=== PATIENT | male | born 1930 | race Caucasian/White ===

== ENCOUNTER 2017-05-06 17:19 | Inpatient (IN) ==
--- NOTE | 2017-05-06 17:41 | Emergency Department Note ---
Disposition Clinical Impression: Chronic kidney disease (CKD), CHF (congestive heart failure), Dyspnea Disposition: Admitted As Inpatient Condition: Fair Referrals: Tawny Leger CNP [Primary Care Provider] - Time of Disposition: 21:20 ([facility]) SOB HPI - General Stated Complaint: low oxygen Time Seen by Provider: 05/06/17 17:41 Source: patient, family Mode of arrival: ambulatory Nursing Notes Reviewed: Yes Vital Signs Reviewed: Yes - History of Present Illness Patient having increasing dyspnea with activity was seen by the family physician nurse practitioner last week receive 2 doses of Lasix in the left thigh then had his Lasix bumped up for 3 days patient apparently missed his dose today and now is having increasing shortness of breath swelling edema in the legs unable to keep his pulse ox up according to the home health nurse came out and checked on having no fevers no chills no light headedness he said some dyspnea but no dizziness he has had no neck pain denies rashes or lesions any abdominal pain dyspnea with activity no change or decrease in urine output Pt Subjective Complaint: shortness of breath Onset (ago): day(s) (worsening today) Context: other (recent increase in peripheral edema) Severity: moderate Consistency/Duration: constant Improves with: oxygen, medication (lasix) Worsens with: exertion Known history of: congestive heart failure Associated symptoms: Reports: cough, orthopnea. Denies: chest pain, pain with inspiration, fever, wheezing, sputum production, lower extremity pain, polyuria , polydipsia, parasthesias, palpitations, hemoptysis, diaphoresis, nausea/ vomiting, syncope, abdominal pain, sense of impending doom Treatment prior to arrival: oxygen, aspirin, diuretics - Related Data Home Medications Medication Instructions Recorded Confirmed Carvedilol [Coreg] 3.125 mg PO BIDWM 02/19/15 02/07/17 Levothyroxine [Synthroid] 25 mcg PO 0630 02/19/15 02/07/17 Oxybutynin [Ditropan] 5 mg PO DAILY 02/19/15 02/07/17 Tamsulosin [Flomax] 0.4 mg PO HS 02/19/15 02/07/17 Rivaroxaban [Xarelto] 20 mg PO DAILY 01/26/16 02/07/17 Albuterol Sulfate [Albuterol 2 inh IH Q6HR PRN 01/30/16 02/07/17 Inhaler] Atorvastatin Calcium [Lipitor] 80 mg PO DAILY 01/30/16 02/07/17 Finasteride [Proscar] 5 mg PO DAILY 01/30/16 02/07/17 Multivitamin [Multi-Day Vitamins] 1 tab PO DAILY 01/30/16 02/07/17 Nitroglycerin [Nitrostat] 0.4 mg SL Q5-6MIN PRN 01/30/16 02/07/17 Allergies Allergy/AdvReac Type Severity Reaction Status Date / Time Penicillins Allergy Hives Verified 02/07/17 19:50 All systems ED: reviewed and negative except as stated. Review of Systems: As Per HPI Constitutional: Denies: fever, chills, weakness Eyes: Denies: eye pain, eye discharge ENT ED: Denies: ear pain, throat pain Cardiovascular: Reports: dyspnea on exertion, orthopnea, edema, paroxysmal nocturnal dyspnea. Denies: chest pain, palpitations Respiratory: Denies: cough, dyspnea, wheezes Gastrointestinal: Denies: abdominal pain, nausea, vomiting Genitourinary: Reports: frequency. Denies: urgency, dysuria Musculoskeletal: Denies: back pain, neck pain Integumentary: Denies: rash, abrasion Neurological: Denies: headache, weakness Psychiatric: Denies: anxiety Endocrine: Denies: fatigue Hematological/Lymphatic: Denies: easy bleeding Allergic/Immunologic: Denies: facial swelling Past Medical History - Past Medical History Attestation: Yes The following information was validated with the patient. Source: patient, old records reviewed, obtained from family, nursing notes reviewed Medical history: Reports: renal disease, myocardial infarction, atrial fibrillation, hyperlipidemia, hypertension, CVA, TIA, thyroid disease, cardiomyopathy, CHF Surgical history: Reports: cataract (Bilateral cataract surgery), pacemaker/AICD Psychiatric history: Reports: no psych history - Social History Smoking Status: Never smoker Smokeless Tobacco Status: No Alcohol use: Reports: none Drug use: Reports: none Physical Exam - General Limitations: no limitations General appearance: alert, in no apparent distress - Head Head exam: atraumatic, normocephalic, normal inspection - Eye Eye exam: Present: normal appearance, PERRL, EOMI - ENT ENT exam: normal exam, normal oropharynx, mucous membranes moist, normal external ear exam - Neck Neck exam: Present: normal inspection, full ROM, trachea midline - Chest Chest inspection: Present: normal inspection, symmetric chest wall rise - Respiratory Respiratory exam: Present: prolonged expiratory phase, other (crackles) - Cardiovascular Cardiovascular exam: Present: regular rate, normal rhythm, normal heart sounds - Abdominal Exam Abdominal exam: Present: soft, Non-Tender, normal bowel sounds. Absent: mass, pulsatile mass - Expanded Upper Extremity Exam Shoulder exam: Present: normal inspection, full ROM Arm exam: Present: normal inspection, full ROM Elbow exam: Present: normal inspection, full ROM Forearm/Wrist exam: Present: normal inspection, full ROM Hand exam: Present: normal inspection, full ROM Vascular exam: Normal: capillary refill, radial pulse - Expanded Lower Extremity Exam Hip/Pelvis exam: Present: normal inspection, full ROM Upper leg exam: Present: normal inspection, full ROM Knee exam: Present: normal inspection, full ROM Lower leg exam: Present: normal inspection, full ROM, swelling (distal third) Ankle exam: Present: normal inspection, full ROM, swelling Foot/toe exam: Present: normal inspection, full ROM, swelling Neurovascular/Tendon exam: Present: normal capillary refill, normal fine/light touch. Absent: motor deficit, sensory deficit, tendon deficit Gait: observed and normal - Back Exam Back exam: Present: normal inspection, full ROM. Absent: muscle spasm - Neurological Exam Neurological exam: Present: alert, oriented X3, CN II-XII intact - Psychiatric Psychiatric exam: Present: normal affect, normal mood - Skin Skin exam: Present: warm, dry, intact, normal color Course Course Narrative: Seen and examined patient reportedly had sats at between 7888% at home on arrival here then with 2 L of O2 similarly had gone home he is running at 94-95 % does become a little distant dyspneic with activity as result patient was given 1 mg of Bumex after reviewing of the chest x-ray laboratory is obtained I spoke with Dr. Maldonado we repeated labs with the troponin being repeated it when of 0.01 he was comfortable with keeping the patient here as well as a patient patient was given additional 1 mg of Bumex here in the ER patient was transferred to [facility] for further management of the congestive heart failure most likely brought on by the renal impairment also most likely brought on because he missed a dose of medications earlier today as result transferred to [facility] for further management Vital Signs Temperature 98 F 05/06/17 17:39 Pulse Rate 69 05/06/17 17:39 Respiratory Rate 18 05/06/17 17:39 Blood Pressure 109/53 05/06/17 17:39 O2 Sat by Pulse Oximetry 100 05/06/17 17:39 Temperature 98 F 05/06/17 17:39 Pulse Rate 69 05/06/17 17:39 Respiratory Rate 18 05/06/17 17:39 Blood Pressure 109/53 05/06/17 17:39 O2 Sat by Pulse Oximetry 100 05/06/17 17:39 Oxygen Delivery Oxygen Delivery Nasal Cannula Shortness of Breath/Dyspnea - MDM Narrative Medical decision making narrative: Pulmonary edema myocardial infarction renal impairment - Differential Diagnosis Likely: congestive heart failure - Medical Records Medical records reviewed: Yes I reviewed the patient's medical records. - Lab Data Lab results reviewed: Yes I reviewed the patient's lab results. - Radiology Data Radiology results reviewed: Yes I reviewed the patient's radiology results. ITS Impressions Chest X-Ray 05/06/17 17:40 IMPRESSION: Findings suggest congestive heart failure D/ / Phil Griffith MD / Phil Griffith MD Interpreting Provider: Phil Griffith MD - EKG Data EKG attestation: Yes I reviewed and interpreted this EKG. EKG results narrative: Sinus rhythm first degree AV block right bundle-branch rate 66 OK-2 17 QRS 149 QT 470 and axis -63 PVCs unifocal etiology Critical Care Time Critical Care Time: No
[2017-05-06] MEDS ORDERED: Bumetanide 1 MG TABLET PO ONE (18:10)
[2017-05-06 18:31] LABS: Basophils % 0.3 %; Eosinophils % 0.1 %; Hematocrit 31.2 % (37.5-50.1); Hemoglobin 9.5 g/dL (12.9-16.9); Immature Granulocytes % 0.2 % (0-4); Lymphocytes # 0.4 K/mcL (0.6-4.6); Lymphocytes % 4.9 %; Mean Corpuscular HGB Conc 30.4 g/dL (31.6-35.5); Mean Corpuscular Hemoglobin 27.9 pg (28.0-33.3); Mean Corpuscular Volume 91.8 fL (83.0-100.0); Mean Platelet Volume 9.9 fL (9.4-12.4); Monocytes # 0.8 K/mcL (0.0-1.3); Monocytes % 9.6 %; Neutrophils # 7.4 K/mcL (1.6-8.9); Platelet Count 190 K/mcL (140-400); Red Cell Distribution Width 19.9 % (11.5-14.5); Segmented Neutrophils % 84.9 %
[2017-05-06 18:46] LABS: Calcium 9.3 mg/dL (8.6-10.8); Potassium 4.3 mEq/L (3.5-4.5)
[2017-05-07] MEDS ORDERED: Nitroglycerin 0.4 MG TAB.SUBL SL PRN (00:42)
[2017-05-07 07:15] LABS: Basophils % 0.5 %; Eosinophils # 0.1 K/mcL (0.0-0.6); Eosinophils % 1.4 %; Hematocrit 28.4 % (37.5-50.1); Hemoglobin 8.9 g/dL (12.9-16.9); Immature Granulocytes % 0.2 % (0-4); Lymphocytes # 0.5 K/mcL (0.6-4.6); Lymphocytes % 6.1 %; Mean Corpuscular HGB Conc 31.3 g/dL (31.6-35.5); Mean Corpuscular Hemoglobin 28.3 pg (28.0-33.3); Mean Corpuscular Volume 90.4 fL (83.0-100.0); Monocytes # 0.9 K/mcL (0.0-1.3); Monocytes % 11.3 %; Neutrophils # 6.7 K/mcL (1.6-8.9); Platelet Count 181 K/mcL (140-400); Red Blood Count 3.14 M/mcL (4.19-5.50); Red Cell Distribution Width 19.9 % (11.5-14.5); Segmented Neutrophils % 80.5 %
--- NOTE | 2017-05-07 07:29 | Internal Med History&Physical ---
Date of Encounter: 05/07/17 Time of Encounter: 06:53 Assessment and Plan (1) Acute congestive heart failure Current visit: Yes Status: Acute Acute congestive heart failure in patient with known history of ischemic cardiomyopathy. He failed to show improvement in the office as well as at the metal wire technician office and required ER visit. He is showing improvement with having had IV Bumex in the emergency room. He has elevated BNP beyond his chronic elevated state. I doubt he has had an acute OH. He does have chronically elevated troponins and no escalation beyond the baseline obtained in ER. He is showing improvement with 1 dose of IV Bumex. Continue with his chronic oxygen therapy. Qualifiers: Congestive heart failure type: systolic Qualified Code(s): I50.21 - Acute systolic (congestive) heart failure (2) Cardiomyopathy, ischemic Current visit: Yes Status: Chronic History of chronic ischemic cardiomyopathy. We will recheck an echocardiogram to document anatomy and ejection fraction. (3) Chronic kidney disease (CKD) Current visit: Yes Status: Chronic History chronic kidney disease and relatively stable. Slight exacerbation on admission. Will need to be careful not to over diurese. He has already been seen by nephrology in the past. Try to avoid nephrotoxic medications. Qualifiers: Chronic kidney disease stage: stage 3 (moderate) Qualified Code(s): N18.3 - Chronic kidney disease, stage 3 (moderate) (4) Paroxysmal atrial fibrillation Current visit: Yes Status: Chronic History of paroxysmal atrial fibrillation. Currently in sinus rhythm. We will continue the cardiac monitoring. Maintain his usual medications. He is already anticoagulated with Xarelto. (5) Hypertension Current visit: Yes Status: Chronic History of chronic hypertension. Continue current medication and follow blood pressure and try to avoid hypotension from over diuresis. Qualifiers: Hypertension type: essential hypertension Qualified Code(s): I10 - Essential (primary) hypertension (6) Recurrent falls Current visit: Yes Status: Acute Patient and daughter reports he has had recurring falls. Sometimes he trips over his oxygen cord as he is too weak to lift up his feet sometimes. He uses a walker at home. We will try to arrange outpatient physical therapy for gait training. He has at further risk of falls because of previous CVA. (7) Skin abrasion Current visit: Yes Status: Acute Healing skin abrasion on his left knee and slowly healing ulcer on left lateral foot. No secondary infection. Continue conservative measures. (8) History of CVA (cerebrovascular accident) Current visit: No Status: Chronic Previous CVA and gait abnormality and slower cognitive functioning. These appear to be stable, but weakness overall exacerbated with his cardiovascular he is using a walker at home. He no longer drives. (9) Hypothyroidism Current visit: Yes Status: Chronic History of chronic hypothyroidism. His current TSH is elevated more. We will adjust his medication upward. We will continue to watch closely because of amiodarone use Qualifiers: Hypothyroidism type: unspecified Qualified Code(s): E03.9 - Hypothyroidism , unspecified (10) Chronic anemia Current visit: Yes Status: Chronic He has a history of chronic anemia. He has plans to see Dr. Muhammad for colonoscopy as recommended by nephrology according to his daughter. His last colonoscopy was 10-12 years ago according to his history. No melena or hematochezia. The anemia may be secondary to his chronic kidney disease as well. He is not to the point where he needs a transfusion. (11) DVT prophylaxis Current visit: Yes Status: Acute He is already anticoagulated with Xarelto. Currently no sign of DVT. Internal Medicine - H&P: HPI Chief complaint: swelling in legs,could not get oxygen sarah to register Admitted From: Emergency Dept Plans for Post Hospital Care: Home History of present illness: Mr. Dorado is a 86 year old male with known history of paroxysmal atrial fibrillation, implanted pacer defibrillator, cardiomyopathy with 25% ejection fraction was admitted via the ER having come to the hospital not being able to register his oxygen saturation at home. Is found to have congestive heart failure with elevated BNP, increased pulmonary vascular changes on his chest x- ray, dyspnea, edema. Mildly elevated troponin. No chest pain. He had been evaluated in the office 04/30/17 by nurse practitioner due to edema and was told to increase his Lasix to 80 mg a morning 40 in the afternoon. He was seen by his metal wire technician Dr. Shannon the next day who agreed with the increased diuresis for 3 days. No other intervention at that point. He did recommend an echocardiogram, I do not see any done yet. Patient states that he had had decrease in his weight of 4 pounds and felt better and had less edema, but the edema went back up after about 2 days. His daughter thought that he was short of breath particularly when he was talking. He denies a cardiac type chest pain, palpitations, irregular heartbeat sensation. No nausea or vomiting or GI symptoms. He does note increased urine output after he had increased Lasix. He denied any orthopnea at home. He has had recurrent falling episodes at home. The last time he tripped over his oxygen cannula. The latest which she has an abrasion on the left knee and an ulcer on the left lateral fifth metatarsal from having laid on the floor for so long. When I was able to talk to the daughter via phone, she told me that her father was having increased shortness of breath especially noticeable when he is speaking. His oxygen saturation was 79%. She said he is getting more unstable on his feet and would like for him to have physical therapy to keep him ambulating better and stronger and less falling episodes. Past Med Surg Social Fam HX - Past Medical History Medical history: atrial fibrillation, cardiomyopathy (20-25% EF/AICD present), CHF, CVA, hyperlipidemia, hypertension, myocardial infarction, renal disease, thyroid disease, TIA Psychiatric history: no psych history - Past Surgical History Surgical History: carotid endarterectomy (Right side), cataract, pacemaker/AICD - Social History Smoking Status: Never smoker Smokeless Tobacco Status: No Alcohol use: none Drug use: none - Family History Father History Unknown: Yes Living Status: Hx Family Cardiac Disorders: Yes (Heart disease, history of passing out a lot) Mother History Unknown: Yes Living Status: Hx Family Cardiac Disorders: Yes (History of angina and CVA) Internal Medicine - H&P: Meds Carvedilol [Coreg] 3.125 mg PO BIDWM 02/19/15 [History] Levothyroxine [Synthroid] 50 mcg PO 0630 02/19/15 [History] Tamsulosin [Flomax] 0.4 mg PO HS 02/19/15 [History] Rivaroxaban [Xarelto] 10 mg PO DAILY 01/26/16 [History] Albuterol Sulfate [Albuterol Inhaler] 2 inh IH Q4HR PRN 01/30/16 [History] Atorvastatin Calcium [Lipitor] 80 mg PO DAILY 01/30/16 [History] Finasteride [Proscar] 5 mg PO DAILY 01/30/16 [History] Multivitamin [Multi-Day Vitamins] 1 tab PO DAILY 01/30/16 [History] Nitroglycerin [Nitrostat] 0.4 mg SL Q5-6MIN PRN 01/30/16 [History] Amiodarone [Cordarone] 200 mg PO DAILY 05/07/17 [History] Aspirin [Lo-Dose Aspirin EC] 81 mg PO DAILY 05/07/17 [History] Docusate [Colace] 100 mg PO DAILY 05/07/17 [History] Furosemide [Lasix] 40 mg PO BIDWM 05/07/17 [History] Isosorbide MONOnitrate (24 HR) [Imdur] 30 mg PO DAILY 05/07/17 [History] Temazepam [Restoril] 7.5 mg PO HS PRN 05/07/17 [History] 3 Allergy/AdvReac Type Severity Reaction Status Date / Time Penicillins Allergy Hives Verified 05/07/17 00:15 - Constitutional Constitutional: weakness (States he is weaker in his legs ), no anorexia, no fever(s), no night sweats - EENT Eyes: no loss of vision, no other visual disturbances Ears: no ear discharge, no ear pain Nose, mouth and throat: no sinus pressure, no sore throat - Cardiovascular Cardiovascular ROS IM: no chest pain, no irregular heart rhythm, no lightheadedness, no syncope - Respiratory Respiratory: wheezing (He can hear himself wheezing when he speaks or takes deep breaths), no hemoptysis, no excessive phlegm production - Gastrointestinal Gastrointestinal: no change in bowel habits, no coffee ground emesis, no constipation, no diarrhea, no hematemesis, no melena, no vomiting - Genitourinary Genitourinary ROS male: urinary incontinence (Noticed when he cannot get to the toilet in time), urinary urgency (He states that nurses cannot get to him soon enough to give the urinal or sit on the toilet), no dysuria - Musculoskeletal Musculoskeletal ROS IM: muscle weakness (He feels that he is having generalized weakness in his legs) - Integumentary Integumentary IM: non-healing lesions (He showed me the scabbed abrasion on his knee and the slowly healing ulcer on his left fifth metatarsal area) - Neurological Neurological ROS: abnormal gait (He is unstable when walking and needs to use his walker), frequent falls (And easily trips and falls over his oxygen cannula) , no confusion, no dizziness, no radicular pain, no tremor(s), no vertigo - Psychiatric Psychiatric: no change in appetite, no confusion - Endocrine Endocrine IM: no excessive sweating, no polydipsia, no polyuria - Allergic/Immunologic Allergic/Immunologic: wheezing (Sometimes he can hear wheezing when he is taking deep breaths or talking) - Constitutional Vitals: Temp Pulse Resp BP Pulse Ox 97.7 F 70 14 95/54 93 05/07/17 04:00 05/07/17 04:00 05/07/17 04:00 05/07/17 04:00 05/07/17 04:00 General appearance: Present: A&O X 3, no acute distress, answers questions appropriately - Eye Eye exam: Present: EOMI, PERRL. Absent: scleral icterus - ENT ENT exam: Present: normal external ear exam, TM's normal bilaterally - Neck Neck exam general surgery: Absent: lymphadenopathy, tenderness, nuchal rigidity , thyromegaly - Respiratory Respiratory exam: Present: decreased breath sounds (Decreased breath sounds throughout, particularly decreased breath sounds in the left side heard anteriorly.), wheezes (I can hear audible wheezing when he breathes in and out.) . Absent: rales - Cardiovascular Cardiovascular exam: Present: RRR, +S1, +S2, systolic murmur (2/6 systolic murmur at the outlet and left sternal border.). Absent: gallop, JVD - GI/Abdominal GI/Abdominal exam: Present: soft. Absent: hepatomegaly, mass, pulsatile mass, splenomegaly, tenderness - Extremities Exam Extremities exam: Present: normal capillary refill, pedal edema (He has pitting edema from his feet to nearly his knees bilaterally.), warm. Absent: calf tenderness, cyanotic, joint swelling Additional comments: Left proximal fifth metatarsal area shows a 4 mm healing ulcer covered with a Band-Aid. Left knee shows a 1 cm abrasion with scab which is healing without secondary infection. - Neurological Exam Neurological exam: Present: alert, CN II-XII intact, oriented X3, strengths equal and symetr throughout (As tested in bed. I did not get him out of bed to test his gait or balance.) - Skin Skin exam: Present: abrasion (Healing abrasion at the left knee about 1 cm diameter with a scab.), erythema (Both his feet are slightly reddened from the edema.) Additional comments: Left proximal fifth metatarsal shows a 4 mm healing superficial ulcer covered with a Band-Aid. No secondary infection. Internal Med - H&P Results - Labs CBC & Chem 7: 05/07/17 07:02 05/07/17 07:02 Labs: Labs have been reviewed. Increased BNP, slightly increased creatinine with a history of chronic kidney disease. Chronic anemia noted. - VTE Reasons for not Prescribing Prophylaxis: Not indicated-Anticoagulated or INR therapeutic
[2017-05-07 07:30] LABS: Calcium 8.9 mg/dL (8.6-10.8); Potassium 4.1 mEq/L (3.5-4.5)
[2017-05-07 07:31] LABS: Chol/HDL Ratio 2.7 (0-4.9)
[2017-05-07] MEDS: Isosorbide MONOnitrate (24 HR) 30 MG TAB.ER.24H PO SCH (09:20)
[2017-05-07] MEDS: Finasteride 5 MG TABLET PO SCH (09:20)
[2017-05-07] MEDS: Multivit/Ca/Min/Fe/FA 1 TAB TABLET PO SCH (09:20)
[2017-05-07] MEDS: *HR* Rivaroxaban 10 MG TABLET PO SCH (09:20)
[2017-05-07] MEDS: Furosemide 40 MG TABLET PO SCH ×2 (09:20→17:03)
[2017-05-07] MEDS: *HR* Amiodarone 200 MG TABLET PO SCH (09:20)
[2017-05-07] MEDS: Aspirin Enteric Coated 81 MG Tablet PO SCH (09:20)
[2017-05-07 13:59] LABS: Thyroid Stimulating Hormone 6.52 mcIU/mL (0.350-4.840)
--- NOTE | 2017-05-07 14:22 | Electrocardiograph Report ---
[place] [id number] Test Date: 2017-05-06 Pat Name: Amandeep Dorado Department: 2000 Room: 116 Gender: M Inspector Watch Assembly: : 1930 Requested By: Shital Pereyra Order Number: [id number] Reading MD: Mary Jesus Measurements Intervals [place] Rate: 66 P: 257 CT: 217 QRS: -63 QRSD: 149 T: 20 QT: 470 QTc: 484 Interpretive Statements SINUS RHYTHM WITH FIRST DEGREE AV BLOCK WITH OCCASIONAL VENTRICULAR PREMATURE COMPLEXES MARKED LEFT AXIS DEVIATION RIGHT BUNDLE BRANCH BLOCK Electronically Signed On 05-07-2017 14:20:31 EST by Mary Jesus
--- NOTE | 2017-05-07 19:26 | Event Note ---
Date of Encounter: 05/07/17 Time of Encounter: 19:23 I reevaluated patient rakan. He denies any chest pain or dyspnea. The wheezing when he is taking deep breaths and talking is gone. He is able to sit in a chair. His saturations while wearing oxygen is good. He still has troubles collecting urine as he is incontinent and having urgency as well I spoke with his daughter via phone. We talked about arranging outpatient physical therapy help with his gait. She states she does much better when he is more active. He has home OT but they only work with upper body and do not want to do any walking or use his stationary bicycle. We talked about the workup including echocardiogram tomorrow. He is planning on having colonoscopy with Dr. Muhammad for his anemia as recommended by the cra officer. (She wanted to have him get that done well in the hospital but I told her that would not be indicated nor safe in his current condition.) If he is stable we will consider discharge to home tomorrow night with close follow-up.
[2017-05-08 02:23] LABS: Bilirubin,Urine Negative (Negative); Blood,Urine Moderate (Negative); Clarity,Urine Slightly Cloudy (Clear); Color,Urine Yellow (Yellow); Glucose,Urine (UA) Normal (Normal); Ketones,Urine Negative (Negative); Leukocyte Esterase,Urine Small (Negative); Nitrite,Urine Positive (Negative); Protein,Urine Negative (Neg-Trace); Specific Gravity,Urine 1.015 (1.010-1.025); Urobilinogen,Urine Normal (Normal)
[2017-05-08 02:24] LABS: Bacteria,Urine Moderate per hpf (None-Few); Hyaline Casts,Urine Few per lpf (None-Few)
[2017-05-08 05:42] LABS: Basophils % 0.5 %; Eosinophils # 0.1 K/mcL (0.0-0.6); Eosinophils % 1.3 %; Hematocrit 27.8 % (37.5-50.1); Hemoglobin 8.6 g/dL (12.9-16.9); Immature Granulocytes % 0.3 % (0-4); Lymphocytes # 0.6 K/mcL (0.6-4.6); Mean Corpuscular HGB Conc 30.9 g/dL (31.6-35.5); Mean Corpuscular Volume 90.6 fL (83.0-100.0); Monocytes % 12.8 %; Neutrophils # 5.8 K/mcL (1.6-8.9); Platelet Count 166 K/mcL (140-400); Red Blood Count 3.07 M/mcL (4.19-5.50); Red Cell Distribution Width 19.9 % (11.5-14.5); Segmented Neutrophils % 77.1 %
[2017-05-08 05:55] LABS: Calcium 8.6 mg/dL (8.6-10.8); Potassium 4.2 mEq/L (3.5-4.5)
[2017-05-08] MEDS ORDERED: Bumetanide 1 MG/4 ML VIAL IVP ONE (07:09)
--- NOTE | 2017-05-08 07:11 | Discharge Summary ---
Date of Encounter: 05/13/17 Time of Encounter: 06:56 - Discharge Diagnosis (1) Acute congestive heart failure Priority: Primary Status: Acute Comments: Patient with known history of ischemic cardiac myopathy was admitted with acute congestive heart failure and hypoxia. His workup in the ER included a mildly elevated troponin which remained stable and he has had this in the past. Unlikely for an acute IA. He had no cardiac type chest pain. He was given Bumex intravenously and improved. His BNP was in the 3000 range. His lung findings have been minimal. He is having no dyspnea. No cardiac chest pain. He is been ambulatory in the hallway maintaining good saturation and good heart rate. Follow-up echocardiogram showed 30% ejection fraction as well as moderate to severe mitral regurgitation. He is been seen by hydraulic billet maker recently. His congestive heart failure is stable on day of discharge to transfer to swing bed, but he had deconditioning and will have ongoing therapies. Qualifiers: Congestive heart failure type: systolic Qualified Code(s): I50.21 - Acute systolic (congestive) heart failure (2) Cardiomyopathy, ischemic Priority: Secondary Status: Chronic Comments: Known history of ischemic cardiomyopathy. His echocardiogram showed ejection fraction 30% and moderate to severe mitral regurgitation. This is no significant change for him. He has seen a hydraulic billet maker recently. (3) Chronic kidney disease (CKD) Priority: Secondary Status: Chronic Comments: History of chronic kidney disease with relatively stable creatinine and 2.5 range. He sees a dry mill operator in [place]. I did not change his medications. Qualifiers: Chronic kidney disease stage: stage 3 (moderate) Qualified Code(s): N18.3 - Chronic kidney disease, stage 3 (moderate) (4) Paroxysmal atrial fibrillation Priority: Secondary Status: Chronic Comments: He has a history of paroxysmal atrial fibrillation. During the stay he has been in normal sinus rhythm. He is a pacer defibrillator. I did not change his cardiac medications. He is anticoagulated. (5) Hypertension Priority: Secondary Status: Chronic Comments: His blood pressures have been under good control. I did not alter his cardiac hypertensive medications. Qualifiers: Hypertension type: essential hypertension Qualified Code(s): I10 - Essential (primary) hypertension (6) Recurrent falls Priority: Secondary Status: Acute Comments: He has had recurrent falling episodes at home. Sometimes he will trip over his oxygen cannula. He is to use his walker. He was stable medically regarding his congestive heart failure but with his weakness, gait abnormality and deconditioning he was transferred to a swing bed for ongoing therapies. (7) Skin abrasion Priority: Secondary Status: Acute Comments: He has an abrasion at the left knee as well as an ulcer at the left lateral foot. Both are healing slowly. These occurred from a fall. (8) History of CVA (cerebrovascular accident) Priority: Secondary Status: Chronic Comments: History of previous CVA and gait abnormality. He uses a walker. He became deconditioned having been hospitalized for congestive heart failure and will be transferred to a swing bed. (9) Hypothyroidism Priority: Secondary Status: Chronic Comments: History of chronic hypothyroidism. His last TSH was elevating and his Synthroid was increased to 75 g. Qualifiers: Hypothyroidism type: unspecified Qualified Code(s): E03.9 - Hypothyroidism , unspecified (10) Chronic anemia Priority: Secondary Status: Chronic Comments: His history of chronic anemia. Likely this is from chronic kidney disease. His dry mill operator started him on Procrit recently. He is planning to see GI for upper and lower endoscopy. His hemoglobin has been stable. No obvious acute bleeding. (11) Vomiting Priority: Secondary Status: Acute Comments: Patient developed emesis. He had no abdominal pain. His workup included CT scan of the abdomen, urine testing, blood work which basically unremarkable except for minimally elevated LFTs. The PPI was started in case she was having gastric ulcer or reflux disease triggering this. Prior to his discharge from [facility] to a swing bed he had had no vomiting for 2 days. He does have an appointment to see a GI specialist in a few weeks. Qualifiers: Vomiting type: unspecified Vomiting Intractability: non-intractable Nausea presence: without nausea Qualified Code(s): R11.11 - Vomiting without nausea - Discharge Medications Prescriptions: Levothyroxine [Synthroid] 75 mcg PO DAILY@0630 #30 tablet Home Medications: Carvedilol [Coreg] 3.125 mg PO BIDWM 02/19/15 [History] Tamsulosin [Flomax] 0.4 mg PO HS 02/19/15 [History] Rivaroxaban [Xarelto] 10 mg PO DAILY 01/26/16 [History] Albuterol Sulfate [Albuterol Inhaler] 2 inh IH Q4HR PRN 01/30/16 [History] Atorvastatin Calcium [Lipitor] 80 mg PO DAILY 01/30/16 [History] Finasteride [Proscar] 5 mg PO DAILY 01/30/16 [History] Multivitamin [Multi-Day Vitamins] 1 tab PO DAILY 01/30/16 [History] Nitroglycerin [Nitrostat] 0.4 mg SL Q5-6MIN PRN 01/30/16 [History] Amiodarone [Cordarone] 200 mg PO DAILY 05/07/17 [History] Aspirin [Lo-Dose Aspirin EC] 81 mg PO DAILY 05/07/17 [History] Docusate [Colace] 100 mg PO DAILY 05/07/17 [History] Furosemide [Lasix] 40 mg PO BIDWM 05/07/17 [History] Isosorbide MONOnitrate (24 HR) [Imdur] 30 mg PO DAILY 05/07/17 [History] Temazepam [Restoril] 7.5 mg PO HS PRN 05/07/17 [History] Levothyroxine [Synthroid] 75 mcg PO DAILY@0630 #30 tablet 05/08/17 [Rx] Allergies/Adverse Reactions: 3 Allergy/AdvReac Type Severity Reaction Status Date / Time Penicillins Allergy Hives Verified 05/07/17 00:15 Procedures/tests Complete & Pending: Procedures Performed prior 72 hours Category Date Time Status EV echocardiogram Routine Y 05/07/17 06:57 Ordered Date of admission: 05/06/17 23:56 Primary care physician: Tawny Leger CNP Discharging clinician: Dre Maldonado Anticipated date of discharge: 05/13/17 - Patient Status Disposition: Transfer Hospital Swing Bed Condition: Good Functional capacity at discharge: uses cane/walker Overall status at discharge: patient is not back to baseline - Discharge Instructions Follow Up With: Tawny Leger CNP [Primary Care Provider] - Forms: ED Satisfaction Letter - Diet and Activity Activity: ambulate only with your walker, wear oxygen at all times Diet: low fat, low cholesterol, low salt diet Interval History: He has had no vomiting for 2 days. He feels better except he is deconditioned. He will be transferred to a swing bed. Denies chest pain or dyspnea or abdominal pain. Hospital course: Mr. Dorado is a 86 year old male with known history of ischemic cardiomyopathy and chronic kidney disease was admitted with acute congestive heart failure and hypoxia. He became stable from his congestive heart failure. However he is deconditioning, weakness with his gait and risk for falling. We are arranging swing bed for ongoing therapies prior to going home. Please see the above diagnoses and plans - Time Spent with Patient Total time spent providing and/or coordinating discharge services: - Constitutional Vitals: Temp Pulse Resp BP Pulse Ox 98.3 F 67 16 91/52 97 05/08/17 03:40 05/08/17 03:40 05/08/17 03:40 05/08/17 03:40 05/08/17 03:40 General appearance: Present: A&O X 3, no acute distress, answers questions appropriately - Respiratory Additional comments: Rare faint crackles heard throughout. Audible slight wheeze heard when taking a deep breath. Breath sounds heard in all gallegos - Cardiovascular Cardiovascular exam: Present: RRR, +S1, +S2, systolic murmur (2/6 systolic murmur) - GI/Abdominal GI/Abdominal exam: Present: soft. Absent: tenderness - Extremities Exam Extremities exam: Absent: calf tenderness Additional comments: Mild pitting edema of the feet and up to two thirds of the mahoney. Overall improved. - Skin Additional comments: The left knee abrasion and left foot ulcer unchanged - VTE Reasons for not Prescribing Prophylaxis: Not indicated-Anticoagulated or INR therapeutic
[2017-05-08] MEDS: *HR* Rivaroxaban 10 MG TABLET PO SCH (08:53)
[2017-05-08] MEDS: Furosemide 40 MG TABLET PO SCH ×2 (08:53→16:13)
[2017-05-08] MEDS: Isosorbide MONOnitrate (24 HR) 30 MG TAB.ER.24H PO SCH (08:53)
[2017-05-08] MEDS: Aspirin Enteric Coated 81 MG Tablet PO SCH (08:54)
[2017-05-08] MEDS: Multivit/Ca/Min/Fe/FA 1 TAB TABLET PO SCH (08:54)
[2017-05-08] MEDS: Finasteride 5 MG TABLET PO SCH (08:54)
[2017-05-08] MEDS: *HR* Amiodarone 200 MG TABLET PO SCH (08:54)
[2017-05-08] MEDS ORDERED: Ondansetron ODT 4 MG TAB.RAPDIS SL ONE (15:55)
--- NOTE | 2017-05-08 19:45 | Internal Med Progress Note ---
Date of Encounter: 05/08/17 Time of Encounter: 19:42 - Assessment and plan (1) Acute congestive heart failure Current Visit: Yes Status: Acute Assessment and plan: History of acute congestive heart failure. His ejection fraction today was measured as 30%. He has had good urine output. His weight has decreased. He walked in the hallway well and had no dyspnea or chest pain or tachycardia. If he is stable tomorrow he may be discharged to home. We will plan to continue his Lasix 40mg twice a day, if he has extra edema he will take an extra one. Qualifiers: Congestive heart failure type: systolic Qualified Code(s): I50.21 - Acute systolic (congestive) heart failure (2) Cardiomyopathy, ischemic Current Visit: Yes Status: Chronic Assessment and plan: He had an echocardiogram done today and ejection fraction is 30%. This is about what he has had in the past. (3) Chronic kidney disease (CKD) Current Visit: Yes Status: Chronic Assessment and plan: His creatinine is stable. He sees nephrology at [place]. Qualifiers: Chronic kidney disease stage: stage 3 (moderate) Qualified Code(s): N18.3 - Chronic kidney disease, stage 3 (moderate) (4) Paroxysmal atrial fibrillation Current Visit: Yes Status: Chronic Assessment and plan: He has remained in sinus rhythm the entire visit. (5) Hypertension Current Visit: Yes Status: Chronic Assessment and plan: His blood pressure has been under good control. Qualifiers: Hypertension type: essential hypertension Qualified Code(s): I10 - Essential (primary) hypertension (6) Recurrent falls Current Visit: Yes Status: Acute (7) Skin abrasion Current Visit: Yes Status: Acute (8) History of CVA (cerebrovascular accident) Current Visit: No Status: Chronic (9) Hypothyroidism Current Visit: Yes Status: Chronic Assessment and plan: I increased his Synthroid today as his TSH is elevating. Qualifiers: Hypothyroidism type: unspecified Qualified Code(s): E03.9 - Hypothyroidism , unspecified (10) Chronic anemia Current Visit: Yes Status: Chronic Assessment and plan: Relatively stable. He is due to see GI for upper and lower endoscopies. He does have chronic renal failure contributing to the anemia. (11) DVT prophylaxis Current Visit: Yes Status: Acute (12) Vomiting Current Visit: Yes Status: Acute Assessment and plan: He had an episode of vomiting this afternoon during his echocardiogram. This evening after supper he vomited also. It is not projectile. He has normal bowel sounds. No abdominal tenderness. He had a good bowel movement today. He had Zofran. We will monitor. Qualifiers: Vomiting type: unspecified Vomiting Intractability: non-intractable Nausea presence: without nausea Qualified Code(s): R11.11 - Vomiting without nausea - Subjective Interval history: I saw the patient earlier this morning and again tonight. This morning he felt fine. No chest pain, palpitation, dyspnea. He was eager to plan to go home tonight. However, this afternoon he vomited and again tonight when I came to reevaluate him he regurgitated his supper. It was not projectile. Today he had a good bowel movement. He has good bowel sounds. He feels fine afterwards. I ambulated him down the entire length of the hallway with his oxygen and his walker and he did great. Afterwards his saturation was 96% pulse 70. He is having no symptoms currently. Since she has had 2 vomiting episodes today were going to postpone his discharge tonight. His daughter came in this evening and we talked this over. - Constitutional Vitals: Temp Pulse Resp BP Pulse Ox 97.6 F 66 16 108/61 100 05/08/17 17:03 05/08/17 17:03 05/08/17 17:03 05/08/17 17:03 05/08/17 17:03 General appearance: Present: A&O X 3, no acute distress, answers questions appropriately - Respiratory Additional comments: Slightly diminished breath sounds throughout, diminished breath sounds left base but better. No rhonchi or rales. No respiratory distress - Cardiovascular Cardiovascular exam: Present: RRR, +S1, +S2, systolic murmur (2/6 systolic murmur) - GI/Abdominal GI/Abdominal exam: Present: normal bowel sounds, soft, no peritoneal signs. Absent: distended, guarding, mass, tenderness - Extremities Exam Additional comments: He still has some edema in lower extremities, he has his elastic stockings in place. Internal Medicine: Result - Labs CBC & Chem 7: 05/08/17 05:25 05/08/17 05:25 Labs: Short CBC 05/08/17 Range/Units 05:25 WBC 7.5 (4.3-11.1) K/mcL Hgb 8.6 L (12.9-16.9) g/dL Hct 27.8 L (37.5-50.1) % Plt Count 166 (140-400) K/mcL Neutrophils # 5.8 (1.6-8.9) K/mcL BMP 05/08/17 05:25 Sodium 138 Potassium 4.2 Chloride 105 Carbon Dioxide 25 BUN 51 H Creatinine 2.25 H Glucose 101 H Calcium 8.6 Urine 05/08/17 Range/Units 01:30 Urine Color Yellow (Yellow) Urine Clarity Slightly Cloudy A (Clear) Urine pH 6.0 (5.0-8.0) pH Units Ur Specific [place] 1.015 (1.010-1.025) Urine Protein Negative (Neg-Trace) mg/dL Urine Glucose (UA) Normal (Normal) mg/dL Labs have been reviewed. He continues with his chronic kidney failure. His hemoglobin is slightly lower today. He has a history of chronic anemia and plans an upper and lower GI soon. - Impressions Impressions Echocardiogram 05/08/17 07:00 Impressions: LVEF 30%. Moderately dilated left ventricle. Mild concentric left ventricular hypertrophy. Atypical septal motion consistent with paced rhythm. Moderate left ventricular diastolic dysfunction. Mildly dilated right ventricle with normal appearing function. Mild-moderate aortic regurgitation. Moderate-severe mitral regurgitation. Severe tricuspid regurgitation. Severe pulmonary hypertension. Pleural effusion. A device lead was visualized in the right atrium and right ventricle. Left Ventricular Wall Motion: Rest Echo Findings The apex, apical inferior, mid inferior, basal inferior, apical anterior, mid anterior, basal anterior, apical septal, mid inferior septal, basal inferior septal, apical lateral, mid anterior lateral, basal anterior lateral, mid anterior septal, mid inferior lateral, basal anterior septal and basal inferior lateral almanza were hypokinetic. Findings: Study Quality * Technically adequate exam. ECG Findings * Paced rhythm. Left Ventricle * LVEF 30%. * Moderately dilated left ventricle. * Mild concentric left ventricular hypertrophy. * Atypical septal motion consistent with paced rhythm. * Moderate left ventricular diastolic dysfunction. Right Ventricle * Mildly dilated right ventricle with normal appearing function. Left Atrium * Moderately dilated left atrium. Right Atrium * Mildly dilated right atrium. Interatrial Septum * Interatrial septum not well evaluated. Aortic Valve * Aortic valve not well visualized. * Grossly, mildly calcified aortic valve leaflets. * Mild-moderate aortic regurgitation. * No aortic stenosis. Mitral Valve * Mildly thickened mitral valve leaflets. * Mild mitral annular calcification * Moderate-severe mitral regurgitation. * No mitral stenosis. Tricuspid Valve * Normal tricuspid valve structure. * Severe tricuspid regurgitation. * Severe pulmonary hypertension. Pulmonic Valve * Pulmonic valve not well visualized. Aorta * Normally sized aortic root. Pericardium * The pericardium appears normal. IVC * Normal IVC dimensions and inspiratory collapse. Device lead * A device lead was visualized in the right atrium and right ventricle. Pulmonary Artery * Normal visualized portions of the main pulmonary artery. Pleural Effusion * Pleural effusion. - VTE Reasons for not Prescribing Prophylaxis: Not indicated-Anticoagulated or INR therapeutic Documentation of Mechanical Device: Graduated compression elastic hosiery Consult Discharge Plan - Plan Referrals: Tawny Leger SHAREPOINT TRAINER [Primary Care Provider] -
[2017-05-09] MEDS: Ondansetron ODT 4 MG TAB.RAPDIS SL PRN ×2 (00:10→11:25)
[2017-05-09 05:49] LABS: Basophils % 0.3 %; Hematocrit 28.5 % (37.5-50.1); Hemoglobin 8.7 g/dL (12.9-16.9); Immature Granulocytes % 0.1 % (0-4); Lymphocytes # 0.4 K/mcL (0.6-4.6); Lymphocytes % 5.1 %; Mean Corpuscular HGB Conc 30.5 g/dL (31.6-35.5); Mean Corpuscular Hemoglobin 28.2 pg (28.0-33.3); Mean Corpuscular Volume 92.2 fL (83.0-100.0); Mean Platelet Volume 9.9 fL (9.4-12.4); Monocytes # 0.8 K/mcL (0.0-1.3); Monocytes % 10.6 %; Neutrophils # 6.6 K/mcL (1.6-8.9); Platelet Count 179 K/mcL (140-400); Red Blood Count 3.09 M/mcL (4.19-5.50); Red Cell Distribution Width 19.5 % (11.5-14.5); Segmented Neutrophils % 83.9 %
[2017-05-09 06:02] LABS: Albumin 2.4 g/dL (3.5-5.0); Albumin/Globulin Ratio 0.7 (1.1-2.2); Bilirubin,Total 1.3 mg/dL (0.2-1.2); Calcium 8.9 mg/dL (8.6-10.8); Globulin 3.4 g/dL (2.4-3.5); Potassium 4.4 mEq/L (3.5-4.5); Total Protein 5.8 g/dL (6.0-8.3)
[2017-05-09] MEDS: Finasteride 5 MG TABLET PO SCH (09:54)
[2017-05-09] MEDS: *HR* Amiodarone 200 MG TABLET PO SCH (09:54)
[2017-05-09] MEDS: Isosorbide MONOnitrate (24 HR) 30 MG TAB.ER.24H PO SCH (09:54)
[2017-05-09] MEDS: Aspirin Enteric Coated 81 MG Tablet PO SCH (09:55)
[2017-05-09] MEDS: *HR* Rivaroxaban 10 MG TABLET PO SCH (09:55)
[2017-05-09] MEDS: Furosemide 40 MG TABLET PO SCH ×2 (09:55→17:52)
[2017-05-09] MEDS: Multivit/Ca/Min/Fe/FA 1 TAB TABLET PO SCH (09:56)
--- NOTE | 2017-05-09 12:27 | Internal Med Progress Note ---
Date of Encounter: 05/09/17 Time of Encounter: 12:25 - Assessment and plan (1) Acute congestive heart failure Current Visit: Yes Status: Acute Assessment and plan: History of acute congestive heart failure. His ejection fraction was measured as 30%. He has had good urine output. His weight has decreased. He walked in the hallway well and had no dyspnea or chest pain or tachycardia. We will plan to continue his Lasix 40mg twice a day, if he has extra edema he will take an extra one. but may need to hold with some of his pressures going low Qualifiers: Congestive heart failure type: systolic Qualified Code(s): I50.21 - Acute systolic (congestive) heart failure (2) Vomiting Current Visit: Yes Status: Acute Assessment and plan: He had an episode of emesis this am. It is not projectile. He has normal bowel sounds. No abdominal tenderness. He had a good bowel movement yesterday. He had Zofran. We will monitor. but withe elevted lft and emesis will check ct scan Qualifiers: Vomiting type: unspecified Vomiting Intractability: non-intractable Nausea presence: without nausea Qualified Code(s): R11.11 - Vomiting without nausea (3) Cardiomyopathy, ischemic Current Visit: Yes Status: Chronic Assessment and plan: ejection fraction is 30%. This is about what he has had in the past. (4) Chronic anemia Current Visit: Yes Status: Chronic Assessment and plan: Relatively stable. He is due to see GI for upper and lower endoscopies. He does have chronic renal failure contributing to the anemia. (5) Chronic kidney disease (CKD) Current Visit: Yes Status: Chronic Assessment and plan: His creatinine is stable. He sees nephrology at [place]. Qualifiers: Chronic kidney disease stage: stage 3 (moderate) Qualified Code(s): N18.3 - Chronic kidney disease, stage 3 (moderate) (6) Hypertension Current Visit: Yes Status: Chronic Assessment and plan: His blood pressure has been under good control.but did get low this am may need to hold lasix Qualifiers: Hypertension type: essential hypertension Qualified Code(s): I10 - Essential (primary) hypertension (7) Hypothyroidism Current Visit: Yes Status: Chronic Assessment and plan: I increased his Synthroid yesterday as his TSH is elevated. Qualifiers: Hypothyroidism type: unspecified Qualified Code(s): E03.9 - Hypothyroidism , unspecified (8) Paroxysmal atrial fibrillation Current Visit: Yes Status: Chronic Assessment and plan: He has remained in sinus rhythm the entire visit. (9) DVT prophylaxis Current Visit: Yes Status: Inactive (10) Abnormality of gait following cerebrovascular accident (CVA) Current Visit: No Status: Acute (11) Elevated LFTs Current Visit: Yes Status: Acute Assessment and plan: with the emesis will check ct scan (12) UTI (urinary tract infection) Current Visit: Yes Status: Acute Assessment and plan: will add levaquin Qualifiers: Urinary tract infection type: acute cystitis Hematuria presence: with hematuria Qualified Code(s): N30.01 - Acute cystitis with hematuria - Subjective Interval history: he is not feeling well today. he is nauseated. he had dry heaves just before i arrived in the room. he is coughing. some sob but not as bad. denies chest pain and abd pain. had a stool yesterday. no hematochezia, no diarrhea. no dysuria - Constitutional Vitals: Temp Pulse Resp BP Pulse Ox 97.7 F 63 16 95/56 97 05/09/17 04:00 05/09/17 04:00 05/09/17 04:00 05/09/17 04:00 05/09/17 04:00 General appearance: Present: A&O X 3, no acute distress, answers questions appropriately - Head Head exam: Present: atraumatic, normocephalic - Neck Neck exam general surgery: Present: supple, trachea midline. Absent: lymphadenopathy - Respiratory Respiratory exam: Present: CTAB - Cardiovascular Cardiovascular exam: Present: irregular rhythm, systolic murmur - GI/Abdominal GI/Abdominal exam: Present: distended (mildly, but he says it is baseline for him), normal bowel sounds, no peritoneal signs. Absent: guarding, rebound, tenderness - Extremities Exam Extremities exam: Present: normal capillary refill, pedal edema (with nyla hose on) - Skin Skin exam: Present: dry, warm. Absent: rash Internal Medicine: Result - Labs CBC & Chem 7: 05/09/17 05:15 05/09/17 05:15 Labs: Short CBC 05/09/17 Range/Units 05:15 WBC 7.8 (4.3-11.1) K/mcL Hgb 8.7 L (12.9-16.9) g/dL Hct 28.5 L (37.5-50.1) % Plt Count 179 (140-400) K/mcL Neutrophils # 6.6 (1.6-8.9) K/mcL BMP 05/09/17 05:15 Sodium 140 Potassium 4.4 Chloride 104 Carbon Dioxide 25 BUN 48 H Creatinine 2.20 H Glucose 107 H Calcium 8.9 Liver Function 05/09/17 Range/Units 05:15 Total Bilirubin 1.3 H (0.2-1.2) mg/dL AST 93 H (5-34) Units/L ALT 82 H (0-55) Units/L Alkaline Phosphatase 85 (38-126) Units/L Albumin 2.4 L (3.5-5.0) g/dL - Impressions Impressions Echocardiogram 05/08/17 07:00 Impressions: LVEF 30%. Moderately dilated left ventricle. Mild concentric left ventricular hypertrophy. Atypical septal motion consistent with paced rhythm. Moderate left ventricular diastolic dysfunction. Mildly dilated right ventricle with normal appearing function. Mild-moderate aortic regurgitation. Moderate-severe mitral regurgitation. Severe tricuspid regurgitation. Severe pulmonary hypertension. Pleural effusion. A device lead was visualized in the right atrium and right ventricle. Left Ventricular Wall Motion: Rest Echo Findings The apex, apical inferior, mid inferior, basal inferior, apical anterior, mid anterior, basal anterior, apical septal, mid inferior septal, basal inferior septal, apical lateral, mid anterior lateral, basal anterior lateral, mid anterior septal, mid inferior lateral, basal anterior septal and basal inferior lateral almanza were hypokinetic. Findings: Study Quality * Technically adequate exam. ECG Findings * Paced rhythm. Left Ventricle * LVEF 30%. * Moderately dilated left ventricle. * Mild concentric left ventricular hypertrophy. * Atypical septal motion consistent with paced rhythm. * Moderate left ventricular diastolic dysfunction. Right Ventricle * Mildly dilated right ventricle with normal appearing function. Left Atrium * Moderately dilated left atrium. Right Atrium * Mildly dilated right atrium. Interatrial Septum * Interatrial septum not well evaluated. Aortic Valve * Aortic valve not well visualized. * Grossly, mildly calcified aortic valve leaflets. * Mild-moderate aortic regurgitation. * No aortic stenosis. Mitral Valve * Mildly thickened mitral valve leaflets. * Mild mitral annular calcification * Moderate-severe mitral regurgitation. * No mitral stenosis. Tricuspid Valve * Normal tricuspid valve structure. * Severe tricuspid regurgitation. * Severe pulmonary hypertension. Pulmonic Valve * Pulmonic valve not well visualized. Aorta * Normally sized aortic root. Pericardium * The pericardium appears normal. IVC * Normal IVC dimensions and inspiratory collapse. Device lead * A device lead was visualized in the right atrium and right ventricle. Pulmonary Artery * Normal visualized portions of the main pulmonary artery. Pleural Effusion * Pleural effusion. - VTE Reasons for not Prescribing Prophylaxis: Not indicated-Anticoagulated or INR therapeutic Documentation of Mechanical Device: Graduated compression elastic hosiery Consult Discharge Plan - Plan Referrals: Tawny Leger CNP [Primary Care Provider] - Prescriptions: Levothyroxine [Synthroid] 75 mcg PO DAILY@0630 #30 tablet
[2017-05-09] MEDS: Levofloxacin 250 MG/50 ML 250 MG/50 ML BAG IVPB SCH (15:53)
[2017-05-10 05:33] LABS: Basophils % 0.4 %; Eosinophils # 0.1 K/mcL (0.0-0.6); Eosinophils % 0.8 %; Hematocrit 27.8 % (37.5-50.1); Hemoglobin 8.5 g/dL (12.9-16.9); Immature Granulocytes % 0.5 % (0-4); Lymphocytes # 0.4 K/mcL (0.6-4.6); Lymphocytes % 5.6 %; Mean Corpuscular HGB Conc 30.6 g/dL (31.6-35.5); Mean Corpuscular Hemoglobin 28.3 pg (28.0-33.3); Mean Corpuscular Volume 92.7 fL (83.0-100.0); Mean Platelet Volume 10.5 fL (9.4-12.4); Monocytes # 0.9 K/mcL (0.0-1.3); Monocytes % 11.5 %; Neutrophils # 6.4 K/mcL (1.6-8.9); Platelet Count 185 K/mcL (140-400); Red Cell Distribution Width 19.1 % (11.5-14.5); Segmented Neutrophils % 81.2 %
[2017-05-10 05:51] LABS: Albumin 2.4 g/dL (3.5-5.0); Albumin/Globulin Ratio 0.7 (1.1-2.2); Bilirubin,Direct 0.8 mg/dL (0.0-0.5); Bilirubin,Indirect 0.7 mg/dL (0.0-1.2); Bilirubin,Total 1.5 mg/dL (0.2-1.2); Globulin 3.3 g/dL (2.4-3.5); Potassium 4.4 mEq/L (3.5-4.5); Total Protein 5.7 g/dL (6.0-8.3)
[2017-05-10] MEDS: Levofloxacin 250 MG/50 ML 250 MG/50 ML BAG IVPB SCH (08:31)
[2017-05-10] MEDS: Furosemide 40 MG TABLET PO SCH ×2 (08:32→16:29)
[2017-05-10] MEDS: Isosorbide MONOnitrate (24 HR) 30 MG TAB.ER.24H PO SCH (08:32)
[2017-05-10] MEDS: Finasteride 5 MG TABLET PO SCH (08:32)
[2017-05-10] MEDS: *HR* Amiodarone 200 MG TABLET PO SCH (08:33)
[2017-05-10] MEDS: Multivit/Ca/Min/Fe/FA 1 TAB TABLET PO SCH (08:33)
[2017-05-10] MEDS: *HR* Rivaroxaban 10 MG TABLET PO SCH (08:33)
[2017-05-10] MEDS: Aspirin Enteric Coated 81 MG Tablet PO SCH (09:26)
--- NOTE | 2017-05-10 11:36 | Internal Med Progress Note ---
Date of Encounter: 05/10/17 Time of Encounter: 08:30 - Assessment and plan (1) Acute congestive heart failure Current Visit: Yes Status: Acute Assessment and plan: History of acute congestive heart failure. His ejection fraction was measured as 30%. He has had good urine output. His weight has decreased, then increased but cannot increase the lasix with renal function and his lower bp. . He walked in the hallway well and had no dyspnea or chest pain or tachycardia. We will plan to continue his Lasix 40mg twice a day, if he has extra edema he will take an extra one. but may need to hold with some of his pressures going low Qualifiers: Congestive heart failure type: systolic Qualified Code(s): I50.21 - Acute systolic (congestive) heart failure (2) Vomiting Current Visit: Yes Status: Acute Assessment and plan: He had an episode of emesis this am. It is not projectile. He has normal bowel sounds. No abdominal tenderness. He had a good bowel movement yesterday. He gets Zofran. ct scan no acute disease Qualifiers: Vomiting type: unspecified Vomiting Intractability: non-intractable Nausea presence: without nausea Qualified Code(s): R11.11 - Vomiting without nausea (3) Cardiomyopathy, ischemic Current Visit: Yes Status: Chronic Assessment and plan: ejection fraction is 30%. This is about what he has had in the past. (4) Chronic anemia Current Visit: Yes Status: Chronic Assessment and plan: Relatively stable. He is due to see GI for upper and lower endoscopies. He does have chronic renal failure contributing to the anemia. (5) Chronic kidney disease (CKD) Current Visit: Yes Status: Chronic Assessment and plan: His creatinine is stable. He sees nephrology at [place]. Qualifiers: Chronic kidney disease stage: stage 3 (moderate) Qualified Code(s): N18.3 - Chronic kidney disease, stage 3 (moderate) (6) Hypertension Current Visit: Yes Status: Chronic Assessment and plan: His blood pressure has been under good control.but did get low this am may need to hold lasix Qualifiers: Hypertension type: essential hypertension Qualified Code(s): I10 - Essential (primary) hypertension (7) Hypothyroidism Current Visit: Yes Status: Chronic Assessment and plan: increased his Synthroid as his TSH is elevated. Qualifiers: Hypothyroidism type: unspecified Qualified Code(s): E03.9 - Hypothyroidism , unspecified (8) Paroxysmal atrial fibrillation Current Visit: Yes Status: Chronic Assessment and plan: He has remained in sinus rhythm the entire visit. 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 could also be due to the chf (12) UTI (urinary tract infection) Current Visit: Yes Status: Acute Assessment and plan: will add levaquin. urine culture negative but urine with nitrite positive Qualifiers: Urinary tract infection type: acute cystitis Hematuria presence: with hematuria Qualified Code(s): N30.01 - Acute cystitis with hematuria - Subjective Interval history: he is not feeling well today. he is nauseated. he has had 2 more episodes of nausea. he is coughing. some sob but not as bad. denies chest pain and abd pain. had a stool 2 days ago. no hematochezia, no diarrhea. no dysuria. ct scan no acute abd - Constitutional Vitals: Temp Pulse Resp BP Pulse Ox 98.6 F 60 16 91/54 98 05/10/17 11:29 05/10/17 11:29 05/10/17 11:29 05/10/17 11:29 05/10/17 11:29 General appearance: Present: A&O X 3, no acute distress, answers questions appropriately - Head Head exam: Present: atraumatic, normocephalic - Neck Neck exam general surgery: Present: supple. Absent: lymphadenopathy - Respiratory Respiratory exam: Present: CTAB - Cardiovascular Cardiovascular exam: Present: RRR, +S1 - GI/Abdominal GI/Abdominal exam: Present: distended (mildly the same as yesterday), normal bowel sounds, soft, no peritoneal signs. Absent: guarding, tenderness - Extremities Exam Extremities exam: Present: warm. Absent: pedal edema - Skin Skin exam: Present: dry, warm Internal Medicine: Result - Labs CBC & Chem 7: 05/10/17 05:05 05/10/17 05:05 Labs: Short CBC 05/10/17 Range/Units 05:05 WBC 7.9 (4.3-11.1) K/mcL Hgb 8.5 L (12.9-16.9) g/dL Hct 27.8 L (37.5-50.1) % Plt Count 185 (140-400) K/mcL Neutrophils # 6.4 (1.6-8.9) K/mcL BMP 05/10/17 05:05 Sodium 137 Potassium 4.4 Chloride 101 Carbon Dioxide 26 BUN 47 H Creatinine 2.24 H Glucose 95 Calcium 9.0 Liver Function 05/10/17 Range/Units 05:05 Total Bilirubin 1.5 H (0.2-1.2) mg/dL Direct Bilirubin 0.8 H (0.0-0.5) mg/dL AST 91 H (5-34) Units/L ALT 78 H (0-55) Units/L Alkaline Phosphatase 86 (38-126) Units/L Albumin 2.4 L (3.5-5.0) g/dL - Impressions Impressions Abdomen/Pelvis CT 05/09/17 12:35 IMPRESSION: 1. Moderate to large bilateral pleural effusions with adjacent airspace disease, probably atelectasis. Correlate with any clinical evidence of pneumonia, especially given the patchy airspace disease in the lingula and right middle lobe. 2. Otherwise negative CT the abdomen pelvis without contrast. D/ / Carl Agarwal MD / Carl Agarwal MD Interpreting Provider: Carl Agarwal MD Chest X-Ray 05/09/17 12:58 IMPRESSION: Bibasilar atelectasis or infiltrates with bilateral pleural effusions, left worse than right. D/ / 05/09/2017 14:45:22 Lotus Zapata MD / Nathalie Valladares Interpreting Provider: Lotus Zapata MD - VTE Reasons for not Prescribing Prophylaxis: Not indicated-Anticoagulated or INR therapeutic Documentation of Mechanical Device: Graduated compression elastic hosiery Consult Discharge Plan - Plan Referrals: Tawny Leger, [employer] [Primary Care Provider] - Prescriptions: Levothyroxine [Synthroid] 75 mcg PO DAILY@629 #30 tablet
[2017-05-10] MEDS: Ondansetron ODT 4 MG TAB.RAPDIS SL PRN (12:03)
[2017-05-10 15:11] LABS: Amylase 60 Units/L (25-125); Lipase 22 Units/L (8-78)
[2017-05-10 19:49] LABS: Hepatitis B Core IgM Nonreactive (Nonreactive); Hepatitis B Surface Antigen Nonreactive (Nonreactive); Hepatitis C Virus Antibody Nonreactive (Nonreactive)
[2017-05-10 20:32] LABS: Hepatitis A Antibody IgM Nonreactive (Nonreactive)
[2017-05-11 05:41] LABS: Basophils % 0.3 %; Eosinophils % 0.1 %; Hematocrit 27.7 % (37.5-50.1); Hemoglobin 8.6 g/dL (12.9-16.9); Immature Granulocytes % 0.1 % (0-4); Lymphocytes # 0.5 K/mcL (0.6-4.6); Lymphocytes % 6.9 %; Mean Corpuscular Hemoglobin 27.9 pg (28.0-33.3); Mean Corpuscular Volume 89.9 fL (83.0-100.0); Mean Platelet Volume 10.2 fL (9.4-12.4); Monocytes # 0.8 K/mcL (0.0-1.3); Monocytes % 10.7 %; Platelet Count 165 K/mcL (140-400); Red Blood Count 3.08 M/mcL (4.19-5.50); Red Cell Distribution Width 18.7 % (11.5-14.5); Segmented Neutrophils % 81.9 %
[2017-05-11 05:59] LABS: Albumin 2.4 g/dL (3.5-5.0); Albumin/Globulin Ratio 0.8 (1.1-2.2); Bilirubin,Direct 0.8 mg/dL (0.0-0.5); Bilirubin,Indirect 0.6 mg/dL (0.0-1.2); Bilirubin,Total 1.4 mg/dL (0.2-1.2); Calcium 8.9 mg/dL (8.6-10.8); Globulin 3.2 g/dL (2.4-3.5); Potassium 4.1 mEq/L (3.5-4.5); Total Protein 5.6 g/dL (6.0-8.3)
[2017-05-11] MEDS: Furosemide 40 MG TABLET PO SCH ×2 (08:42→16:57)
[2017-05-11] MEDS: Multivit/Ca/Min/Fe/FA 1 TAB TABLET PO SCH (08:42)
[2017-05-11] MEDS: *HR* Rivaroxaban 10 MG TABLET PO SCH (08:42)
[2017-05-11] MEDS: *HR* Amiodarone 200 MG TABLET PO SCH (08:42)
[2017-05-11] MEDS: Aspirin Enteric Coated 81 MG Tablet PO SCH (08:43)
[2017-05-11] MEDS: Isosorbide MONOnitrate (24 HR) 30 MG TAB.ER.24H PO SCH (08:43)
[2017-05-11] MEDS: Finasteride 5 MG TABLET PO SCH (08:43)
[2017-05-11] MEDS: Levofloxacin 250 MG/50 ML 250 MG/50 ML BAG IVPB SCH (08:44)
--- NOTE | 2017-05-11 15:17 | Internal Med Progress Note ---
Date of Encounter: 05/11/17 Time of Encounter: 15:15 - Assessment and plan (1) Acute congestive heart failure Current Visit: Yes Status: Acute Assessment and plan: History of acute congestive heart failure. His ejection fraction was measured as 30%. He has had good urine output. His weight has decreased, then increased but cannot increase the lasix with renal function and his lower bp. . had no dyspnea or chest pain or tachycardia. We will plan to continue his Lasix 40mg twice a day, if he has extra edema he will take an extra one. but may need to hold with some of his pressures going low Qualifiers: Congestive heart failure type: systolic Qualified Code(s): I50.21 - Acute systolic (congestive) heart failure (2) Vomiting Current Visit: Yes Status: Acute Assessment and plan: better today Qualifiers: Vomiting type: unspecified Vomiting Intractability: non-intractable Nausea presence: without nausea Qualified Code(s): R11.11 - Vomiting without nausea (3) Cardiomyopathy, ischemic Current Visit: Yes Status: Chronic Assessment and plan: ejection fraction is 30%. This is about what he has had in the past. (4) Chronic anemia Current Visit: Yes Status: Chronic Assessment and plan: Relatively stable. He is due to see GI for upper and lower endoscopies. He does have chronic renal failure contributing to the anemia. (5) Chronic kidney disease (CKD) Current Visit: Yes Status: Chronic Assessment and plan: His creatinine is stable. He sees nephrology at [place]. Qualifiers: Chronic kidney disease stage: stage 3 (moderate) Qualified Code(s): N18.3 - Chronic kidney disease, stage 3 (moderate) (6) Hypertension Current Visit: Yes Status: Chronic Assessment and plan: .but it has been running low am may need to hold lasix Qualifiers: Hypertension type: essential hypertension Qualified Code(s): I10 - Essential (primary) hypertension (7) Hypothyroidism Current Visit: Yes Status: Chronic Assessment and plan: increased his Synthroid as his TSH is elevated. 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 urine culture negative but urine with nitrite positive Qualifiers: Urinary tract infection type: acute cystitis Hematuria presence: with hematuria Qualified Code(s): N30.01 - Acute cystitis with hematuria - Subjective Interval history: he is better today. no nausea. feels weak worried about going home daughter worried about going home. he has gotten weak since admission. yesterday was hard to get 20 ft. . denies chest pain and abd pain. had a stool 2 days ago. no hematochezia, no diarrhea. no stool declines meds for this no dysuria. ct scan no acute abd - Constitutional Vitals: Temp Pulse Resp BP Pulse Ox 98.7 F 66 16 95/49 99 05/11/17 12:00 05/11/17 12:00 05/11/17 12:00 05/11/17 12:00 05/11/17 12:00 General appearance: Present: A&O X 3, no acute distress, answers questions appropriately - Head Head exam: Present: atraumatic, normocephalic - Neck Neck exam general surgery: Present: trachea midline. Absent: lymphadenopathy - Respiratory Respiratory exam: Present: CTAB - Cardiovascular Cardiovascular exam: Present: RRR. Absent: systolic murmur - GI/Abdominal GI/Abdominal exam: Present: distended (but no change), normal bowel sounds, soft , no peritoneal signs. Absent: guarding, tenderness - Extremities Exam Extremities exam: Present: warm. Absent: pedal edema (below the nyla hose) - Skin Skin exam: Present: dry, warm Internal Medicine: Result - Labs CBC & Chem 7: 05/11/17 05:25 05/11/17 05:25 Labs: Short CBC 05/11/17 Range/Units 05:25 WBC 7.4 (4.3-11.1) K/mcL Hgb 8.6 L (12.9-16.9) g/dL Hct 27.7 L (37.5-50.1) % Plt Count 165 (140-400) K/mcL Neutrophils # 6.0 (1.6-8.9) K/mcL BMP 05/11/17 05:25 Sodium 135 L Potassium 4.1 Chloride 99 Carbon Dioxide 25 BUN 52 H Creatinine 2.62 H Glucose 107 H Calcium 8.9 Liver Function 05/11/17 Range/Units 05:25 Total Bilirubin 1.4 H (0.2-1.2) mg/dL Direct Bilirubin 0.8 H (0.0-0.5) mg/dL AST 92 H (5-34) Units/L ALT 78 H (0-55) Units/L Alkaline Phosphatase 88 (38-126) Units/L Albumin 2.4 L (3.5-5.0) g/dL - VTE Reasons for not Prescribing Prophylaxis: Not indicated-Anticoagulated or INR therapeutic Documentation of Mechanical Device: Graduated compression elastic hosiery Consult Discharge Plan - Plan Referrals: Tawny Leger, [facility] [Primary Care Provider] - Prescriptions: Levothyroxine [Synthroid] 75 mcg PO DAILY@629 #30 tablet
[2017-05-11] MEDS: Ondansetron ODT 4 MG TAB.RAPDIS SL PRN (19:59)
[2017-05-12] MEDS: Isosorbide MONOnitrate (24 HR) 30 MG TAB.ER.24H PO SCH (09:11)
[2017-05-12] MEDS: Multivit/Ca/Min/Fe/FA 1 TAB TABLET PO SCH (09:12)
[2017-05-12] MEDS: *HR* Rivaroxaban 10 MG TABLET PO SCH (09:12)
[2017-05-12] MEDS: Finasteride 5 MG TABLET PO SCH (09:12)
[2017-05-12] MEDS: Furosemide 40 MG TABLET PO SCH ×2 (09:12→16:53)
[2017-05-12] MEDS: *HR* Amiodarone 200 MG TABLET PO SCH (09:12)
[2017-05-12] MEDS: Aspirin Enteric Coated 81 MG Tablet PO SCH (09:12)
[2017-05-12] MEDS: Levofloxacin 250 MG/50 ML 250 MG/50 ML BAG IVPB SCH (09:13)
--- NOTE | 2017-05-12 11:25 | Internal Med Progress Note ---
Date of Encounter: 05/12/17 Time of Encounter: 11:23 - Assessment and plan (1) Acute congestive heart failure Current Visit: Yes Status: Acute Assessment and plan: History of acute congestive heart failure. His ejection fraction was measured as 30%. He has had good urine output. His weight has decreased, then increased but cannot increase the lasix with renal function and his lower bp. . had no dyspnea or chest pain or tachycardia. We will plan to continue his Lasix 40mg twice a day, but may need to hold with some of his pressures going low Qualifiers: Congestive heart failure type: systolic Qualified Code(s): I50.21 - Acute systolic (congestive) heart failure (2) Vomiting Current Visit: Yes Status: Acute Assessment and plan: did it again last night will add prilosec. he is set up to see Sabina for endoscopy next month. ct negative except benign renal cyst Qualifiers: Vomiting type: unspecified Vomiting Intractability: non-intractable Nausea presence: without nausea Qualified Code(s): R11.11 - Vomiting without nausea (3) Cardiomyopathy, ischemic Current Visit: Yes Status: Chronic Assessment and plan: ejection fraction is 30%. This is about what he has had in the past. (4) Chronic anemia Current Visit: Yes Status: Chronic Assessment and plan: Relatively stable. He is due to see GI for upper and lower endoscopies. he has an appt with Sabina in May. He does have chronic renal failure contributing to the anemia. (5) Chronic kidney disease (CKD) Current Visit: Yes Status: Chronic Assessment and plan: His creatinine is stable. He sees nephrology at [place]. Qualifiers: Chronic kidney disease stage: stage 3 (moderate) Qualified Code(s): N18.3 - Chronic kidney disease, stage 3 (moderate) (6) Hypertension Current Visit: Yes Status: Chronic Assessment and plan: .but it has been running low am may need to hold lasix, but will continue for now Qualifiers: Hypertension type: essential hypertension Qualified Code(s): I10 - Essential (primary) hypertension (7) Hypothyroidism Current Visit: Yes Status: Chronic Assessment and plan: increased his Synthroid as his TSH is elevated. 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 he and daughter did not feel he would be safe at home. he was struggling to get down the garcia yesterday. his legs were "noodles" last time he did rehab he did so well and both would like to do this again to get him back to his home environment. (11) Elevated LFTs Current Visit: Yes Status: Acute Assessment and plan: have been stable will check hep a b c. could also be due to the chf. discussed with daughter and patient. He has an appointment to see Sabina and will also discuss with him. his ct was negative. the have not gone up or down since admission but are elevated from september at [facility] [address]. (12) UTI (urinary tract infection) Current Visit: Yes Status: Acute Assessment and plan: urine culture negative but urine with nitrite positive. will stop the levaquin now Qualifiers: Urinary tract infection type: acute cystitis Hematuria presence: with hematuria Qualified Code(s): N30.01 - Acute cystitis with hematuria - Subjective Interval history: he had emesis again last night. some nausea. denies chest pain and abd pain.denies palpitation, sob. had a stool several days ago. no hematochezia, no diarrhea. no dysuria. ct scan no acute abd - Constitutional Vitals: Temp Pulse Resp BP Pulse Ox 97.6 F 60 16 94/55 97 05/12/17 09:00 05/12/17 09:00 05/12/17 09:00 05/12/17 09:00 05/12/17 09:00 General appearance: Present: A&O X 3, no acute distress, answers questions appropriately - Head Head exam: Present: atraumatic, normocephalic - Neck Neck exam general surgery: Present: supple, trachea midline - Respiratory Respiratory exam: Present: CTAB - Cardiovascular Cardiovascular exam: Present: RRR, +S1, +S2 - GI/Abdominal GI/Abdominal exam: Present: normal bowel sounds, soft, no peritoneal signs. Absent: guarding, rebound, tenderness - Extremities Exam Extremities exam: Present: pedal edema (below the nyla hose), warm - Skin Skin exam: Present: dry, warm Internal Medicine: Result - Labs CBC & Chem 7: 05/11/17 05:25 05/11/17 05:25 - VTE Reasons for not Prescribing Prophylaxis: Not indicated-Anticoagulated or INR therapeutic Documentation of Mechanical Device: Graduated compression elastic hosiery Consult Discharge Plan - Plan Referrals: Tawny Leger, SULFUR BURNER [Primary Care Provider] - Prescriptions: Levothyroxine [Synthroid] 75 mcg PO DAILY@629 #30 tablet
[2017-05-12] MEDS ORDERED: Lactulose Oral Soln 20 GM/30 ML UDC PO PRN (11:39)
[2017-05-13 05:37] LABS: Basophils % 0.3 %; Eosinophils % 0.1 %; Hemoglobin 8.7 g/dL (12.9-16.9); Immature Granulocytes % 0.3 % (0-4); Lymphocytes # 0.4 K/mcL (0.6-4.6); Lymphocytes % 5.5 %; Mean Corpuscular HGB Conc 31.1 g/dL (31.6-35.5); Mean Platelet Volume 10.7 fL (9.4-12.4); Monocytes # 0.8 K/mcL (0.0-1.3); Monocytes % 11.2 %; Neutrophils # 6.1 K/mcL (1.6-8.9); Platelet Count 175 K/mcL (140-400); Red Blood Count 3.11 M/mcL (4.19-5.50); Red Cell Distribution Width 18.2 % (11.5-14.5); Segmented Neutrophils % 82.6 %
[2017-05-13 05:47] LABS: Albumin 2.3 g/dL (3.5-5.0); Albumin/Globulin Ratio 0.7 (1.1-2.2); Bilirubin,Direct 0.8 mg/dL (0.0-0.5); Bilirubin,Indirect 0.7 mg/dL (0.0-1.2); Bilirubin,Total 1.5 mg/dL (0.2-1.2); Calcium 8.8 mg/dL (8.6-10.8); Globulin 3.2 g/dL (2.4-3.5); Potassium 4.2 mEq/L (3.5-4.5); Total Protein 5.5 g/dL (6.0-8.3)
--- NOTE | 2017-05-13 07:02 | Internal Med Progress Note ---
Date of Encounter: 05/13/17 Time of Encounter: 06:58 - Assessment and plan (1) Acute congestive heart failure Current Visit: Yes Status: Acute Assessment and plan: Clinically his congestive heart failure is under control. His lungs are clear. No dyspnea. Good oxygen saturations while wearing his 24-hour oxygen. No angina or CHF. Continue current medication. Qualifiers: Congestive heart failure type: systolic Qualified Code(s): I50.21 - Acute systolic (congestive) heart failure (2) Cardiomyopathy, ischemic Current Visit: Yes Status: Chronic Assessment and plan: Currently no angina or CHF. Continue same medication. (3) Chronic kidney disease (CKD) Current Visit: Yes Status: Chronic Assessment and plan: Creatinine is stable. Qualifiers: Chronic kidney disease stage: stage 3 (moderate) Qualified Code(s): N18.3 - Chronic kidney disease, stage 3 (moderate) (4) Paroxysmal atrial fibrillation Current Visit: Yes Status: Chronic Assessment and plan: He has remained in normal sinus rhythm the entire hospitalization. He is no longer in on the monitor (5) Hypertension Current Visit: Yes Status: Chronic Assessment and plan: Blood pressure is under good control. Sometimes a bit low. We will continue to monitor. Qualifiers: Hypertension type: essential hypertension Qualified Code(s): I10 - Essential (primary) hypertension (6) Recurrent falls Current Visit: Yes Status: Acute Assessment and plan: he has a history of falling episodes at home. He would benefit from swing bed or full rehabilitation for deconditioning and gait stabilization. (7) Skin abrasion Current Visit: Yes Status: Acute (8) History of CVA (cerebrovascular accident) Current Visit: No Status: Chronic (9) Hypothyroidism Current Visit: Yes Status: Chronic Qualifiers: Hypothyroidism type: unspecified Qualified Code(s): E03.9 - Hypothyroidism , unspecified (10) Chronic anemia Current Visit: Yes Status: Chronic (11) DVT prophylaxis Current Visit: Yes Status: Inactive (12) Vomiting Current Visit: Yes Status: Acute Assessment and plan: He did not vomit yesterday. So far today he is doing well. We will continue to monitor. PPI was started in case he has an occult ulcer or significant reflux triggering vomiting. Qualifiers: Vomiting type: unspecified Vomiting Intractability: non-intractable Nausea presence: without nausea Qualified Code(s): R11.11 - Vomiting without nausea (13) Physical deconditioning Current Visit: Yes Status: Acute Assessment and plan: He is still weak from his recent CHF and hospitalization. He needed one-person assistance and use of the hand rails to even sit up in bed. He would benefit from physical therapy and occupational therapy. Evaluation today with hopes of swing bed or rehab bed for extended stay for therapies to regain his ADLs enough to go home.. (14) Elevated LFTs Current Visit: Yes Status: Acute Assessment and plan: Still has elevated LFTs. Mildly elevated and stable. He has an appointment to see GI soon. CT scan was nonfocal. - Subjective Interval history: Patient states that he feels good today. He has not vomited since sometime on Saturday. He ate well yesterday. It was reported he had a shower and was ambulatory a bit yesterday. He denies any chest pain, palpitations, dyspnea or abdominal pain. He is looking forward to some therapy as he still feels weak. - Constitutional Vitals: Temp Pulse Resp BP Pulse Ox 97.6 F 57 18 114/65 95 05/13/17 03:00 05/13/17 03:00 05/13/17 03:00 05/13/17 03:00 05/13/17 03:00 General appearance: Present: A&O X 3, no acute distress, answers questions appropriately - Respiratory Respiratory exam: Present: CTAB - Cardiovascular Cardiovascular exam: Present: RRR, +S1, +S2, systolic murmur (1/6 systolic murmur) - GI/Abdominal GI/Abdominal exam: Present: normal bowel sounds, soft, no peritoneal signs. Absent: mass, tenderness - Extremities Exam Extremities exam: Absent: calf tenderness, pedal edema (He is wearing his elastic stockings), tenderness Internal Medicine: Result - Labs CBC & Chem 7: 05/13/17 05:00 05/13/17 05:00 Labs: Short CBC 05/13/17 Range/Units 05:00 WBC 7.3 (4.3-11.1) K/mcL Hgb 8.7 L (12.9-16.9) g/dL Hct 28.0 L (37.5-50.1) % Plt Count 175 (140-400) K/mcL Neutrophils # 6.1 (1.6-8.9) K/mcL BMP 05/13/17 05:00 Sodium 133 L Potassium 4.2 Chloride 100 Carbon Dioxide 24 BUN 50 H Creatinine 2.43 H Glucose 95 Calcium 8.8 Liver Function 05/13/17 Range/Units 05:00 Total Bilirubin 1.5 H (0.2-1.2) mg/dL Direct Bilirubin 0.8 H (0.0-0.5) mg/dL AST 94 H (5-34) Units/L ALT 77 H (0-55) Units/L Alkaline Phosphatase 88 (38-126) Units/L Albumin 2.3 L (3.5-5.0) g/dL Labs have been reviewed and relatively stable. He has chronic anemia and count slightly better. Mild hyponatremia. Renal function is poor but stable. Liver functions are still elevated mildly but stable - VTE Reasons for not Prescribing Prophylaxis: Not indicated-Anticoagulated or INR therapeutic Documentation of Mechanical Device: Graduated compression elastic hosiery Consult Discharge Plan - Plan Referrals: Tawny Leger, [employer] [Primary Care Provider] - Prescriptions: Levothyroxine [Synthroid] 75 mcg PO DAILY@629 #30 tablet
[2017-05-13 07:04] VITALS: BP 103/56
[2017-05-13] MEDS: Furosemide 40 MG TABLET PO SCH (08:05)
[2017-05-13] MEDS: *HR* Amiodarone 200 MG TABLET PO SCH (08:05)
[2017-05-13] MEDS: Multivit/Ca/Min/Fe/FA 1 TAB TABLET PO SCH (08:05)
[2017-05-13] MEDS: Finasteride 5 MG TABLET PO SCH (08:06)
[2017-05-13] MEDS: Aspirin Enteric Coated 81 MG Tablet PO SCH (08:06)
[2017-05-13] MEDS: Isosorbide MONOnitrate (24 HR) 30 MG TAB.ER.24H PO SCH (08:06)
[2017-05-13] MEDS: *HR* Rivaroxaban 10 MG TABLET PO SCH (08:09)
== END 2017-05-13 09:01 | disposition other institution (70) | DRG 291 ==
LOC: EMEROOGRE 17:19 → INPGRE 17:19
PROVIDERS: ADMIT Family Medicine; ATTEND Family Medicine

== ENCOUNTER 2017-05-13 08:57 | Inpatient (IN) ==
[2017-05-13] MEDS ORDERED: Nitroglycerin 0.4 MG TAB.SUBL SL PRN (10:11)
[2017-05-13] MEDS ORDERED: Ondansetron ODT 4 MG TAB.RAPDIS SL PRN (10:13)
[2017-05-13] MEDS: Furosemide 40 MG TABLET PO SCH (17:18)
[2017-05-14] MEDS: Finasteride 5 MG TABLET PO SCH (08:51)
[2017-05-14] MEDS: Furosemide 40 MG TABLET PO SCH ×2 (08:51→16:18)
[2017-05-14] MEDS: Isosorbide MONOnitrate (24 HR) 30 MG TAB.ER.24H PO SCH (08:51)
[2017-05-14] MEDS: Aspirin Enteric Coated 81 MG Tablet PO SCH (08:52)
[2017-05-14] MEDS: *HR* Amiodarone 200 MG TABLET PO SCH (08:52)
[2017-05-14] MEDS: Multivit/Ca/Min/Fe/FA 1 TAB TABLET PO SCH (08:52)
--- NOTE | 2017-05-14 15:09 | Internal Med Progress Note ---
Date of Encounter: 05/16/17 Time of Encounter: 15:04 - Assessment and plan (1) Physical deconditioning Current Visit: Yes Status: Acute Assessment and plan: History of physical deconditioning. He is receiving PT and OT. He is showing improvement. He is participating with therapies. Continue the same for now. (2) History of CVA (cerebrovascular accident) Current Visit: No Status: Chronic Assessment and plan: History of previous CVA and gait or melena. He uses a walker. He is receiving PT and OT because of being deconditioned from his hospital stay. No recurrence of CVA noted. (3) Paroxysmal atrial fibrillation Current Visit: No Status: Chronic Assessment and plan: History of paroxysmal atrial fibrillation. He has now been in sinus rhythm the entire hospitalization. He is anticoagulated. (4) Chronic kidney disease (CKD) Current Visit: No Status: Chronic Assessment and plan: History chronic kidney disease and stable. He follows up with nephrology at [place] Qualifiers: Chronic kidney disease stage: stage 3 (moderate) Qualified Code(s): N18.3 - Chronic kidney disease, stage 3 (moderate) (5) Hx of congestive heart failure Current Visit: No Status: Chronic Assessment and plan: He had a recent congestive heart failure. He has known ischemic cardiac myopathy. Good saturations. Sinus rhythm. Lungs are clear. Denies dyspnea. Continue same medication. (6) Cardiomyopathy, ischemic Current Visit: No Status: Chronic Assessment and plan: History of chronic ischemic cardiomyopathy. Recent ejection fraction 30%. Continue same medications. No CHF or angina noted. (7) Hypertension Current Visit: No Status: Chronic Assessment and plan: Long-standing history of hypertension and now controlled. Blood pressures a bit on the low side and will follow. Qualifiers: Hypertension type: essential hypertension Qualified Code(s): I10 - Essential (primary) hypertension (8) Chronic anemia Current Visit: No Status: Chronic Assessment and plan: History chronic anemia and relatively stable. He does have a history of anemia and has GI consultation planned with Dr. Muhammad (9) Vomiting Current Visit: No Status: Acute Assessment and plan: He had vomiting starting last Saturday through Saturday. He has had no vomiting for past 3 days. He is eating well. Denies any nausea. Qualifiers: Vomiting type: unspecified Vomiting Intractability: non-intractable Nausea presence: without nausea Qualified Code(s): R11.11 - Vomiting without nausea (10) Elevated LFTs Current Visit: No Status: Acute Assessment and plan: Mildly elevated LFTs. He has appointment to see GI in a few weeks. Workup so far is negative. 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 We will try frequent toileting. Continue his current medications. - Subjective Interval history: Patient thinks he is getting stronger and improving. He denies any cardiac type chest pain. No palpitations. No dyspnea. He is been eating well. He has had no nausea or vomiting past 3 days. He has not had a bowel movement for about the same time as well. He still has frequent urination and incontinence if he cannot get his pants down in time to use the urinal. Urine culture was negative. Nurses report that he has been ambulating in the hallway. Oxygen saturations are good. No cardiac symptoms with this. - Constitutional Vitals: Temp Pulse Resp BP Pulse Ox 98.1 F 58 18 100/58 99 05/14/17 07:47 05/14/17 07:47 05/14/17 04:00 05/14/17 07:47 05/14/17 07:47 General appearance: Present: A&O X 3, no acute distress, answers questions appropriately - Respiratory Respiratory exam: Present: CTAB - Cardiovascular Cardiovascular exam: Present: RRR, +S1, +S2, systolic murmur (2/6 systolic murmur) - GI/Abdominal GI/Abdominal exam: Present: normal bowel sounds. Absent: mass, tenderness - Extremities Exam Additional comments: He has elastic stockings on lower extremities. Still has some mild pitting edema on his dorsal feet. - Skin Additional comments: The eschar on the left knee area has fallen off and healing appropriately. Small ulcer on the left fifth metatarsal is now scabbing over. He states he has a lesion in the buttock areas that is now bandaged. I do not see that today. Internal Medicine: Result - Labs CBC & Chem 7: 05/16/17 05:00 05/16/17 05:00 - VTE Documentation of Mechanical Device: Graduated compression elastic hosiery Consult Discharge Plan - Plan Referrals: Dre Maldonado MD [Primary Care Provider] -
[2017-05-14] MEDS: *HR* Rivaroxaban 10 MG TABLET PO SCH (16:18)
[2017-05-15] MEDS: Furosemide 40 MG TABLET PO SCH ×2 (08:22→17:39)
[2017-05-15] MEDS: Aspirin Enteric Coated 81 MG Tablet PO SCH (08:22)
[2017-05-15] MEDS: *HR* Amiodarone 200 MG TABLET PO SCH (08:22)
[2017-05-15] MEDS: Isosorbide MONOnitrate (24 HR) 30 MG TAB.ER.24H PO SCH (08:23)
[2017-05-15] MEDS: Finasteride 5 MG TABLET PO SCH (08:23)
[2017-05-15] MEDS: Multivit/Ca/Min/Fe/FA 1 TAB TABLET PO SCH (08:23)
[2017-05-15] MEDS ORDERED: Bisacodyl 10 MG RECTAL SUPPOSITORY RC ONE (10:00)
--- NOTE | 2017-05-15 10:01 | Internal Med Progress Note ---
Date of Encounter: 05/16/17 Time of Encounter: 09:39 - Assessment and plan (1) Physical deconditioning Current Visit: Yes Status: Acute Assessment and plan: He still is weak and needs assistance sitting up as well as ambulating. He will continue with his therapies. (2) History of CVA (cerebrovascular accident) Current Visit: No Status: Chronic Assessment and plan: No new unilateral focal deficit or recurrence of CVA. (3) Paroxysmal atrial fibrillation Current Visit: No Status: Chronic Assessment and plan: Regular rate and rhythm and presumed in sinus rhythm. No atrial fibrillation documented during this hospital stay. He remains anticoagulated. (4) Chronic kidney disease (CKD) Current Visit: No Status: Chronic Assessment and plan: His creatinine has been stable. We will recheck tomorrow. Qualifiers: Chronic kidney disease stage: stage 3 (moderate) Qualified Code(s): N18.3 - Chronic kidney disease, stage 3 (moderate) (5) Hx of congestive heart failure Current Visit: No Status: Chronic Assessment and plan: Congestive heart failure appears to be cleared. No respiratory or cardiac symptoms. (6) Cardiomyopathy, ischemic Current Visit: No Status: Chronic (7) Hypertension Current Visit: No Status: Chronic Assessment and plan: Blood pressure is under good control. Qualifiers: Hypertension type: essential hypertension Qualified Code(s): I10 - Essential (primary) hypertension (8) Chronic anemia Current Visit: No Status: Chronic Assessment and plan: He is due for his Aranes shot on Saturday as per conversation with nurse navigator. He gets it every other week. (9) Vomiting Current Visit: No Status: Acute Assessment and plan: He had no vomiting for 3 days. He vomited last evening after supper. I found out today that his Prilosec order do not transfer into the swing bed orders. That will be restarted today. Qualifiers: Vomiting type: unspecified Vomiting Intractability: non-intractable Nausea presence: without nausea Qualified Code(s): R11.11 - Vomiting without nausea (10) Elevated LFTs Current Visit: No Status: Acute (11) Constipation Current Visit: Yes Status: Acute Assessment and plan: One of his biggest complaints is constipation. He wants his stool softener increased to twice a day as he does at home with his iron tablet. Lactulose order did not get transferred into the swing bed. This will be reordered Will try Dulcolax suppository 1 now. Qualifiers: Constipation type: unspecified constipation type Qualified Code(s): K59.00 - Constipation, unspecified (12) BPH w urinary obs/LUTS Current Visit: Yes Status: Chronic Assessment and plan: Continues to have urgency and incontinence. We are trying frequent toileting every 2 hours. He is on finasteride and Flomax. He was seen by urology in the past. This is his baseline. - Subjective Interval history: His biggest complaint today is that he has not had a bowel movement. He wants his stool softener twice a day when he takes his iron tablet. He vomited once last evening after supper. He denies any abdominal pain or any warning that it is going to occur. (I found out today that he has not been getting his Prilosec or his lactulose). He denies a cardiac type chest pain, palpitations, dyspnea, abdominal pain. He is eager to continue his therapies as long as his stomach is not upset and his bowels begin to move. - Constitutional Vitals: Temp Pulse Resp BP Pulse Ox 97.6 F 76 16 119/74 98 05/15/17 08:00 05/15/17 08:00 05/15/17 08:00 05/15/17 08:00 05/15/17 08:00 General appearance: Present: A&O X 3, no acute distress, answers questions appropriately - Respiratory Respiratory exam: Present: CTAB - Cardiovascular Cardiovascular exam: Present: RRR, +S1, +S2, systolic murmur (2/6 systolic murmur) - GI/Abdominal GI/Abdominal exam: Present: normal bowel sounds, soft, no peritoneal signs. Absent: mass, tenderness - Extremities Exam Extremities exam: Absent: calf tenderness, tenderness Internal Medicine: Result - Labs CBC & Chem 7: 05/16/17 05:00 05/16/17 05:00 - VTE Documentation of Mechanical Device: Graduated compression elastic hosiery Consult Discharge Plan - Plan Referrals: Dre Maldonado MD [Primary Care Provider] -
[2017-05-15] MEDS: Lactulose Oral Soln 20 GM/30 ML UDC PO SCH ×2 (11:32→21:42)
[2017-05-15] MEDS: *HR* Rivaroxaban 10 MG TABLET PO SCH (17:39)
[2017-05-16 05:46] LABS: Basophils % 0.5 %; Eosinophils # 0.1 K/mcL (0.0-0.6); Eosinophils % 0.8 %; Hematocrit 27.2 % (37.5-50.1); Hemoglobin 8.6 g/dL (12.9-16.9); Immature Granulocytes % 0.4 % (0-4); Lymphocytes # 0.4 K/mcL (0.6-4.6); Mean Corpuscular HGB Conc 31.6 g/dL (31.6-35.5); Mean Corpuscular Volume 88.6 fL (83.0-100.0); Mean Platelet Volume 11.4 fL (9.4-12.4); Monocytes % 11.6 %; Neutrophils # 6.9 K/mcL (1.6-8.9); Platelet Count 193 K/mcL (140-400); Red Blood Count 3.07 M/mcL (4.19-5.50); Red Cell Distribution Width 18.1 % (11.5-14.5); Segmented Neutrophils % 81.7 %
[2017-05-16 06:04] LABS: Albumin 2.3 g/dL (3.5-5.0); Albumin/Globulin Ratio 0.7 (1.1-2.2); Bilirubin,Direct 0.9 mg/dL (0.0-0.5); Bilirubin,Indirect 0.8 mg/dL (0.0-1.2); Bilirubin,Total 1.7 mg/dL (0.2-1.2); Globulin 3.1 g/dL (2.4-3.5); Total Protein 5.4 g/dL (6.0-8.3)
[2017-05-16] MEDS: Multivit/Ca/Min/Fe/FA 1 TAB TABLET PO SCH (08:43)
[2017-05-16] MEDS: Finasteride 5 MG TABLET PO SCH (08:44)
[2017-05-16] MEDS: Lactulose Oral Soln 20 GM/30 ML UDC PO SCH ×2 (08:44→23:43)
[2017-05-16] MEDS: Furosemide 40 MG TABLET PO SCH ×2 (08:44→17:23)
[2017-05-16] MEDS: *HR* Amiodarone 200 MG TABLET PO SCH (08:44)
[2017-05-16] MEDS: Aspirin Enteric Coated 81 MG Tablet PO SCH (08:44)
[2017-05-16] MEDS: Isosorbide MONOnitrate (24 HR) 30 MG TAB.ER.24H PO SCH (08:44)
--- NOTE | 2017-05-16 13:26 | Internal Med Progress Note ---
Date of Encounter: 05/16/17 Time of Encounter: 13:11 - Assessment and plan (1) Physical deconditioning Current Visit: Yes Status: Acute Assessment and plan: He is still having troubles with gait, easy fatigability, fall risk etc. He continues with PT and OT. (2) History of CVA (cerebrovascular accident) Current Visit: No Status: Chronic Assessment and plan: Previous CVA with gait abnormality. No recurrence of CVA. (3) Paroxysmal atrial fibrillation Current Visit: No Status: Chronic Assessment and plan: Patient remains in sinus rhythm. (4) Chronic kidney disease (CKD) Current Visit: No Status: Chronic Assessment and plan: Renal status is actually improved. Qualifiers: Chronic kidney disease stage: stage 3 (moderate) Qualified Code(s): N18.3 - Chronic kidney disease, stage 3 (moderate) (5) Hx of congestive heart failure Current Visit: No Status: Chronic Assessment and plan: Lungs are clear. No signs of congestive heart failure present time. (6) Cardiomyopathy, ischemic Current Visit: No Status: Chronic Assessment and plan: No CHF or angina. (7) Hypertension Current Visit: No Status: Chronic Assessment and plan: Long-standing history of hypertension, now his blood pressures are in the low side for the past day or so in the 90s systolic. Not symptomatic. We will monitor. May need to cut back his meds. Qualifiers: Hypertension type: essential hypertension Qualified Code(s): I10 - Essential (primary) hypertension (8) Chronic anemia Current Visit: No Status: Chronic Assessment and plan: Hemoglobin is stable. We will start back his iron that he takes at home according to the cardiology consult note in his office records. (9) Vomiting Current Visit: No Status: Acute Assessment and plan: The vomiting is now gone. It seems as long as he gets his PPI his vomiting is under control. Qualifiers: Vomiting type: unspecified Vomiting Intractability: non-intractable Nausea presence: without nausea Qualified Code(s): R11.11 - Vomiting without nausea (10) Elevated LFTs Current Visit: No Status: Acute Assessment and plan: Mildly elevated LFTs. Minimally elevated from baseline. Has GI consultation planned. No particular symptoms with this. Workup so far is negative. 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 Urgency and incontinence continues. We have been trying frequent toileting. - Subjective Interval history: Patient thinks that he feels much better today as he had a bowel movement yesterday and today. No nausea or vomiting. He still having troubles with urinary incontinence. He states the staff cannot get to him in time when he has to urinate. The urge comes on suddenly. This occurs at home as well. He has already seen urology tried numerous medications. Patient denies chest pain, palpitations, irregular heartbeat, or abdominal pain. - Constitutional Vitals: Temp Pulse Resp BP Pulse Ox 98.1 F 58 16 97/61 92 05/16/17 11:30 05/16/17 11:30 05/16/17 11:30 05/16/17 11:30 05/16/17 11:30 General appearance: Present: A&O X 3, no acute distress, answers questions appropriately - Respiratory Respiratory exam: Present: CTAB - Cardiovascular Cardiovascular exam: Present: RRR, +S1, +S2, systolic murmur (2/6 systolic murmur) - GI/Abdominal GI/Abdominal exam: Present: soft. Absent: tenderness - Extremities Exam Additional comments: He has elastic stockings on. No significant edema. No Tenderness. Internal Medicine: Result - Labs CBC & Chem 7: 05/16/17 05:00 05/16/17 05:00 Labs: Short CBC 05/16/17 Range/Units 05:00 WBC 8.5 (4.3-11.1) K/mcL Hgb 8.6 L (12.9-16.9) g/dL Hct 27.2 L (37.5-50.1) % Plt Count 193 (140-400) K/mcL Neutrophils # 6.9 (1.6-8.9) K/mcL BMP 05/16/17 05:00 Sodium 135 L Potassium 4.0 Chloride 100 Carbon Dioxide 28 BUN 51 H Creatinine 2.10 H Glucose 94 Calcium 9.0 Liver Function 05/16/17 Range/Units 05:00 Total Bilirubin 1.7 H (0.2-1.2) mg/dL Direct Bilirubin 0.9 H (0.0-0.5) mg/dL AST 138 H (5-34) Units/L ALT 90 H (0-55) Units/L Alkaline Phosphatase 91 (38-126) Units/L Albumin 2.3 L (3.5-5.0) g/dL Labs have been reviewed. Hemoglobin stable at 8.6. Creatinine and GFR actually improved from baseline. Minimally elevated liver functions have worsened a bit. - VTE Documentation of Mechanical Device: Graduated compression elastic hosiery Consult Discharge Plan - Plan Referrals: Dre Maldonado MD [Primary Care Provider] -
[2017-05-16] MEDS: *HR* Rivaroxaban 10 MG TABLET PO SCH (17:23)
--- NOTE | 2017-05-17 08:02 | Internal Med Progress Note ---
Date of Encounter: 05/17/17 Time of Encounter: 07:58 - Assessment and plan (1) Physical deconditioning Current Visit: Yes Status: Acute Assessment and plan: He continues to require PT and OT for deconditioning. The goal is for him to go home soon. (2) History of CVA (cerebrovascular accident) Current Visit: No Status: Chronic Assessment and plan: Previous CVA and gait abnormality. No recurrence of CVA. Continue with his therapies. (3) Paroxysmal atrial fibrillation Current Visit: No Status: Chronic Assessment and plan: History of paroxysmal atrial fibrillation. He has been in a regular rhythm since admission. He is no longer on the monitor. No history of palpitations or chest pain. (4) Chronic kidney disease (CKD) Current Visit: No Status: Chronic Assessment and plan: Chronic kidney disease, creatinine is actually improved. His machine pecan picker has recommended continuation of his Aranesp and his dose should be delivered tomorrow for us to give (usually is delivered at home and administered) Qualifiers: Chronic kidney disease stage: stage 3 (moderate) Qualified Code(s): N18.3 - Chronic kidney disease, stage 3 (moderate) (5) Hx of congestive heart failure Current Visit: No Status: Chronic Assessment and plan: History of congestive heart failure, now clear and not having any chest pain or dyspnea (6) Cardiomyopathy, ischemic Current Visit: No Status: Chronic Assessment and plan: History of ischemic cardiomyopathy and latest echo showed depressed with 30% ejection fraction. No angina or CHF currently. (7) Hypertension Current Visit: No Status: Chronic Assessment and plan: He has a history of hypertension. His blood pressures lately have been in the 90s systolic. Not particularly symptomatic. Will follow. Qualifiers: Hypertension type: essential hypertension Qualified Code(s): I10 - Essential (primary) hypertension (8) Chronic anemia Current Visit: No Status: Chronic Assessment and plan: His chronic anemia. This may be from chronic kidney disease but also possible GI etiology. He has appointment on Saturday to see Dr. Muhammad consultation. Depending on how he is doing and may call Dr. Muhammad and discussed the case and may save a trip to [place]. In any case he will likely need upper and lower endoscopy when stable. His machine pecan picker wants to continue the Aranesp and a dose is being delivered to the hospital for us to give. (9) Vomiting Current Visit: No Status: Acute Assessment and plan: His vomiting apparently is now gone. He seems to do better with his PPI. No abdominal complaints currently. Appetite has been good. He had mild elevated liver functions. CT was nonfocal. He has an appointment to see Dr. Muhammad Qualifiers: Vomiting type: unspecified Vomiting Intractability: non-intractable Nausea presence: without nausea Qualified Code(s): R11.11 - Vomiting without nausea (10) Elevated LFTs Current Visit: No Status: Acute Assessment and plan: Mildly elevated liver functions of unknown etiology. Hepatitis testing was negative. CT scan was nonfocal. He has an appoint see Dr. Muhammad for evaluation. 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 He has some urinary retention of 200 mL or so. We are trying frequent toileting. He states this is his usual course at home as well - Subjective Interval history: Patient thinks is getting better. He was able to stand 10 minutes at a table playing a game. He was using the parallel bars today. He is happy that they are starting to work on his lower extremities. He denies any chest pain, palpitations, dyspnea. No abdominal complaints. No vomiting today. He is getting tired of the food though. He would like to put salt on the green beans. - Constitutional Vitals: Temp Pulse Resp BP Pulse Ox 97.9 F 60 16 95/60 95 05/17/17 07:42 05/17/17 07:42 05/17/17 07:42 05/17/17 07:42 05/17/17 07:42 General appearance: Present: A&O X 3, no acute distress, answers questions appropriately - Respiratory Respiratory exam: Present: CTAB. Absent: respiratory distress - Cardiovascular Cardiovascular exam: Present: RRR, +S1, +S2, systolic murmur (1 to 2/6 systolic murmur) - GI/Abdominal GI/Abdominal exam: Present: soft. Absent: tenderness - Extremities Exam Extremities exam: Absent: calf tenderness Additional comments: He has his elastic stockings on. He has small amount of edema. Internal Medicine: Result - Labs CBC & Chem 7: 05/16/17 05:00 05/16/17 05:00 Labs: BMP 05/16/17 05:00 Sodium 135 L Potassium 4.0 Chloride 100 Carbon Dioxide 28 BUN 51 H Creatinine 2.10 H Glucose 94 Calcium 9.0 Liver Function 05/16/17 Range/Units 05:00 Total Bilirubin 1.7 H (0.2-1.2) mg/dL Direct Bilirubin 0.9 H (0.0-0.5) mg/dL AST 138 H (5-34) Units/L ALT 90 H (0-55) Units/L Alkaline Phosphatase 91 (38-126) Units/L Albumin 2.3 L (3.5-5.0) g/dL - VTE Documentation of Mechanical Device: Graduated compression elastic hosiery Consult Discharge Plan - Plan Referrals: Dre Maldonado MD [Primary Care Provider] -
[2017-05-17] MEDS: Finasteride 5 MG TABLET PO SCH (09:01)
[2017-05-17] MEDS: Multivit/Ca/Min/Fe/FA 1 TAB TABLET PO SCH (09:02)
[2017-05-17] MEDS: *HR* Amiodarone 200 MG TABLET PO SCH (09:02)
[2017-05-17] MEDS: Lactulose Oral Soln 20 GM/30 ML UDC PO SCH ×2 (09:02→20:24)
[2017-05-17] MEDS: Isosorbide MONOnitrate (24 HR) 30 MG TAB.ER.24H PO SCH (09:02)
[2017-05-17] MEDS: Furosemide 40 MG TABLET PO SCH ×2 (09:02→16:44)
[2017-05-17] MEDS: Aspirin Enteric Coated 81 MG Tablet PO SCH (09:02)
[2017-05-17] MEDS: *HR* Rivaroxaban 10 MG TABLET PO SCH (16:44)
[2017-05-18] MEDS: Isosorbide MONOnitrate (24 HR) 30 MG TAB.ER.24H PO SCH (08:26)
[2017-05-18] MEDS: Lactulose Oral Soln 20 GM/30 ML UDC PO SCH ×3 (08:26→22:16)
[2017-05-18] MEDS: Aspirin Enteric Coated 81 MG Tablet PO SCH (08:27)
[2017-05-18] MEDS: Furosemide 40 MG TABLET PO SCH ×2 (08:27→17:41)
[2017-05-18] MEDS: *HR* Amiodarone 200 MG TABLET PO SCH (08:27)
[2017-05-18] MEDS: Multivit/Ca/Min/Fe/FA 1 TAB TABLET PO SCH (08:27)
[2017-05-18] MEDS: Finasteride 5 MG TABLET PO SCH (08:27)
--- NOTE | 2017-05-18 10:17 | Internal Med Progress Note ---
Date of Encounter: 05/18/17 Time of Encounter: 10:00 - Assessment and plan (1) History of CVA (cerebrovascular accident) Current Visit: No Status: Chronic Assessment and plan: He continues with therapy. We'll see if we get some of his lower extremity edema off which he feels will help his therapy. (2) Abnormality of gait following cerebrovascular accident (CVA) Current Visit: No Status: Acute Assessment and plan: As above. He's working with the therapist today. (3) Chronic kidney disease (CKD) Current Visit: No Status: Chronic Assessment and plan: Stable. This is clearly contributing to his anemia and fluid retention. Qualifiers: Chronic kidney disease stage: stage 3 (moderate) Qualified Code(s): N18.3 - Chronic kidney disease, stage 3 (moderate) (4) Acute congestive heart failure Current Visit: No Status: Acute Assessment and plan: He has increased fluid findings on exam of the lower extremities and lungs. I' ll give him a single dose of Lasix today. Qualifiers: Congestive heart failure type: systolic Qualified Code(s): I50.21 - Acute systolic (congestive) heart failure (5) Chronic anemia Current Visit: No Status: Chronic Assessment and plan: His Aranesp was delivered to the hospital today. I scoured his records inpatient and outpatient and unfortunately I can't find a dose for that to give him. I left a phone message with his daughter Nathalie Dorado at [phone] and see if she could tell us the dosing. I don't see any urgency to give it to him right today. (6) Physical deconditioning Current Visit: Yes Status: Acute Assessment and plan: He was making good progress yesterday. We will see if he does better following some diuresis. - Time Spent With Patient Greater than 35 minutes - Subjective Interval history: I saw and examined the patient today. #DECONDITIONING he tells me doesn't feel quite as strong today as he has been. He feels he did better yesterday. He feels he has a lot more edema in his lower extremities and that's holding him back. #ATRIAL FIBRILLATION he denies palpitations or chest discomfort. #CHF he denies shortness of breath. He has a history of ischemic cardiomyopathy. #GI his emesis has not been a problem. He says he is eating okay. This is an improvement over the last few days. This therapist is present today and she felt he had some edema OF the low back posteriorly. - Constitutional Vitals: Temp Pulse Resp BP Pulse Ox 98.1 F 60 15 102/62 99 05/18/17 07:00 05/18/17 07:00 05/18/17 07:00 05/18/17 07:00 05/18/17 07:00 General appearance: Present: A&O X 3, pleasant, no acute distress, answers questions appropriately - Respiratory Respiratory exam: Present: decreased breath sounds, rales (He has definite rales at the bases bilaterally with some decreased breath sounds here. Overall he is moving air comfortably.). Absent: accessory muscle use, rhonchi, wheezes - Cardiovascular Cardiovascular exam: Present: RRR, +S1, +S2. Absent: diastolic murmur, gallop, rubs, systolic murmur - GI/Abdominal GI/Abdominal exam: Present: soft, no peritoneal signs. Absent: distended, tenderness - Extremities Exam Extremities exam: Present: pedal edema (He has prominently pitting lower extremity edema up to the knees bilaterally. I don't see any edema in his low back of her upper buttocks.), warm. Absent: calf tenderness, cyanotic - Neurological Exam Neurological exam: Present: oriented X3. Absent: pronater drift, facial droop, speech deficit Internal Medicine: Result - Labs CBC & Chem 7: 05/16/17 05:00 05/16/17 05:00 - VTE Documentation of Mechanical Device: Graduated compression elastic hosiery Consult Discharge Plan - Plan Referrals: Dre Maldonado MD [Primary Care Provider] -
[2017-05-18] MEDS ORDERED: Furosemide 40 MG/4 ML VIAL IVP ONE (13:44)
[2017-05-18] MEDS: *HR* Rivaroxaban 10 MG TABLET PO SCH (17:41)
[2017-05-18 19:40] LABS: Bilirubin,Urine Negative (Negative); Blood,Urine Large (Negative); Clarity,Urine Slightly Cloudy (Clear); Color,Urine Yellow (Yellow); Glucose,Urine (UA) Normal (Normal); Ketones,Urine Negative (Negative); Leukocyte Esterase,Urine Small (Negative); Nitrite,Urine Positive (Negative); Protein,Urine 30 mg/dL (Neg-Trace); Specific Gravity,Urine 1.015 (1.010-1.025); Urobilinogen,Urine Normal (Normal)
[2017-05-18 19:47] LABS: Bacteria,Urine Many per hpf (None-Few); RBC,Urine TNTC per hpf (0-3); Squamous Epithelial Cell,Urine Moderate per lpf (None-Few)
[2017-05-19] MEDS: Lactulose Oral Soln 20 GM/30 ML UDC PO SCH ×2 (09:39→22:31)
[2017-05-19] MEDS: Furosemide 40 MG TABLET PO SCH ×2 (09:39→17:25)
[2017-05-19] MEDS: Finasteride 5 MG TABLET PO SCH (09:39)
[2017-05-19] MEDS: Multivit/Ca/Min/Fe/FA 1 TAB TABLET PO SCH (09:39)
[2017-05-19] MEDS: Aspirin Enteric Coated 81 MG Tablet PO SCH (09:39)
[2017-05-19] MEDS: Isosorbide MONOnitrate (24 HR) 30 MG TAB.ER.24H PO SCH (09:39)
[2017-05-19] MEDS: *HR* Amiodarone 200 MG TABLET PO SCH (09:39)
--- NOTE | 2017-05-19 12:03 | Internal Med Progress Note ---
Date of Encounter: 05/19/17 Time of Encounter: 11:55 - Assessment and plan (1) History of CVA (cerebrovascular accident) Current Visit: No Status: Chronic Assessment and plan: Therapy progress as above. We will continue as at present. He feels he'll do better with his walking with the fluid off. (2) Abnormality of gait following cerebrovascular accident (CVA) Current Visit: No Status: Acute Assessment and plan: Continue with therapy. (3) Chronic kidney disease (CKD) Current Visit: No Status: Chronic Assessment and plan: I'll check labs in the morning to follow his renal function. Qualifiers: Chronic kidney disease stage: stage 3 (moderate) Qualified Code(s): N18.3 - Chronic kidney disease, stage 3 (moderate) (4) Acute congestive heart failure Current Visit: No Status: Acute Assessment and plan: His exam is somewhat improved. I will increase his oral Lasix dose. Qualifiers: Congestive heart failure type: systolic Qualified Code(s): I50.21 - Acute systolic (congestive) heart failure (5) Chronic anemia Current Visit: No Status: Chronic Assessment and plan: It appears she is having a very small amount of urethral bleeding. I'll continue Xarelto for now. I'll check CBC tomorrow. (6) Physical deconditioning Current Visit: Yes Status: Acute Assessment and plan: He continues with therapy. He has a positive attitude and demonstrates to me that actively engaged in therapy and motivated to get better. (7) Hematuria Current Visit: Yes Status: Acute Assessment and plan: Urine culture is pending. Qualifiers: Hematuria type: gross Qualified Code(s): R31.0 - Gross hematuria - Time Spent With Patient Greater than 35 minutes - Subjective Interval history: I saw and examined the patient today. #DECONDITIONING patient tells me that he did OK iwth his upper extremity therapy yesterday but not his walking. He feels his legs are better today and he demonstrates to me that he can move them. He feels he's lost some fluid in his legs since yesterday but still has some edema of his inner thighs and below the knees. #ATRIAL FIBRILLATION no palpitations or chest discomfort. #CHF he didn't particularly notice that he urinated more yesterday with the single dose of IV Lasix. #GI no problems. #BLOOD FROM URETHRA he is passing some small blood clots from his urethra yesterday and again this morning. Thinks he may have sustained an abrasion to the area when he scraped the end of his penis against his urinal. I spoke to his nurse and they did not see any evidence of trauma yesterday. He denies dysuria or frequency or urinary urgency. He says he is never had this before. - Constitutional Vitals: Temp Pulse Resp BP Pulse Ox 97.9 F 60 16 94/55 94 05/19/17 11:00 05/19/17 11:00 05/19/17 11:05/19/17 11:00 05/19/17 11:00 General appearance: Present: A&O X 3, pleasant, no acute distress, answers questions appropriately - Respiratory Respiratory exam: Present: rales, rhonchi, wheezes (He has less rales at the bases than yesterday. He is moving air comfortably. No wheezing today. No shortness of breath to conversation.). Absent: accessory muscle use - Cardiovascular Cardiovascular exam: Present: RRR (Heart sounds are somewhat distant.), +S1, + S2. Absent: diastolic murmur, gallop, rubs, systolic murmur - GI/Abdominal GI/Abdominal exam: Present: soft, no peritoneal signs. Absent: distended, rebound, tenderness - exam: Present: circumcision. Absent: normal inspection (hypospadius noted), urethral discharge External exam: Absent: ecchymosis, erythema, lacerations, lesions, swelling - Extremities Exam Extremities exam: Present: pedal edema (Pitting edema below the knees is decreased from yesterday - below the knees he has more edema on the left than the right. In the thighs he has some medial edema, right more than left. There is no tenderness at all.), warm. Absent: calf tenderness, cyanotic - Neurological Exam Neurological exam: Present: oriented X3, no focal deficits, strengths equal and symetr throughout. Absent: pronater drift, facial droop, speech deficit Internal Medicine: Result - Labs CBC & Chem 7: 05/16/17 05:00 05/16/17 05:00 Labs: Urinalysis was positive for nitrites, leukocyte esterase and blood. I've been reassured that has been sent to [facility] for culture. They will scrap picker urine at 5 PM tonight. 05/18/17 Range/Units 19:25 Urine Color Yellow (Yellow) Urine Clarity Slightly Cloudy A (Clear) Urine pH 6.0 (5.0-8.0) pH Units Ur Specific [place] 1.015 (1.010-1.025) Urine Protein 30 H (Neg-Trace) mg/dL Urine Glucose (UA) Normal (Normal) mg/dL - VTE Documentation of Mechanical Device: Graduated compression elastic hosiery Consult Discharge Plan - Plan Referrals: Dre Maldonado MD [Primary Care Provider] -
[2017-05-19] MEDS: *HR* Rivaroxaban 10 MG TABLET PO SCH (17:25)
[2017-05-20 05:32] LABS: Hemoglobin 7.9 g/dL (12.9-16.9); Mean Corpuscular HGB Conc 31.6 g/dL (31.6-35.5); Mean Corpuscular Hemoglobin 27.6 pg (28.0-33.3); Mean Corpuscular Volume 87.4 fL (83.0-100.0); Mean Platelet Volume 10.3 fL (9.4-12.4); Platelet Count 189 K/mcL (140-400); Red Blood Count 2.86 M/mcL (4.19-5.50); Red Cell Distribution Width 17.6 % (11.5-14.5)
[2017-05-20 05:49] LABS: Calcium 8.6 mg/dL (8.6-10.8); Potassium 4.1 mEq/L (3.5-4.5)
--- NOTE | 2017-05-20 07:57 | Internal Med Progress Note ---
Date of Encounter: 05/20/17 Time of Encounter: 07:57 - Assessment and plan (1) Physical deconditioning Current Visit: Yes Status: Acute Assessment and plan: He is still very weak and had decreased ambulation abilities this week and because of edema in lower extremities. He thinks he is now improving. Continue with PT and OT. (2) History of CVA (cerebrovascular accident) Current Visit: No Status: Chronic Assessment and plan: No recurrence of CVA. (3) Paroxysmal atrial fibrillation Current Visit: No Status: Chronic Assessment and plan: Appears to remain in normal sinus rhythm. He is anticoagulated in case he has recurrence of atrial fibrillation (4) Chronic kidney disease (CKD) Current Visit: No Status: Chronic Assessment and plan: His chronic kidney disease has worsened a bit as his diuresis was increased by Dr. Pulido this weekend. We will recheck. Qualifiers: Chronic kidney disease stage: stage 3 (moderate) Qualified Code(s): N18.3 - Chronic kidney disease, stage 3 (moderate) (5) Hx of congestive heart failure Current Visit: No Status: Chronic Assessment and plan: No signs or symptoms of CHF or angina currently. (6) Cardiomyopathy, ischemic Current Visit: No Status: Chronic (7) Hypertension Current Visit: No Status: Chronic Assessment and plan: Blood pressures have been relatively stable. Qualifiers: Hypertension type: essential hypertension Qualified Code(s): I10 - Essential (primary) hypertension (8) Chronic anemia Current Visit: No Status: Chronic Assessment and plan: Patient has a history of chronic anemia. Likely from chronic kidney disease. He could have GI source as well. He has an appointment with Dr. Muhammad today, I feel he is too weak to make the trip. I will cancel that appointment. 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 It gives him pain when he sits too long. We will continue to follow. Qualifiers: Laterality: left Qualified Code(s): L89.322 - Pressure ulcer of left buttock, stage 2 - Subjective Interval history: Patient states that when he sits in the chair for too long he has pain in the buttock area where he has a small ulceration. Denies a cardiac type chest pain or palpitation. He denies any dyspnea. He had swelling in his lower extremities this weekend and had difficulties with moving particularly the left lower extremity. It is now improved. He has an appointment to see Dr. Muhammad this afternoon. I suggest that I could cancel that as I think he would benefit from the therapy here and he is too weak to make the transport - Constitutional Vitals: Temp Pulse Resp BP Pulse Ox 97.1 F L 63 18 94/53 96 05/20/17 07:23 05/20/17 07:23 05/20/17 07:23 05/20/17 07:23 05/20/17 07:23 General appearance: Present: A&O X 3, pleasant, no acute distress, answers questions appropriately - Respiratory Respiratory exam: Present: decreased breath sounds, CTAB - Cardiovascular Cardiovascular exam: Present: RRR, +S1, +S2, systolic murmur (1/6 systolic murmur) - GI/Abdominal GI/Abdominal exam: Present: soft. Absent: mass, tenderness - Extremities Exam Additional comments: He has a small amount of edema both lower extremities. He has decreased range of motion of the left knee. He has some edema in the left lateral thigh. - Skin Additional comments: Less than 1 cm second degree ulceration left buttock covered with dressing. Internal Medicine: Result - Labs CBC & Chem 7: 05/20/17 05:00 05/20/17 05:00 Labs: Short CBC 05/20/17 Range/Units 05:00 WBC 8.5 (4.3-11.1) K/mcL Hgb 7.9 L (12.9-16.9) g/dL Hct 25.0 L (37.5-50.1) % Plt Count 189 (140-400) K/mcL BMP 05/20/17 05:00 Sodium 135 L Potassium 4.1 Chloride 99 Carbon Dioxide 30 H BUN 54 H Creatinine 2.39 H Glucose 99 Calcium 8.6 Labs have been reviewed. Hemoglobin is down a bit. Creatinine is up a bit from baseline. - VTE Documentation of Mechanical Device: Graduated compression elastic hosiery Consult Discharge Plan - Plan Referrals: Dre Maldonado MD [Primary Care Provider] -
[2017-05-20] MEDS: Furosemide 40 MG TABLET PO SCH ×3 (08:48→18:09)
[2017-05-20] MEDS: Isosorbide MONOnitrate (24 HR) 30 MG TAB.ER.24H PO SCH (08:48)
[2017-05-20] MEDS: *HR* Amiodarone 200 MG TABLET PO SCH (08:48)
[2017-05-20] MEDS: Aspirin Enteric Coated 81 MG Tablet PO SCH (08:48)
[2017-05-20] MEDS: Finasteride 5 MG TABLET PO SCH (08:48)
[2017-05-20] MEDS: Multivit/Ca/Min/Fe/FA 1 TAB TABLET PO SCH (08:48)
[2017-05-20] MEDS: Lactulose Oral Soln 20 GM/30 ML UDC PO SCH ×2 (08:58→22:16)
[2017-05-20] MEDS: *HR* Rivaroxaban 10 MG TABLET PO SCH (18:09)
--- NOTE | 2017-05-20 19:58 | Event Note ---
Date of Encounter: 05/20/17 Time of Encounter: 19:56 He was to have an appointment to see Dr. Muhammad in [place] today for consultation regarding upper and lower endoscopy for anemia as well as mildly elevated LFTs. I felt he would be too weak to travel and would benefit more from the physical therapy today. I canceled that appointment. Unfortunately, I do not really that to the nurse who had already arranged transportation. The patient did not state otherwise and he was transported to [place] and back. Dr. Muhammad's consultation stated that the patient was in such a poor medical condition to warrant upper and lower endoscopies at this time. He recommended conservative measure with transfusions if needed. I discussed this with the patient tonight. He discussed it with his daughter on the phone as well. We will continue to monitor.
--- NOTE | 2017-05-21 07:22 | Internal Med Progress Note ---
Date of Encounter: 05/23/17 Time of Encounter: 07:22 - Assessment and plan (1) Physical deconditioning Current Visit: Yes Status: Acute Assessment and plan: Continue with PT and OT therapies. We have discussed discharge planning for Saturday and considering [facility]. He said he will talk to social media marketing manager today (2) History of CVA (cerebrovascular accident) Current Visit: Yes Status: Chronic Assessment and plan: No recurrence of CVA. Does have chronic gait abnormality (3) Paroxysmal atrial fibrillation Current Visit: Yes Status: Chronic Assessment and plan: No recurrence of atrial fibrillation. (4) Chronic kidney disease (CKD) Current Visit: Yes Status: Chronic Assessment and plan: History chronic kidney disease. Creatinine worsened when Lasix increased. It is now improved now. Qualifiers: Chronic kidney disease stage: stage 3 (moderate) Qualified Code(s): N18.3 - Chronic kidney disease, stage 3 (moderate) (5) Hx of congestive heart failure Current Visit: Yes Status: Chronic Assessment and plan: History of congestive heart failure on admission. Clinically he is improving except he does have lower extremity edema. I suspect his elevated liver functions are related to passive venous congestion as well. His workup for his elevated liver functions are otherwise unremarkable. He saw GI yesterday and no new intervention or thoughts forwarded to me. (6) Cardiomyopathy, ischemic Current Visit: Yes Status: Chronic (7) Hypertension Current Visit: Yes Status: Chronic Qualifiers: Hypertension type: essential hypertension Qualified Code(s): I10 - Essential (primary) hypertension (8) Chronic anemia Current Visit: Yes Status: Chronic Assessment and plan: He saw Dr. Muhammad yesterday for consideration for upper lower endoscopy. The opinion of Dr. Muhammad was to do neither and to treat conservatively with transfusions as needed. Did not feel he was safe enough/health enough to scope at this point to make it worthwhile. (9) Vomiting Current Visit: Yes Status: Acute Assessment and plan: Vomiting seems to be resolved. He burped up a bit last night but no vomiting. He was not hungry for supper, he has not had breakfast yet today. Qualifiers: Vomiting type: unspecified Vomiting Intractability: non-intractable Nausea presence: without nausea Qualified Code(s): R11.11 - Vomiting without nausea (10) Elevated LFTs Current Visit: Yes Status: Acute Assessment and plan: He saw GI specialist yesterday. No information or suggestions forwarded to me yet. I suspect he has increased venous congestion from CHF that account for elevated liver functions. His workup for hepatitis was negative. His CT scan was negative for obstructive issues. No jaundice or particular symptoms. I think is reasonable to follow. I will review his med list as well. (11) BPH w urinary obs/LUTS Current Visit: Yes Status: Chronic Assessment and plan: Continues with urinary symptoms and incontinence. His urine culture showed mixed amber and we will send another culture. (12) Decubitus ulcer of buttock, stage 2 Current Visit: Yes Status: Acute Assessment and plan: I did not reevaluate today. Qualifiers: Laterality: left Qualified Code(s): L89.322 - Pressure ulcer of left buttock, stage 2 - Subjective Interval history: Patient denies any acute symptoms this morning. He denies any cardiac respiratory symptoms. He said he did well with therapy yesterday and they practiced standing for longer periods of time. He feels stronger on his legs now. He had a bowel movement last evening and feels better. He also understands that dissipated discharge state of Saturday and deciding whether ECF [facility] appropriate, he is unlikely to find 24-hour caregiver at home. He seems to be okay with that idea. - Constitutional Vitals: Temp Pulse Resp BP Pulse Ox 97.6 F 60 16 91/54 97 05/21/17 04:22 05/21/17 04:22 05/20/17 11:52 05/21/17 04:22 05/21/17 04:22 General appearance: Present: A&O X 3, pleasant, no acute distress, answers questions appropriately - Respiratory Additional comments: Markedly diminished breath sounds throughout but essentially clear. Few atelectatic crackles at the bases only. - Cardiovascular Cardiovascular exam: Present: distant heart sounds, RRR, +S1, +S2, systolic murmur (2/6 systolic murmur) - GI/Abdominal GI/Abdominal exam: Present: soft. Absent: tenderness - Extremities Exam Additional comments: He continues to have fullness in his thighs but not pitting edema as such. I did not check his buttocks. He has elastic stockings on. Internal Medicine: Result - Labs CBC & Chem 7: 05/21/17 07:20 05/21/17 07:20 Labs: His hemoglobin is back up to 8.2. His creatinine has improved a bit. His liver functions have worsened. - VTE Documentation of Mechanical Device: Graduated compression elastic hosiery Consult Discharge Plan - Plan Referrals: Dre Maldonado MD [Primary Care Provider] -
[2017-05-21 07:51] LABS: Basophils # 0.1 K/mcL (0.0-0.2); Basophils % 0.6 %; Eosinophils # 0.1 K/mcL (0.0-0.6); Eosinophils % 0.9 %; Hematocrit 26.2 % (37.5-50.1); Hemoglobin 8.2 g/dL (12.9-16.9); Immature Granulocytes % 0.3 % (0-4); Lymphocytes # 0.5 K/mcL (0.6-4.6); Lymphocytes % 6.3 %; Mean Corpuscular HGB Conc 31.3 g/dL (31.6-35.5); Mean Corpuscular Hemoglobin 27.6 pg (28.0-33.3); Mean Corpuscular Volume 88.2 fL (83.0-100.0); Mean Platelet Volume 10.2 fL (9.4-12.4); Monocytes # 0.9 K/mcL (0.0-1.3); Neutrophils # 6.5 K/mcL (1.6-8.9); Platelet Count 203 K/mcL (140-400); Red Blood Count 2.97 M/mcL (4.19-5.50); Red Cell Distribution Width 17.7 % (11.5-14.5); Segmented Neutrophils % 80.9 %
[2017-05-21 08:05] LABS: Albumin 2.2 g/dL (3.5-5.0); Albumin/Globulin Ratio 0.7 (1.1-2.2); Bilirubin,Total 1.9 mg/dL (0.2-1.2); Globulin 3.3 g/dL (2.4-3.5); Total Protein 5.5 g/dL (6.0-8.3)
[2017-05-21] MEDS: *HR* Amiodarone 200 MG TABLET PO SCH (08:18)
[2017-05-21] MEDS: Furosemide 40 MG TABLET PO SCH ×4 (08:18→16:56)
[2017-05-21] MEDS: Aspirin Enteric Coated 81 MG Tablet PO SCH (08:18)
[2017-05-21] MEDS: Isosorbide MONOnitrate (24 HR) 30 MG TAB.ER.24H PO SCH (08:18)
[2017-05-21] MEDS: Finasteride 5 MG TABLET PO SCH (08:18)
[2017-05-21] MEDS: Multivit/Ca/Min/Fe/FA 1 TAB TABLET PO SCH (08:18)
[2017-05-21] MEDS: Lactulose Oral Soln 20 GM/30 ML UDC PO SCH ×2 (08:18→21:28)
[2017-05-21] MEDS: *HR* Rivaroxaban 10 MG TABLET PO SCH (16:52)
[2017-05-21 20:18] LABS: Bilirubin,Urine Negative (Negative); Blood,Urine Large (Negative); Clarity,Urine Clear (Clear); Color,Urine Yellow (Yellow); Glucose,Urine (UA) Normal (Normal); Ketones,Urine Negative (Negative); Leukocyte Esterase,Urine Small (Negative); Nitrite,Urine Positive (Negative); Protein,Urine 30 mg/dL (Neg-Trace); Specific Gravity,Urine 1.015 (1.010-1.025); Urobilinogen,Urine Normal (Normal)
[2017-05-21 20:33] LABS: Bacteria,Urine Many per hpf (None-Few); Hyaline Casts,Urine Few per lpf (None-Few); Squamous Epithelial Cell,Urine Few per lpf (None-Few)
[2017-05-22] MEDS: Multivit/Ca/Min/Fe/FA 1 TAB TABLET PO SCH (08:57)
[2017-05-22] MEDS: Isosorbide MONOnitrate (24 HR) 30 MG TAB.ER.24H PO SCH (08:58)
[2017-05-22] MEDS: *HR* Amiodarone 200 MG TABLET PO SCH (08:58)
[2017-05-22] MEDS: Furosemide 40 MG TABLET PO SCH ×3 (08:58→17:29)
[2017-05-22] MEDS: Finasteride 5 MG TABLET PO SCH (08:58)
[2017-05-22] MEDS: Aspirin Enteric Coated 81 MG Tablet PO SCH (08:59)
[2017-05-22] MEDS: Lactulose Oral Soln 20 GM/30 ML UDC PO SCH ×2 (09:00→20:13)
--- NOTE | 2017-05-22 11:06 | Internal Med Progress Note ---
Date of Encounter: 05/23/17 Time of Encounter: 11:05 - Assessment and plan (1) Physical deconditioning Current Visit: Yes Status: Acute Assessment and plan: Continue with PT and OT and planned for discharge to [facility] on Saturday. He still has difficulties with ambulation. (2) History of CVA (cerebrovascular accident) Current Visit: Yes Status: Chronic Assessment and plan: No acute CVA noted. (3) Paroxysmal atrial fibrillation Current Visit: Yes Status: Chronic Assessment and plan: He has been in sinus rhythm since admission. (4) Chronic kidney disease (CKD) Current Visit: Yes Status: Chronic Assessment and plan: Chronic kidney disease is stable. Qualifiers: Chronic kidney disease stage: stage 3 (moderate) Qualified Code(s): N18.3 - Chronic kidney disease, stage 3 (moderate) (5) Hx of congestive heart failure Current Visit: Yes Status: Chronic Assessment and plan: No current signs of CHF. (6) Cardiomyopathy, ischemic Current Visit: Yes Status: Chronic (7) Hypertension Current Visit: Yes Status: Chronic Assessment and plan: Blood pressure under adequate control. Qualifiers: Hypertension type: essential hypertension Qualified Code(s): I10 - Essential (primary) hypertension (8) Chronic anemia Current Visit: Yes Status: Chronic (9) Vomiting Current Visit: Yes Status: Resolved Qualifiers: Vomiting type: unspecified Vomiting Intractability: non-intractable Nausea presence: without nausea Qualified Code(s): R11.11 - Vomiting without nausea (10) Elevated LFTs Current Visit: Yes Status: Acute Assessment and plan: Liver functions have elevated more. Not particularly symptomatic. Still likely from passive venous congestion. Workup so far negative. 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 He continues with his PT and OT. He has had no vomiting. His appetite was not great last night. He does continue to improve. - Constitutional Vitals: Temp Pulse Resp BP Pulse Ox 98.1 F 61 18 101/52 96 05/22/17 07:00 05/22/17 07:00 05/22/17 07:00 05/22/17 07:00 05/22/17 07:00 General appearance: Present: A&O X 3, pleasant, no acute distress, answers questions appropriately - Respiratory Additional comments: Slightly diminished breath sounds but relatively clear. No respiratory distress. Has a bit of anterior congestion that partially clears with cough. - Cardiovascular Cardiovascular exam: Present: distant heart sounds, RRR, +S1, +S2, systolic murmur (2/6 systolic murmur) - GI/Abdominal GI/Abdominal exam: Present: soft. Absent: tenderness - Extremities Exam Additional comments: Small amount of ankle edema. He is wearing elastic stockings. He has some edema and puffiness in his thighs but improved. Internal Medicine: Result - Labs CBC & Chem 7: 05/21/17 07:20 05/21/17 07:20 Labs: Urine 05/21/17 Range/Units 20:15 Urine Color Yellow (Yellow) Urine Clarity Clear (Clear) Urine pH 6.0 (5.0-8.0) pH Units Ur Specific [place] 1.015 (1.010-1.025) Urine Protein 30 H (Neg-Trace) mg/dL Urine Glucose (UA) Normal (Normal) mg/dL - VTE Documentation of Mechanical Device: Graduated compression elastic hosiery Consult Discharge Plan - Plan Referrals: Dre Maldonado MD [Primary Care Provider] -
--- NOTE | 2017-05-22 13:32 | Psychological Evaluation ---
Date of Encounter: 05/22/17 Time of Encounter: 10:00 History of Present Illness History of present illness: Mr. Dorado is a 86 year old male who was admitted for physical deconditioning. He is currently using a walker. Past Medical History Medical history: H is positive for atrial fibrillation, chronic kidney disease. There is no reported previous psychiatric history. Home Medications and Allergies Carvedilol [Coreg] 3.125 mg PO BIDWM 02/19/15 [History] Tamsulosin [Flomax] 0.4 mg PO HS 02/19/15 [History] Rivaroxaban [Xarelto] 10 mg PO DAILY 01/26/16 [History] Albuterol Sulfate [Albuterol Inhaler] 2 inh IH Q4HR PRN 01/30/16 [History] Atorvastatin Calcium [Lipitor] 80 mg PO DAILY 01/30/16 [History] Finasteride [Proscar] 5 mg PO DAILY 01/30/16 [History] Multivitamin [Multi-Day Vitamins] 1 tab PO DAILY 01/30/16 [History] Nitroglycerin [Nitrostat] 0.4 mg SL Q5-6MIN PRN 01/30/16 [History] Amiodarone [Cordarone] 200 mg PO DAILY 05/07/17 [History] Aspirin [Lo-Dose Aspirin EC] 81 mg PO DAILY 05/07/17 [History] Docusate [Colace] 100 mg PO DAILY 05/07/17 [History] Furosemide [Lasix] 40 mg PO BIDWM 05/07/17 [History] Isosorbide MONOnitrate (24 HR) [Imdur] 30 mg PO DAILY 05/07/17 [History] Temazepam [Restoril] 7.5 mg PO HS PRN 05/07/17 [History] Levothyroxine [Synthroid] 75 mcg PO DAILY@0630 #30 tablet 05/08/17 [Rx] 3 Allergy/AdvReac Type Severity Reaction Status Date / Time Penicillins Allergy Hives Verified 05/07/17 00:15 Social History - Social History Social History: The patient has been a for 7 years. He lives alone. 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 The patient has 2 children Cognitive/Emotional Assessment - Cognitive Ability Abstract Thinking Ability: No Deficits Noted (Mr. Dorado was alert and responded to all questions asked. In general, he provided accurate information. He demonstrated good awareness of some limitations. Decision making regarding placement after rehab was appropirate.) Assessment & Plan - Prognosis Prognosis: Fair (The patient will be discharged to an ECF. Mr. Dorado feels this is an appropirate placement. The patient denies depression; no further psychological intervention is suggested at this time.)
[2017-05-22] MEDS: *HR* Rivaroxaban 10 MG TABLET PO SCH (17:30)
[2017-05-23] MEDS: Lactulose Oral Soln 20 GM/30 ML UDC PO SCH ×2 (10:45→21:38)
[2017-05-23] MEDS: *HR* Amiodarone 200 MG TABLET PO SCH (10:47)
[2017-05-23] MEDS: Multivit/Ca/Min/Fe/FA 1 TAB TABLET PO SCH (10:47)
[2017-05-23] MEDS: Furosemide 40 MG TABLET PO SCH ×3 (10:47→17:43)
[2017-05-23] MEDS: Aspirin Enteric Coated 81 MG Tablet PO SCH (10:48)
[2017-05-23] MEDS: Isosorbide MONOnitrate (24 HR) 30 MG TAB.ER.24H PO SCH (10:48)
[2017-05-23] MEDS: Finasteride 5 MG TABLET PO SCH (10:48)
[2017-05-23] MEDS: *HR* Rivaroxaban 10 MG TABLET PO SCH (17:42)
--- NOTE | 2017-05-23 18:59 | Internal Med Progress Note ---
Date of Encounter: 05/23/17 Time of Encounter: 18:58 - Assessment and plan (1) Physical deconditioning Current Visit: Yes Status: Acute Assessment and plan: Physical deconditioning and requiring PT and OT and will need 24-hour supervision care and will be going [facility] if stable (2) History of CVA (cerebrovascular accident) Current Visit: Yes Status: Chronic Assessment and plan: No recurrence of his CVA. (3) Paroxysmal atrial fibrillation Current Visit: Yes Status: Chronic Assessment and plan: Remaining in sinus rhythm. (4) Chronic kidney disease (CKD) Current Visit: Yes Status: Chronic Assessment and plan: His last creatinine was actually improved. Qualifiers: Chronic kidney disease stage: stage 3 (moderate) Qualified Code(s): N18.3 - Chronic kidney disease, stage 3 (moderate) (5) Hx of congestive heart failure Current Visit: Yes Status: Chronic Assessment and plan: No signs of acute congestive heart failure currently. He does have lower extremity edema, likely from being dependent. (6) Cardiomyopathy, ischemic Current Visit: Yes Status: Chronic (7) Hypertension Current Visit: Yes Status: Chronic Qualifiers: Hypertension type: essential hypertension Qualified Code(s): I10 - Essential (primary) hypertension (8) Chronic anemia Current Visit: Yes Status: Chronic (9) Vomiting Current Visit: Yes Status: Resolved Qualifiers: Vomiting type: unspecified Vomiting Intractability: non-intractable Nausea presence: without nausea Qualified Code(s): R11.11 - Vomiting without nausea (10) Elevated LFTs Current Visit: Yes Status: Acute Assessment and plan: Likely from passive venous congestion. No symptoms per se. Negative workup at this time. 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 He walked from the rehabilitation unit back to his room today. He thinks his lower extremity swelling is going down. He denies any dyspnea or cardiac symptoms. He says he is ready to go to the [facility] tomorrow. - Constitutional Vitals: Temp Pulse Resp BP Pulse Ox 98.4 F 60 16 90/50 96 05/23/17 16:27 05/23/17 16:27 05/23/17 16:27 05/23/17 16:27 05/23/17 16:27 General appearance: Present: A&O X 3, pleasant, no acute distress, answers questions appropriately - Respiratory Respiratory exam: Present: decreased breath sounds, CTAB - Cardiovascular Cardiovascular exam: Present: RRR, +S1, +S2, systolic murmur (2/6 systolic murmur) - Extremities Exam Additional comments: He is wearing his elastic stockings and keeping his edema under good control. He does have some puffiness of his anterior thighs above the stockings though. Internal Medicine: Result - Labs CBC & Chem 7: 05/21/17 07:20 05/21/17 07:20 - VTE Documentation of Mechanical Device: Graduated compression elastic hosiery Consult Discharge Plan - Plan Referrals: rDe Maldonado MD [Primary Care Provider] -
--- NOTE | 2017-05-24 07:20 | Discharge Summary ---
Date of Encounter: 05/24/17 Time of Encounter: 07:00 - Discharge Diagnosis (1) Physical deconditioning Priority: Primary Status: Acute Comments: Patient was admitted to swing bed having had initial admission to hospital with dyspnea and acute congestive heart failure. He was too weak to go home and was transferred into a swing bed for ongoing PT and OT. The therapy unit feels that he is met maximum hospital benefit and can be discharged. They recommend 24-hour surveillance/care that is not available at home. He still having gait error malady and weakness. He will be discharged to [facility]. (2) History of CVA (cerebrovascular accident) Priority: Secondary Status: Chronic Comments: Patient's known history of previous CVA with gait and her malady. No recurrence of new CVA symptoms. He has undergone PT and OT and ready for ECF at this point. (3) Paroxysmal atrial fibrillation Priority: Secondary Status: Chronic Comments: Patient has long-standing history of paroxysmal atrial fibrillation and is anticoagulated. However he has been in normal sinus rhythm the entire hospitalization. No angina or tachycardia. (4) Chronic kidney disease (CKD) Priority: Secondary Status: Chronic Comments: Patient's history of chronic kidney disease and his creatinine has been relatively stable. He sees a Dr. Logan bran mixer at [place]. Qualifiers: Chronic kidney disease stage: stage 3 (moderate) Qualified Code(s): N18.3 - Chronic kidney disease, stage 3 (moderate) (5) Hx of congestive heart failure Priority: Secondary Status: Chronic Comments: When the patient was admitted he was treated for acute congestive heart failure. I cleared nicely. He has had no angina or CHF since. His echocardiogram showed no change in his EF from baseline which is 30%. He had had a recent cardiology evaluation in [place] and it was recommended to increase his diuretic on a when necessary basis for about 3 days if he has weight gain or dyspnea. He has had no further problems. (6) Cardiomyopathy, ischemic Priority: Secondary Status: Chronic Comments: As above. 30% ejection fraction which is stable. See the echo report (7) Hypertension Priority: Secondary Status: Chronic Comments: His blood pressure has been under good control. Occasionally it has been in the 90s systolic but asymptomatic. Qualifiers: Hypertension type: essential hypertension Qualified Code(s): I10 - Essential (primary) hypertension (8) Chronic anemia Priority: Secondary Status: Chronic Comments: Patient has a history of chronic anemia and likely from his chronic kidney disease. He had a consultation to Dr. Muhammad to see whether he would be a candidate for upper and lower endoscopy. Dr. Muhammad felt that he was not well enough to undergo endoscopy and recommended blood transfusion as needed if indicated. Patient does receive Aranesp about every [address] Logan recommendation and order. (9) Vomiting Priority: Secondary Status: Resolved Comments: During the stay he did have some vomiting episodes. It seemed to clear with PPI. His CT scan was negative for etiology. He has had no problems recently. His bowels are moving better now and he thinks as a contributing factor. Qualifiers: Vomiting type: unspecified Vomiting Intractability: non-intractable Nausea presence: without nausea Qualified Code(s): R11.11 - Vomiting without nausea (10) Elevated LFTs Priority: Secondary Status: Acute Comments: Patient has had mildly elevated transaminase and bilirubin. He saw Dr. Mhuammad in consultation and I do not have a formal consultation letter yet. Hepatitis testing and CT scan was negative for focal etiology. Likely this is from chronic venous stasis in the liver. He is not symptomatic. Conservative measure with follow-up lab work likely best approach at this point. (11) BPH w urinary obs/LUTS Priority: Secondary Status: Chronic Comments: He has a chronic history of BPH and urinary incontinence issues. There are times when he has urgency and cannot get to the toilet or use the urinal in time and he may be incontinent. He states this is an ongoing problem. He is seen urology and no cure. (12) Decubitus ulcer of buttock, stage 2 Priority: Secondary Status: Acute Comments: Once admitted decubitus ulcer on the buttock is now almost completely healed. There is a new area in a crease which is slightly opened. He has had Allevyn on the sacral area and buttock region since admission. Qualifiers: Laterality: left Qualified Code(s): L89.322 - Pressure ulcer of left buttock, stage 2 (13) Blood blister Priority: Secondary Status: Acute Comments: Today I found a blood blister about 2-3 cm on the left heel which is intact. The right heel is soft and mushy. Dressings have been applied. The staff is trying to keep his feet/heels off the bed with a pillow. Obviously this has been unsuccessful. Precautions discussed with patient. - Discharge Medications Home Medications: Carvedilol [Coreg] 3.125 mg PO BIDWM 02/19/15 [History] Tamsulosin [Flomax] 0.4 mg PO HS 02/19/15 [History] Albuterol Sulfate [Albuterol Inhaler] 2 inh IH Q4HR PRN 01/30/16 [History] Atorvastatin Calcium [Lipitor] 80 mg PO DAILY 01/30/16 [History] Finasteride [Proscar] 5 mg PO DAILY 01/30/16 [History] Multivitamin [Multi-Day Vitamins] 1 tab PO DAILY 01/30/16 [History] Nitroglycerin [Nitrostat] 0.4 mg SL Q5-6MIN PRN 01/30/16 [History] Amiodarone [Cordarone] 200 mg PO DAILY 05/07/17 [History] Aspirin [Lo-Dose Aspirin EC] 81 mg PO DAILY 05/07/17 [History] Furosemide [Lasix] 40 mg PO BIDWM 05/07/17 [History] Isosorbide MONOnitrate (24 HR) [Imdur] 30 mg PO DAILY 05/07/17 [History] Levothyroxine [Synthroid] 75 mcg PO DAILY@0630 #30 tablet 05/08/17 [Rx] Docusate [Colace] 100 mg PO BIDWM capsule 05/24/17 [Rx] Ferrous Sulfate 325 mg PO BIDWM tablet 05/24/17 [Rx] Lactulose 10 gm PO BID udc 05/24/17 [Rx] Omeprazole [PriLOSEC] 20 mg PO DAILY@0630 capsule. 05/24/17 [Rx] Ondansetron ODT [Zofran ODT] 4 mg SL Q6HR PRN tab.rapdis 05/24/17 [Rx] Rivaroxaban [Xarelto] 10 mg PO 1700 tablet 05/24/17 [Rx] Allergies/Adverse Reactions: 3 Allergy/AdvReac Type Severity Reaction Status Date / Time Penicillins Allergy Hives Verified 05/07/17 00:15 Procedures/tests Complete & Pending: Laboratory Results - last 72 hr 05/21/17 05/21/17 05/21/17 07:20 07:20 20:15 WBC 8.0 RBC 2.97 L Hgb 8.2 L Hct 26.2 L MCV 88.2 MCH 27.6 L MCHC 31.3 L RDW 17.7 H Plt Count 203 MPV 10.2 Immature Gran % 0.3 Seg Neutrophils % 80.9 Lymphocytes % 6.3 Monocytes % 11.0 Eosinophils % 0.9 Basophils % 0.6 Neutrophils # 6.5 Lymphocytes # 0.5 L Monocytes # 0.9 Eosinophils # 0.1 Basophils # 0.1 Sodium 137 Potassium 4.0 Chloride 100 Carbon Dioxide 30 H BUN 51 H Creatinine 2.32 H Est GFR ( Amer) 33 L Est GFR (Non-Af Amer) 27 L BUN/Creatinine Ratio 22 Glucose 88 Calculated Osmolality 297 Calcium 9.0 Total Bilirubin 1.9 H AST 177 H ALT 115 H Alkaline Phosphatase 82 Serum Total Protein 5.5 L Albumin 2.2 L Globulin 3.3 Albumin/Globulin Ratio 0.7 L Urine Color Yellow Urine Clarity Clear Urine pH 6.0 Ur Specific [place] 1.015 Urine Protein 30 H Urine Glucose (UA) Normal Urine Ketones Negative Urine Blood Large H Urine Nitrite Positive A Urine Bilirubin Negative Urine Urobilinogen Normal Ur Leukocyte Esterase Small H Urine Microscopic RBC 5-15 H Urine Microscopic WBC 5-15 H Ur Squamous Epith Cells Few Urine Bacteria Many H Hyaline Casts Few Ur Culture Indicated? YES A Microbiology 05/21/17 20:15 Urine Culture - Final Urine,Clean Catch Culture is grossly mixed, unable to properly interpret. Please repeat if indicated. 05/18/17 19:25 Urine Culture - Final Urine,Clean Catch Culture is grossly mixed, unable to properly interpret. Please repeat if indicated. Date of admission: 05/13/17 11:35 Primary care physician: Dre Maldonado MD Consults: 05/13/17 09:31 Consult to Physical Therapy [CONS] Routine Comment: Evaluate, develop and implement POC Reason for Consult: eval 05/14/17 08:58 Consult to Recreational Therapy [CONS] Routine Comment: 05/21/17 14:49 Consult to Psychology [CONS] Routine Consulting Provider: Lauryn [place] Reason for Consult: see physical therapy Call Completed: No Discharging clinician: Dre Maldonado Anticipated date of discharge: 05/24/17 - Patient Status Disposition: Transfer SNF Condition: Good Functional capacity at discharge: uses cane/walker Overall status at discharge: patient is not back to baseline - Discharge Instructions Follow Up With: Dre Maldonado MD [Primary Care Provider] - (After discharge from [facility] will follow up with Tawny Leger or Dr. Maldonado) - Diet and Activity Activity: ambulate only with your walker, wear oxygen at all times Diet: low fat, low cholesterol, low salt diet Interval History: Overnight patient slept fairly well. He denies any cardiac or respiratory symptoms this morning. He did complain of left foot and ankle pain and the blood blister on his left heel was found. He feels like he is ready to move on to the custodial now. Hospital course: Mr. Dorado is a 86 year old male Admitted to an acute bed with dyspnea, hypoxia and acute congestive heart failure. That cleared nicely. However, he did not develop vomiting and weakness and deconditioning and was transferred to a swing bed. Please see the above diagnoses. - Time Spent with Patient Total time spent providing and/or coordinating discharge services: - Constitutional Vitals: Temp Pulse Resp BP Pulse Ox 97.6 F 65 15 107/58 97 05/24/17 04:00 05/24/17 04:00 05/24/17 04:00 05/24/17 04:00 05/24/17 04:00 General appearance: Present: A&O X 3, pleasant, no acute distress, answers questions appropriately - Respiratory Respiratory exam: Present: CTAB - Cardiovascular Cardiovascular exam: Present: RRR, +S1, +S2, systolic murmur (2/6 systolic murmur) - GI/Abdominal GI/Abdominal exam: Present: soft. Absent: hepatomegaly, tenderness - Extremities Exam Additional comments: Elastic stockings are in place. No significant edema. Left heel shows 2 cm blood blister intact. Right heel is soft and mushy. The edema in his thighs appears to be now cleared. - Skin Additional comments: The abrasion at the left knee is basically healed and scabbed nicely. The ulcer in the left lateral foot fifth metatarsal area is now basically healed into a scab and dry. The left heel shows a 2 cm blood blister intact. Right heel is soft and mushy. Dressings were placed on both heels. The 1 cm sacral/ upper buttock ulceration is healed. However he does have an "agnes" in the skin. The entire area is covered with a large Allevyn - VTE Documentation of Mechanical Device: Graduated compression elastic hosiery
--- NOTE | 2017-05-24 07:44 | Physician Discharge Referral ---
ExtendedCare Referral Info [facility] Provider in Charge: Provider in Charge after Transfer: PCP (Tawny Leger/ Marcie Maldonado) Institutional Level of Care: Skilled - Diagnosis (1) Physical deconditioning Priority: Primary Status: Acute (2) History of CVA (cerebrovascular accident) Priority: Secondary Status: Chronic (3) Paroxysmal atrial fibrillation Priority: Secondary Status: Chronic (4) Chronic kidney disease (CKD) Priority: Secondary Status: Chronic (5) Hx of congestive heart failure Priority: Secondary Status: Chronic (6) Cardiomyopathy, ischemic Priority: Secondary Status: Chronic (7) Hypertension Priority: Secondary Status: Chronic (8) Chronic anemia Priority: Secondary Status: Chronic (9) Vomiting Status: Resolved (10) Elevated LFTs Priority: Secondary Status: Acute (11) BPH w urinary obs/LUTS Priority: Secondary Status: Chronic (12) Decubitus ulcer of buttock, stage 2 Priority: Secondary Status: Acute (13) Blood blister Priority: Secondary Status: Acute - Transfer Medications Home Medications: Carvedilol [Coreg] 3.125 mg PO BIDWM 02/19/15 [History] Tamsulosin [Flomax] 0.4 mg PO HS 02/19/15 [History] Albuterol Sulfate [Albuterol Inhaler] 2 inh IH Q4HR PRN 01/30/16 [History] Atorvastatin Calcium [Lipitor] 80 mg PO DAILY 01/30/16 [History] Finasteride [Proscar] 5 mg PO DAILY 01/30/16 [History] Multivitamin [Multi-Day Vitamins] 1 tab PO DAILY 01/30/16 [History] Nitroglycerin [Nitrostat] 0.4 mg SL Q5-6MIN PRN 01/30/16 [History] Amiodarone [Cordarone] 200 mg PO DAILY 05/07/17 [History] Aspirin [Lo-Dose Aspirin EC] 81 mg PO DAILY 05/07/17 [History] Furosemide [Lasix] 40 mg PO BIDWM 05/07/17 [History] Isosorbide MONOnitrate (24 HR) [Imdur] 30 mg PO DAILY 05/07/17 [History] Levothyroxine [Synthroid] 75 mcg PO DAILY@0630 #30 tablet 05/08/17 [Rx] Docusate [Colace] 100 mg PO BIDWM capsule 05/24/17 [Rx] Ferrous Sulfate 325 mg PO BIDWM tablet 05/24/17 [Rx] Lactulose 10 gm PO BID udc 05/24/17 [Rx] Omeprazole [PriLOSEC] 20 mg PO DAILY@0630 capsule. 05/24/17 [Rx] Ondansetron ODT [Zofran ODT] 4 mg SL Q6HR PRN tab.rapdis 05/24/17 [Rx] Rivaroxaban [Xarelto] 10 mg PO 1700 tablet 05/24/17 [Rx] Allergies/Adverse Reactions: 3 Allergy/AdvReac Type Severity Reaction Status Date / Time Penicillins Allergy Hives Verified 05/07/17 00:15 - Respiratory Orders Oxygen / L per min (2-3 L/min per NC) Smoking Cessation: Smoking cessation has been advised. For more information, call the [place] Tobacco Quit Line at 2-698-UZAZ-NOW. - Ancillary Orders May use pressure relief devices daily prn, May go on DEANNA w/family/respon green party w /meds at nurse discretion PRN - Advance Directives Code Status: Full Code - Rehabiliation Orders Rehab Potential: Good Rehab Orders: Evaluation for Physical Therapy, Evaluation for Occupational Therapy - Treatments Skin tear care topically daily PRN per policy - Diet Orders No Added Salt (MARIELLE), Cardiac CERTIFICATION: I certify that the transfer of the above named patient to an Extended Care Facility is necessary for the continuing treatment of the diagnosis listed. The above information is true and accurate reflection of patient's current condition. Confidential - Redisclosure prohibited without a patient's written consent.
[2017-05-24] MEDS: *HR* Amiodarone 200 MG TABLET PO SCH (09:43)
[2017-05-24] MEDS: Multivit/Ca/Min/Fe/FA 1 TAB TABLET PO SCH (09:44)
[2017-05-24] MEDS: Isosorbide MONOnitrate (24 HR) 30 MG TAB.ER.24H PO SCH (09:44)
[2017-05-24] MEDS: Furosemide 40 MG TABLET PO SCH ×2 (09:44→12:31)
[2017-05-24] MEDS: Aspirin Enteric Coated 81 MG Tablet PO SCH (09:44)
[2017-05-24] MEDS: Finasteride 5 MG TABLET PO SCH (09:44)
[2017-05-24] MEDS: Lactulose Oral Soln 20 GM/30 ML UDC PO SCH (09:45)
[2017-05-24 13:00] VITALS: BP 101/64
== END 2017-05-24 15:00 | DRG 945 ==
LOC: INPGRE 11:35
PROVIDERS: ADMIT Family Medicine; ATTEND Family Medicine

== ENCOUNTER 2017-06-11 14:44 | Inpatient (IN) ==
--- NOTE | 2017-06-11 15:01 | Emergency Department Note ---
Disposition Clinical Impression: Heart failure, Cardiac LV ejection fraction 21-30%, Chronic kidney disease (CKD ), Paroxysmal atrial fibrillation, Hypertension, Cardiomyopathy, ischemic, Decubitus ulcer of buttock, stage 2, Acute congestive heart failure Disposition: Admitted As Inpatient Condition: Fair Referrals: NONE,PCP [Non-Partnered Physician] - Time of Disposition: 16:18 [facility] SOB HPI - General Stated Complaint: short of breath Time Seen by Provider: 06/11/17 14:47 Source: patient Mode of arrival: ambulatory Limitations: no limitations Nursing Notes Reviewed: Yes Vital Signs Reviewed: Yes - History of Present Illness Patient brought into the emergency room from a local nursing care facility after recent hospitalization here at [facility] patient Leist in rehabilitation at the [facility] for improvement daughter tells me that the patient's blood pressure has been waiting and has resulted been holding his water pill that he is put on at least 5 pounds in the past 24 hours today he is having shortness of breath decreased pulse ox swelling and edema into the groin and swelling and edema into the arm he states that he notes that he is wheezing he denies it is had any chest pain or chest pressure but has had dyspnea with activity he states that he is also getting sores on the lateral aspect of his left leg and on his coccyx area daughter states that they have asked to have him moved in the bed but states this is not cooperative they will not move him but when the daughter asked the dad about being moved he said EMS taken move mediate anything that makes him feel better and get the pressure off these areas would help as a result it appears that though he is getting cared for facility it is not to the standards of what he is requesting but in addition he has been having some transient hypotension and his been receiving diuretics but unfortunately has been putting on weight he is with a known ejection fraction of 30% this could be extruding factor as well as withholding of the Lasix which were easily putting him in the CHF she has been in previously she was sent in for evaluation after sats were found to be high 70s low 80s Pt Subjective Complaint: shortness of breath Onset (ago): day(s) Context: other (hx of chf daughter states facility with holding meds) Severity: moderate Consistency/Duration: gradually worsening Improves with: oxygen, upright position, other (diuretics) Worsens with: lying flat, movement Known history of: congestive heart failure Associated symptoms: Reports: cough, orthopnea, lower extremity pain (left leg specifically foot). Denies: chest pain, pain with inspiration, wheezing, sputum production, polyuria, polydipsia, parasthesias, palpitations, hemoptysis , diaphoresis, nausea/vomiting, syncope, abdominal pain, sense of impending doom Treatment prior to arrival: oxygen, diuretics Cough present: Yes Cough Description: Involuntary, Bronchospastic Cough Frequency: Intermittent Sputum production: No - Related Data Home Medications Medication Instructions Recorded Confirmed Carvedilol [Coreg] 3.125 mg PO BIDWM 02/19/15 05/13/17 Tamsulosin [Flomax] 0.4 mg PO HS 02/19/15 05/13/17 Albuterol Sulfate [Albuterol 2 inh IH Q4HR PRN 01/30/16 05/13/17 Inhaler] Atorvastatin Calcium [Lipitor] 80 mg PO DAILY 01/30/16 05/13/17 Finasteride [Proscar] 5 mg PO DAILY 01/30/16 05/13/17 Multivitamin [Multi-Day Vitamins] 1 tab PO DAILY 01/30/16 05/13/17 Nitroglycerin [Nitrostat] 0.4 mg SL Q5-6MIN PRN 01/30/16 05/07/17 Amiodarone [Cordarone] 200 mg PO DAILY 05/07/17 05/13/17 Aspirin [Lo-Dose Aspirin EC] 81 mg PO DAILY 05/07/17 05/13/17 Furosemide [Lasix] 40 mg PO BIDWM 05/07/17 05/13/17 Cholecalciferol (Vitamin D3) 50,000 unit PO AD 06/11/17 06/11/17 [Vitamin D] Lactobacillus Combo No.11 2 each PO BID 06/11/17 06/11/17 [Probiotic] Melatonin [Melatin] 3 mg PO HS 06/11/17 06/11/17 Spironolactone [Aldactone] 12.5 mg PO DAILY 06/11/17 06/11/17 Previous Rx's Medication Instructions Recorded Levothyroxine [Synthroid] 75 mcg PO DAILY@0630 #30 tablet 05/08/17 Docusate [Colace] 100 mg PO BIDWM capsule 05/24/17 Ferrous Sulfate 325 mg PO BIDWM tablet 05/24/17 Lactulose 10 gm PO BID udc 05/24/17 Omeprazole [PriLOSEC] 20 mg PO DAILY@0630 capsule. 05/24/17 Ondansetron ODT [Zofran ODT] 4 mg SL Q6HR PRN tab.rapdis 05/24/17 Rivaroxaban [Xarelto] 10 mg PO 1700 tablet 05/24/17 Allergies Allergy/AdvReac Type Severity Reaction Status Date / Time Penicillins Allergy Hives Verified 05/07/17 00:15 All systems ED: reviewed and negative except as stated. Review of Systems: As Per HPI Constitutional: Reports: weakness. Denies: fever, chills Eyes: Denies: eye pain, eye discharge ENT ED: Denies: ear pain, congestion, dysphagia Cardiovascular: Reports: dyspnea on exertion. Denies: chest pain, palpitations Respiratory: Reports: cough, dyspnea, wheezes Gastrointestinal: Denies: abdominal pain, nausea, vomiting Genitourinary: Denies: urgency, dysuria, frequency Musculoskeletal: Denies: back pain, neck pain Integumentary: Denies: rash Neurological: Denies: headache Psychiatric: Denies: anxiety Endocrine: Denies: fatigue Hematological/Lymphatic: Denies: easy bleeding Past Medical History - Past Medical History Attestation: Yes The following information was validated with the patient. Source: patient, old records reviewed, nursing notes reviewed Medical history: Reports: atrial fibrillation, cardiomyopathy, CHF, CVA, hyperlipidemia, hypertension, myocardial infarction, renal disease, thyroid disease, TIA Surgical history: Reports: carotid endarterectomy, cataract, pacemaker/AICD Psychiatric history: Reports: no psych history - Social History Smoking Status: Never smoker Smokeless Tobacco Status: No Alcohol use: Reports: none Drug use: Reports: none Physical Exam - General Limitations: no limitations General appearance: alert, in no apparent distress, obese (mild) - Head Head exam: atraumatic, normocephalic, normal inspection - Eye Eye exam: Present: normal appearance, PERRL, EOMI - ENT ENT exam: normal exam, normal oropharynx, mucous membranes moist, TM's normal bilaterally, normal external ear exam - Neck Neck exam: Present: normal inspection, full ROM, trachea midline. Absent: tenderness - Chest Chest inspection: Present: normal inspection, symmetric chest wall rise - Respiratory Respiratory exam: Present: prolonged expiratory phase, other (crackles anddimished) - Cardiovascular Cardiovascular exam: Present: regular rate, normal rhythm, normal heart sounds - Abdominal Exam Abdominal exam: Present: soft, Non-Tender, normal bowel sounds. Absent: mass, pulsatile mass - Expanded Upper Extremity Exam Shoulder exam: Present: normal inspection, full ROM, swelling (Is noted of the left upper arm wearing a Jobst hose but the fingers have been cut down on to the digits. To have more of a dependent type of edema) Arm exam: Present: normal inspection, full ROM, swelling Elbow exam: Present: normal inspection, full ROM, swelling Forearm/Wrist exam: Present: normal inspection, full ROM, swelling Hand exam: Present: normal inspection, full ROM, swelling Neurosensory exam: Normal: radial nerve, ulnar nerve, median nerve Vascular exam: Normal: capillary refill, radial pulse, ulnar pulse - Expanded Lower Extremity Exam Hip/Pelvis exam: Present: swelling (Swelling both lower extremities bilaterally up to the groin somewhat pale in appearance he has got decubitus breakdown from the lateral aspect of the left foot base of the fifth metatarsal base of the fifth digit and at the heel and ankle pulse 1 dorsal pedal posterior tibial pulses 2-3+ edema) Upper leg exam: Present: swelling Knee exam: Present: swelling Lower leg exam: Present: swelling. Absent: Homans' sign Ankle exam: Present: swelling Foot/toe exam: Present: swelling Gait: not tested/not observed - Back Exam Back exam: Present: normal inspection, full ROM, other (Decubitus breakdown around the buttocks area) - Neurological Exam Neurological exam: Present: alert, oriented X3, CN II-XII intact - Psychiatric Psychiatric exam: Present: normal affect, normal mood - Skin Skin exam: Present: warm, dry, intact, normal color Course Course Narrative: discussed the case witheen his family physithat he does havonic kidney dise in addition to this though he has got swelling and edema of the genitalia secondary to the fluid retention given a hydropic type appearance to the written genitalia as the edema into the arms he is most likely fluid retaining with the history the daughter says he has been 5 pounds since yesterday this is most likely fluid will need diuresis with decreased renal function of the internal bit more difficulty of obtaining the results of this as result admitted for observation given Bumex in the ER Vital Signs Temperature 98.0 F 06/11/17 14:47 Pulse Rate 73 06/11/17 14:47 Respiratory Rate 16 06/11/17 14:47 Blood Pressure 123/74 06/11/17 14:47 O2 Sat by Pulse Oximetry 100 06/11/17 14:47 Temperature 98.0 F 06/11/17 14:47 Pulse Rate 73 06/11/17 14:47 Respiratory Rate 16 06/11/17 14:47 Blood Pressure 123/74 06/11/17 14:47 O2 Sat by Pulse Oximetry 100 06/11/17 14:47 Oxygen Delivery Oxygen Delivery Room Air Shortness of Breath/Dyspnea - Differential Diagnosis Likely: acute exacerbation of chronic obstructive airways disease, congestive heart failure, pneumonia - Medical Records Medical records reviewed: Yes I reviewed the patient's medical records. - Lab Data Lab results reviewed: Yes I reviewed the patient's lab results. Result diagrams: 06/11/17 13:13 06/11/17 13:13 Lab Results 06/11/17 06/11/17 06/11/17 Range/Units 13:13 13:13 13:13 WBC 10.6 (4.3-11.1) K/mcL RBC 3.61 L (4.19-5.50) M/mcL Hgb 9.8 L (12.9-16.9) g/dL Hct 32.2 L (37.5-50.1) % MCV 89.2 (83.0-100.0) fL MCH 27.1 L (28.0-33.3) pg MCHC 30.4 L (31.6-35.5) g/dL RDW 17.2 H (11.5-14.5) % Plt Count 304 (140-400) K/mcL MPV 10.2 (9.4-12.4) fL Immature Gran % 0.4 (0-4) % Seg Neutrophils % 81.2 % Lymphocytes % 6.3 % Monocytes % 11.1 % Eosinophils % 0.6 % Basophils % 0.4 % Neutrophils # 8.6 (1.6-8.9) K/mcL Lymphocytes # 0.7 (0.6-4.6) K/mcL Monocytes # 1.2 (0.0-1.3) K/mcL Eosinophils # 0.1 (0.0-0.6) K/mcL Basophils # 0.0 (0.0-0.2) K/mcL PT 14.2 H (9.4-12.1) Seconds INR 1.3 APTT 33.5 (26.0-36.0) Seconds Sodium 137 (136-145) mEq/L Potassium 4.6 H (3.5-4.5) mEq/L Chloride 103 (98-109) mEq/L Carbon Dioxide 25 (19-29) mEq/L BUN 65 H (8-26) mg/dL Creatinine 2.23 H (0.72-1.25) mg/dL Est GFR ( Amer) 34 L (> 60) Est GFR (Non-Af Amer) 28 L (> 60) BUN/Creatinine Ratio 29 H (6-26) Glucose 124 H (70-99) mg/dL Calculated Osmolality 304 H (280-300) Calcium 9.7 (8.6-10.8) mg/dL Total Bilirubin 0.9 (0.2-1.2) mg/dL AST 236 H (5-34) Units/L ALT 184 H (0-55) Units/L Alkaline Phosphatase 128 H (38-126) Units/L Troponin I (0-0.03) ng/mL B-Natriuretic Peptide (0-100) pg/mL Serum Total Protein 7.0 (6.0-8.3) g/dL Albumin 2.5 L (3.5-5.0) g/dL Globulin 4.5 H (2.4-3.5) g/dL Albumin/Globulin Ratio 0.6 L (1.1-2.2) 06/11/17 06/11/17 Range/Units 13:13 13:13 WBC (4.3-11.1) K/mcL RBC (4.19-5.50) M/mcL Hgb (12.9-16.9) g/dL Hct (37.5-50.1) % MCV (83.0-100.0) fL MCH (28.0-33.3) pg MCHC (31.6-35.5) g/dL RDW (11.5-14.5) % Plt Count (140-400) K/mcL MPV (9.4-12.4) fL Immature Gran % (0-4) % Seg Neutrophils % % Lymphocytes % % Monocytes % % Eosinophils % % Basophils % % Neutrophils # (1.6-8.9) K/mcL Lymphocytes # (0.6-4.6) K/mcL Monocytes # (0.0-1.3) K/mcL Eosinophils # (0.0-0.6) K/mcL Basophils # (0.0-0.2) K/mcL PT (9.4-12.1) Seconds INR APTT (26.0-36.0) Seconds Sodium (136-145) mEq/L Potassium (3.5-4.5) mEq/L Chloride (98-109) mEq/L Carbon Dioxide (19-29) mEq/L BUN (8-26) mg/dL Creatinine (0.72-1.25) mg/dL Est GFR ( Amer) (> 60) Est GFR (Non-Af Amer) (> 60) BUN/Creatinine Ratio (6-26) Glucose (70-99) mg/dL Calculated Osmolality (280-300) Calcium (8.6-10.8) mg/dL Total Bilirubin (0.2-1.2) mg/dL AST (5-34) Units/L ALT (0-55) Units/L Alkaline Phosphatase (38-126) Units/L Troponin I 0.22 H* (0-0.03) ng/mL B-Natriuretic Peptide 2940 H (0-100) pg/mL Serum Total Protein (6.0-8.3) g/dL Albumin (3.5-5.0) g/dL Globulin (2.4-3.5) g/dL Albumin/Globulin Ratio (1.1-2.2) - Radiology Data Radiology results reviewed: Yes I reviewed the patient's radiology results. ITS Impressions Chest X-Ray 06/11/17 14:47 IMPRESSION: 1. Congestive heart failure. D/ / Zac Buenrostro MD / Zac Buenrostro MD Interpreting Provider: Zac Buenrostro MD - EKG Data EKG attestation: Yes I reviewed and interpreted this EKG. EKG results narrative: Sinus rhythm first degree AV block right bundle-branch block rate 74 NJ-2 55 QRS 136 QT 49 axis -71 Critical Care Time Critical Care Time: Yes Total Critical Care Time: 35 Attestation: Critical care performed: 35 minutes as result of hypoxia diuresis with the elevated BUN/creatinine and also the elevated troponin which is most likely secondary to renal insufficiency increasing fluid retention putting increasing stress and strain on the heart which already has some underlying cardiac disease as well as the congestive heart failure patient was then admitted transferred to [facility] Time is exclusive of separately billable procedures. Time includes: direct patient care, patient reassessment, coordination of patient care, interpretation of data (laboratory data, radiology data, and respiratory data), review of patient's medical records, medical consultation and documentation of patient care. Procedures included in critical care time: Procedures excluded from critical care time:
[2017-06-11 15:21] LABS: Basophils % 0.4 %; Eosinophils # 0.1 K/mcL (0.0-0.6); Eosinophils % 0.6 %; Hematocrit 32.2 % (37.5-50.1); Hemoglobin 9.8 g/dL (12.9-16.9); Immature Granulocytes % 0.4 % (0-4); Lymphocytes # 0.7 K/mcL (0.6-4.6); Lymphocytes % 6.3 %; Mean Corpuscular HGB Conc 30.4 g/dL (31.6-35.5); Mean Corpuscular Hemoglobin 27.1 pg (28.0-33.3); Mean Corpuscular Volume 89.2 fL (83.0-100.0); Mean Platelet Volume 10.2 fL (9.4-12.4); Monocytes # 1.2 K/mcL (0.0-1.3); Monocytes % 11.1 %; Neutrophils # 8.6 K/mcL (1.6-8.9); Platelet Count 304 K/mcL (140-400); Red Blood Count 3.61 M/mcL (4.19-5.50); Red Cell Distribution Width 17.2 % (11.5-14.5); Segmented Neutrophils % 81.2 %
[2017-06-11 15:30] LABS: INR 1.3; Prothrombin Time 14.2 Seconds (9.4-12.1)
[2017-06-11 15:35] LABS: Activated Partial Thrombo Time 33.5 Seconds (26.0-36.0)
[2017-06-11 15:37] LABS: Albumin 2.5 g/dL (3.5-5.0); Albumin/Globulin Ratio 0.6 (1.1-2.2); Bilirubin,Total 0.9 mg/dL (0.2-1.2); Calcium 9.7 mg/dL (8.6-10.8); Globulin 4.5 g/dL (2.4-3.5); Potassium 4.6 mEq/L (3.5-4.5)
[2017-06-11] MEDS ORDERED: Bumetanide 1 MG/4 ML VIAL IVP ONE (16:19)
[2017-06-11] MEDS ORDERED: Naloxone 0.4 MG/ML INJ IVP PRN ×2 (17:08)
[2017-06-11] MEDS ORDERED: Ondansetron ODT 4 MG TAB.RAPDIS SL PRN (17:47)
[2017-06-11] MEDS ORDERED: Nitroglycerin 0.4 MG TAB.SUBL SL PRN (17:47)
--- NOTE | 2017-06-11 21:01 | Internal Med History&Physical ---
Date of Encounter: 06/11/17 Time of Encounter: 20:24 Assessment and Plan (1) Anasarca Current visit: Yes Status: Acute Patient has generalized edema from the waist downward as well as his upper extremities, the left worse than the right. This may be coming from multiple factors including congestive heart failure, chronic kidney disease, chronic anemia, ischemic cardiomyopathy and lack of Lasix at the ECF for the past few days because of hypotension. IV Lasix was given by the squad. IV Bumex was started in the ER. His are taking spironolactone. For some reason he has not been taking his Imdur that will be restarted. He is not having any cardiac type chest pain or palpitations suggesting angina. He has a mildly chronically elevated troponin I doubt that he has had an acute NH. We will watch his urine output carefully. He has an indwelling Mehta catheter now because of difficulties with urination because of the edema of the penis and scrotum, and he chronically has urinary incontinence and retention because of the BPH. He recently had thyroid functions tested and Synthroid was adjusted upward. (2) Acute congestive heart failure Current visit: Yes Status: Acute Increased pulmonary vasculature on chest x-ray, elevated BNP (but it is always elevated) and known ischemic cardiomyopathy. He has not been adequately diuresed at ECF because of hypotension. We will follow this, IV Bumex and discussion as above. I confirmed his CODE STATUS as DNR CCA, no intubation or CPR or defibrillation. Qualifiers: Congestive heart failure type: combined Qualified Code(s): I50.41 - Acute combined systolic (congestive) and diastolic (congestive) heart failure (3) History of CVA (cerebrovascular accident) Current visit: No Status: Chronic Previous history of CVA and gait abnormality. Chronically he has generalized weakness throughout but I do not think that he has had any recurrence of CVA. (4) Chronic kidney disease (CKD) Current visit: Yes Status: Chronic History chronic kidney disease and his creatinine is stable. He chronically has anemia as well and has Aranesp injection every other week. We will be following his creatinine as we are trying to diurese him. Qualifiers: Chronic kidney disease stage: stage 3 (moderate) Qualified Code(s): N18.3 - Chronic kidney disease, stage 3 (moderate) (5) Cardiomyopathy, ischemic Current visit: Yes Status: Chronic History of ischemic cardiomyopathy with ejection fraction of 30% on last echo done just last month. Congestive heart failure as above likely systolic as well as diastolic. No obvious angina at this point. (6) Paroxysmal atrial fibrillation Current visit: Yes Status: Chronic Paroxysmal atrial fibrillation. He is in sinus rhythm currently. He is anticoagulated with Xarelto. He is rate controlled. He also has a pacer defibrillator. (7) Hypertension Current visit: Yes Status: Chronic Patient has history of hypertension chronically. He has had hypotension in the [facility]. His blood pressure on admission to the ER was 123 systolic. We will follow closely. Because of his increased diuresis intravenously. Qualifiers: Hypertension type: essential hypertension Qualified Code(s): I10 - Essential (primary) hypertension (8) Hypothyroidism Current visit: No Status: Chronic History chronic hypothyroidism. During his last visit his TSH was elevated and his Synthroid was bumped up to the next higher dose. Qualifiers: Hypothyroidism type: unspecified Qualified Code(s): E03.9 - Hypothyroidism , unspecified (9) Presence of stent in coronary artery in patient with coronary artery disease Current visit: No Status: Chronic Known history of CAD and ischemic cardiopathy. No angina. CHF as discussed above (10) Chronic anemia Current visit: No Status: Chronic Chronic anemia. Part of this is iron deficiency anemia as well as chronic kidney disease. He was seen by Dr. Muhammad his toxicology supervisor in the past month and felt that he was to physically fragile to undergo upper and lower endoscopy and recommended treating anemia with transfusion as needed. He takes Aranesp every 2 weeks. (11) Elevated LFTs Current visit: No Status: Acute He had mildly elevated liver functions on last hospitalization. We felt this was likely due to passive venous congestion. It has not worsened. However his bilirubin has improved and is normalized. He has CT scan which did involve his liver at that visit. I suspect this is due to his fluid overload/venous congestion/CHF and will follow. He had negative workup for hepatitis. (12) BPH w urinary obs/LUTS Current visit: No Status: Chronic History of BPH and urine retention as well as urinary incontinence and urgency. With his extremely swollen penis and scrotum and difficulty with urination we have elected to insert an indwelling Mehta catheter to measure his urine and also help empty his bladder. (13) Decubitus ulcer of buttock, stage 2 Current visit: Yes Status: Acute Superficial decubitus and redness in the sacral area and upper bilateral buttock areas and now covered with Allevyn. Previously it was open and then healed during his last visit. The area is now macerated and open and small areas. Qualifiers: Laterality: unspecified laterality Qualified Code(s): L89.302 - Pressure ulcer of unspecified buttock, stage 2 (14) Blister of left heel Current visit: Yes Status: Acute The day he was discharged from the hospital he had about a 2 cm blood blister on the left heel. It is still present. Tiny bit of drainage of blood noted now. We are floating his heel. Qualifiers: Encounter type: subsequent encounter Qualified Code(s): S90.822D - Blister (nonthermal), left foot, subsequent encounter (15) DVT prophylaxis Current visit: No Status: Inactive He currently takes Xarelto and will not need DVT prophylaxis. Internal Medicine - H&P: HPI Chief complaint: I got so weak and I am swollen Admitted From: Emergency Dept Plans for Post Hospital Care: Transfer Shelter Facility History of present illness: Mr. Dorado is a 86 year old male with known history of paroxysmal atrial fibrillation, implanted pacer defibrillator, cardiomyopathy with 30% ejection fraction and who was admitted at [facility] and subsequently to a swing bed last month with acute congestive heart failure, chronic kidney disease with exacerbation and frequent falling. He was transferred to the emergency room from [facility] and [facility] with a history of increase in edema, dyspnea and became hypoxic. I was told that they have been having to hold some of his Lasix doses because of hypotension. He states his weight was 183 pounds/83 kg at the [facility], up from his baseline at last discharge of 78 kg. Patient denies any cardiac type chest pain, palpitation, irregular heartbeat sensation. No nausea or vomiting. He has been having difficulties with urination because his penis and scrotum are very swollen and it is difficult for him to use a urinal. He has been incontinent of urine. His bowels have been moving fairly good by his history. It was reported that the squad gave him Lasix 80 mg once as well as Solu-Medrol 125 once and a DuoNeb while in route. In the ER he was given Bumex 1 mg IV. He was found to have congestive heart failure on his chest x-ray, elevated BNP, elevated but stable creatinine, escalating liver functions and elevated troponin. Past Med Surg Social Fam HX - Past Medical History Medical history: atrial fibrillation (Paroxysmal atrial fibrillation. He has a pacer defibrillator.), cardiomyopathy (His last echocardiogram showed 30% ejection fraction), CHF, CVA (CVA with residual gait abnormality and balance problems. Typically uses a walker when ambulatory), hyperlipidemia, hypertension, myocardial infarction, renal disease, thyroid disease, TIA, other (Chronic anemia, likely due to his chronic kidney disease. He gets an injection of Aranesp every 2 weeks. 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 He was recently in acute and swing bed at [facility] the transfer to [facility] and Care [facility] for ongoing fdc care - Family History Father Living Status: Hx Family Cardiac Disorders: Yes (Heart disease, history of passing out a lot) Mother Living Status: Hx Family Cardiac Disorders: Yes (History of angina and CVA) Internal Medicine - H&P: Meds Carvedilol [Coreg] 3.125 mg PO BIDWM 02/19/15 [History] Tamsulosin [Flomax] 0.4 mg PO HS 02/19/15 [History] Albuterol Sulfate [Albuterol Inhaler] 2 inh IH Q4HR PRN 01/30/16 [History] Atorvastatin Calcium [Lipitor] 80 mg PO DAILY 01/30/16 [History] Finasteride [Proscar] 5 mg PO DAILY 01/30/16 [History] Multivitamin [Multi-Day Vitamins] 1 tab PO DAILY 01/30/16 [History] Nitroglycerin [Nitrostat] 0.4 mg SL Q5-6MIN PRN 01/30/16 [History] Amiodarone [Cordarone] 200 mg PO DAILY 05/07/17 [History] Aspirin [Lo-Dose Aspirin EC] 81 mg PO DAILY 05/07/17 [History] Furosemide [Lasix] 40 mg PO BIDWM 05/07/17 [History] Levothyroxine [Synthroid] 75 mcg PO DAILY@0630 #30 tablet 05/08/17 [Rx] Docusate [Colace] 100 mg PO BIDWM capsule 05/24/17 [Rx] Ferrous Sulfate 325 mg PO BIDWM tablet 05/24/17 [Rx] Lactulose 10 gm PO BID udc 05/24/17 [Rx] Omeprazole [PriLOSEC] 20 mg PO DAILY@0630 capsule. 05/24/17 [Rx] Ondansetron ODT [Zofran ODT] 4 mg SL Q6HR PRN tab.rapdis 05/24/17 [Rx] Rivaroxaban [Xarelto] 10 mg PO 1700 tablet 05/24/17 [Rx] Cholecalciferol (Vitamin D3) [Vitamin D] 50,000 unit PO AD 06/11/17 [History] Lactobacillus Combo No.11 [Probiotic] 2 each PO BID 06/11/17 [History] Melatonin [Melatin] 3 mg PO HS 06/11/17 [History] Spironolactone [Aldactone] 12.5 mg PO DAILY 06/11/17 [History] 3 Allergy/AdvReac Type Severity Reaction Status Date / Time Penicillins Allergy Hives Verified 05/07/17 00:15 - Constitutional Constitutional: lethargy, weakness, no fever(s) Additional comments: He states he has not been getting out of bed for therapy. He has not been able to walk lately. - EENT Eyes: no loss of vision Ears: no ear discharge, no ear pain Nose, mouth and throat: no dry mouth, no neck pain, no sore throat - Cardiovascular Cardiovascular ROS IM: dyspnea, edema, no chest pain, no irregular heart rhythm , no orthopnea, no syncope - Respiratory Respiratory: dyspnea, dyspnea on exertion, wheezing, no chest congestion - Gastrointestinal Gastrointestinal: no abdominal pain, no change in bowel habits, no constipation , no diarrhea, no hematochezia, no melena, no nausea - Genitourinary Genitourinary ROS male: as per HPI ( he has been having generalized edema of the penis and scrotum ), scrotal swelling (Scrotal swelling from edema), urinary incontinence - Musculoskeletal Musculoskeletal ROS IM: muscle weakness (Generalized muscle weakness. Inability to stand. Denies any localizing or lateralizing weakness such as CVA) - Neurological Neurological ROS: weakness (Generalized weakness and inability to stand.), no dizziness, no focal weakness, no loss of vision - Psychiatric Psychiatric: no behavioral changes, no suicidal ideation, no visual hallucinations - Constitutional Vitals: Temp Pulse Resp BP Pulse Ox 97.4 F L 74 16 130/78 96 06/11/17 16:37 06/11/17 16:37 06/11/17 16:58 06/11/17 16:58 06/11/17 16:37 General appearance: Present: cachectic, A&O X 3, no acute distress (When lying in bed he is comfortable.), answers questions appropriately - Eye Eye exam: Present: sclera anicteric - ENT ENT exam: Present: normal external ear exam, normal oropharynx, TM's normal bilaterally - Neck Neck exam general surgery: Absent: lymphadenopathy, tenderness, nuchal rigidity , thyromegaly - Respiratory Additional comments: Decreased breath sounds bilaterally. Crackles heard at both bases, left worse than right. He is able to lie at 45 degree angle without respiratory distress - Cardiovascular Cardiovascular exam: Present: RRR, +S1, +S2, systolic murmur (2 to 3/6 systolic murmur heard best at the apex) - GI/Abdominal GI/Abdominal exam: Present: soft. Absent: guarding, hepatomegaly, mass, rebound , rigid, splenomegaly, tenderness - Extremities Exam Extremities exam: Absent: calf tenderness, tenderness Additional comments: He has pitting edema from the waist and groin area bilaterally to his toes, including his penis and scrotum are markedly edematous and barely able to see the way. His left arm is greater than his right with edema. It is now starting to have some wrinkles. No localizing tenderness or skin breakdown. ( He previously had an edema stocking on the left upper extremity). His right great toe shows a small blood blister on the tip. His left heel shows 2.5 cm blood blister intact. Left ankle area shows reddened but closed area near the lateral malleolus. Protective dressing in place. Sacral area shows generalized redness, some mild macerated skin with mild scattered first and second degree areas. It is covered with Allevyn. Midline spine has no tenderness nor skin breakdown. - Back Exam Back exam: Absent: CVA tenderness (L), CVA tenderness (R), paraspinal tenderness , rash noted, vertebral tenderness - Neurological Exam Neurological exam: Present: CN II-XII intact, no focal deficits (No obvious focal deficits neurologically but harder by weight because he is to weak to stand or do full musculoskeletal examination for strength). Absent: speech deficit - Psychiatric Psychiatric exam: Present: normal affect - Skin Additional comments: His right great toe shows a small blood blister on the tip. His left heel shows 2.5 cm blood blister intact. Left ankle area shows reddened but closed area near the lateral malleolus. Protective dressing in place. Sacral area shows generalized redness, some mild macerated skin with mild scattered first and second degree areas. It is covered with Allevyn. Midline spine has no tenderness nor skin breakdown. Internal Med - H&P Results - Labs CBC & Chem 7: 06/11/17 13:13 06/11/17 13:13 Labs: Labs were reviewed. Troponin elevated 0.22, he chronically has mildly elevated troponin levels. Transaminases continue to increase from 115 now up to 184, but bilirubin down from 1.9 to 0.9. BNP 2940, down from 3137 on last admission. His creatinine is basically stable. His potassium is elevated at 4.9, he has been getting some spironolactone at the [facility] - EKG Data EKG comments: 06/11/17 21:30 EKG shows first-degree AV block. Marked left axis deviation. Right bundle branch block. Not particularly different from his baseline - Diagnostic Studies Chest x-ray Additional comments: Chest x-ray again shows increased pulmonary vasculature, cephalization of pulmonary vasculature and haziness at both bases suggestive of pleural effusions. To me it looks slightly worse than last time.
[2017-06-11] MEDS: Lactulose Oral Soln 20 GM/30 ML UDC PO SCH (22:01)
[2017-06-11] MEDS: Melatonin 3 MG TABLET PO SCH (22:01)
[2017-06-11] MEDS: Lactobacillus 1 EACH CAP.SPRINK PO SCH (22:01)
[2017-06-11] MEDS: Bumetanide 1 MG/4 ML VIAL IVP SCH (22:54)
[2017-06-12 06:00] LABS: Basophils % 0.1 %; Hematocrit 26.9 % (37.5-50.1); Immature Granulocytes % 0.4 % (0-4); Lymphocytes # 0.2 K/mcL (0.6-4.6); Lymphocytes % 1.9 %; Mean Corpuscular HGB Conc 31.2 g/dL (31.6-35.5); Mean Corpuscular Volume 86.5 fL (83.0-100.0); Mean Platelet Volume 9.8 fL (9.4-12.4); Monocytes # 0.3 K/mcL (0.0-1.3); Monocytes % 2.4 %; Neutrophils # 10.7 K/mcL (1.6-8.9); Platelet Count 254 K/mcL (140-400); Red Blood Count 3.11 M/mcL (4.19-5.50); Segmented Neutrophils % 95.2 %
[2017-06-12 06:05] LABS: Hemoglobin 8.4 g/dL (12.9-16.9)
[2017-06-12 06:11] LABS: Calcium 9.2 mg/dL (8.6-10.8); Potassium 4.8 mEq/L (3.5-4.5)
[2017-06-12] MEDS ORDERED: Furosemide 40 MG TABLET PO SCH (08:00)
--- NOTE | 2017-06-12 08:23 | Internal Med Progress Note ---
Date of Encounter: 06/12/17 Time of Encounter: 08:27 - Assessment and plan (1) Anasarca Current Visit: Yes Status: Acute Assessment and plan: His examination is not much changed from late last night. Certainly no worse. His weight is down about 2 kg according to the bed scales. Pulmonary status is improved. Continue with the diuresis and fluid restriction. So far blood pressure okay. We will try to keep him moving and get him up into a chair today. (2) Acute congestive heart failure Current Visit: Yes Status: Acute Assessment and plan: His pulmonary examination is better. He does not have symptoms of wheezing or dyspnea. monitor and storage bin tender continues to show normal sinus rhythm. Vitals are stable. Troponin is decreased and unlikely that he had an acute [place]. His BNP is a bit higher. He always has an elevated troponin and BNP. 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 (4) Chronic kidney disease (CKD) Current Visit: Yes Status: Chronic Assessment and plan: His creatinine is actually down a bit today. He chronically has creatinine in the 2-3 range. Qualifiers: Chronic kidney disease stage: stage 3 (moderate) Qualified Code(s): N18.3 - Chronic kidney disease, stage 3 (moderate) (5) Cardiomyopathy, ischemic Current Visit: Yes Status: Chronic (6) Paroxysmal atrial fibrillation Current Visit: Yes Status: Chronic Assessment and plan: Monitor shows normal sinus rhythm. (7) Hypertension Current Visit: Yes Status: Chronic Assessment and plan: Blood pressure under good control. Qualifiers: Hypertension type: essential hypertension Qualified Code(s): I10 - Essential (primary) hypertension (8) Hypothyroidism Current Visit: No Status: Chronic Qualifiers: Hypothyroidism type: unspecified Qualified Code(s): E03.9 - Hypothyroidism , unspecified (9) Presence of stent in coronary artery in patient with coronary artery disease Current Visit: No Status: Chronic Assessment and plan: No angina noted. Troponin decreasing. (10) Chronic anemia Current Visit: No Status: Chronic (11) Elevated LFTs Current Visit: No Status: Acute (12) BPH w urinary obs/LUTS Current Visit: No Status: Chronic (13) Decubitus ulcer of buttock, stage 2 Current Visit: Yes Status: Acute Assessment and plan: I did not reevaluate the skin lesions since late last night. Consultation requested of wound clinic. Qualifiers: Laterality: unspecified laterality Qualified Code(s): L89.302 - Pressure ulcer of unspecified buttock, stage 2 (14) Blister of left heel Current Visit: Yes Status: Acute Qualifiers: Encounter type: subsequent encounter Qualified Code(s): S90.822D - Blister (nonthermal), left foot, subsequent encounter (15) DVT prophylaxis Current Visit: No Status: Chronic - Subjective Interval history: Patient states that he rested well through the night. He did awaken at 4 AM and watched some TV. He says his breathing is better, he is no longer wheezing. Denies any cardiac type chest pain or palpitations. No dyspnea at rest. He ate all of his breakfast. Denies any abdominal pain. - Constitutional Vitals: Temp Pulse Resp BP Pulse Ox 97.8 F 69 16 113/61 99 06/12/17 07:31 06/12/17 07:31 06/12/17 07:31 06/12/17 07:31 06/12/17 07:31 General appearance: Present: cachectic, A&O X 3, no acute distress (When lying in bed he is comfortable.), answers questions appropriately - Respiratory Respiratory exam: Present: decreased breath sounds (Decreased breath sounds particularly the right base. No crackles or wheezes heard today). Absent: respiratory distress, wheezes - Cardiovascular Cardiovascular exam: Present: RRR, +S1, +S2, systolic murmur (3/6 systolic murmur heard best at the apex) - GI/Abdominal GI/Abdominal exam: Present: soft. Absent: tenderness - Extremities Exam Extremities exam: Absent: calf tenderness Additional comments: Still has pitting edema from the groin and thighs downward. No worse at this point. No open areas or oozing. Left upper extremity seems a bit better. Still has edema in the skin in the triceps area. - Skin Additional comments: I did not evaluate all of the skin lesions today. No new ones seen on cursory exam. Internal Medicine: Result - Labs CBC & Chem 7: 06/12/17 05:30 06/12/17 05:30 Labs: Short CBC 06/12/17 Range/Units 05:30 WBC 11.2 H (4.3-11.1) K/mcL Hgb 8.4 L (12.9-16.9) g/dL Hct 26.9 L (37.5-50.1) % Plt Count 254 (140-400) K/mcL Neutrophils # 10.7 H (1.6-8.9) K/mcL BMP 06/12/17 05:30 Sodium 140 Potassium 4.8 H Chloride 105 Carbon Dioxide 26 BUN 65 H Creatinine 2.15 H Glucose 156 H Calcium 9.2 Cardiac Enzymes 06/12/17 Range/Units 05:30 Troponin I 0.17 H* (0-0.03) ng/mL Hemoglobin is a bit lower but not unusual for him. His creatinine is improved. Troponin is lower. - ABG Interpretation ABG results: PT/INR, D-dimer PT 14.2 Seconds (9.4-12.1) H 06/11/17 13:13 - VTE Reasons for not Prescribing Prophylaxis: Not indicated-Anticoagulated or INR therapeutic Consult Discharge Plan - Plan Referrals: Rose Salcedo MD [Primary Care Provider] -
[2017-06-12] MEDS: Spironolactone 25 MG TABLET PO SCH (08:53)
[2017-06-12] MEDS: Isosorbide MONOnitrate (24 HR) 30 MG TAB.ER.24H PO SCH (08:53)
[2017-06-12] MEDS: Lactobacillus 1 EACH CAP.SPRINK PO SCH ×2 (08:53→21:39)
[2017-06-12] MEDS: *HR* Amiodarone 200 MG TABLET PO SCH (08:54)
[2017-06-12] MEDS: Aspirin Enteric Coated 81 MG Tablet PO SCH (08:54)
[2017-06-12] MEDS: Bumetanide 1 MG/4 ML VIAL IVP SCH ×2 (08:54→18:18)
[2017-06-12] MEDS: Multivit/Ca/Min/Fe/FA 1 TAB TABLET PO SCH (08:54)
[2017-06-12] MEDS: Finasteride 5 MG TABLET PO SCH (08:54)
[2017-06-12] MEDS: Lactulose Oral Soln 20 GM/30 ML UDC PO SCH ×2 (08:55→21:39)
[2017-06-12] MEDS: *HR* Rivaroxaban 10 MG TABLET PO SCH (18:18)
[2017-06-12] MEDS: Melatonin 3 MG TABLET PO SCH (21:39)
[2017-06-13 05:22] LABS: Basophils % 0.3 %; Hematocrit 25.8 % (37.5-50.1); Immature Granulocytes % 0.3 % (0-4); Lymphocytes # 0.5 K/mcL (0.6-4.6); Lymphocytes % 4.2 %; Mean Corpuscular Hemoglobin 26.9 pg (28.0-33.3); Mean Corpuscular Volume 86.9 fL (83.0-100.0); Mean Platelet Volume 9.2 fL (9.4-12.4); Monocytes # 1.1 K/mcL (0.0-1.3); Monocytes % 9.5 %; Platelet Count 225 K/mcL (140-400); Red Blood Count 2.97 M/mcL (4.19-5.50); Red Cell Distribution Width 17.1 % (11.5-14.5); Segmented Neutrophils % 85.7 %
[2017-06-13 05:37] LABS: Calcium 8.9 mg/dL (8.6-10.8); Potassium 4.3 mEq/L (3.5-4.5)
[2017-06-13] MEDS: Lactulose Oral Soln 20 GM/30 ML UDC PO SCH ×2 (08:57→20:55)
[2017-06-13] MEDS: Lactobacillus 1 EACH CAP.SPRINK PO SCH ×2 (08:58→20:54)
[2017-06-13] MEDS: Bumetanide 1 MG/4 ML VIAL IVP SCH ×2 (08:58→17:55)
[2017-06-13] MEDS: Multivit/Ca/Min/Fe/FA 1 TAB TABLET PO SCH (08:58)
[2017-06-13] MEDS: Aspirin Enteric Coated 81 MG Tablet PO SCH (08:58)
[2017-06-13] MEDS: Finasteride 5 MG TABLET PO SCH (08:58)
[2017-06-13] MEDS: Isosorbide MONOnitrate (24 HR) 30 MG TAB.ER.24H PO SCH (08:58)
[2017-06-13] MEDS: Spironolactone 25 MG TABLET PO SCH (08:58)
[2017-06-13] MEDS: *HR* Amiodarone 200 MG TABLET PO SCH (08:59)
--- NOTE | 2017-06-13 12:19 | Internal Med Progress Note ---
Date of Encounter: 06/13/17 Time of Encounter: 12:14 - Assessment and plan (1) Anasarca Current Visit: Yes Status: Acute Assessment and plan: Still has generalized anasarca/edema but is down about 12 pounds or more. Continue with current regimen. We will watch his creatinine. He is not having any hypotension. Continue aggressive diuresis. (2) Acute congestive heart failure Current Visit: Yes Status: Acute Assessment and plan: He is having no angina. His lungs are clear. No obvious congestive heart failure signs today except for his lower extremity edema. Qualifiers: Congestive heart failure type: combined Qualified Code(s): I50.41 - Acute combined systolic (congestive) and diastolic (congestive) heart failure (3) History of CVA (cerebrovascular accident) Current Visit: No Status: Chronic Assessment and plan: No signs of recurrence of CVA. (4) Chronic kidney disease (CKD) Current Visit: Yes Status: Chronic Assessment and plan: Chronic kidney disease with increasing creatinine with diuresis. We will follow. Continue current regimen. Qualifiers: Chronic kidney disease stage: stage 3 (moderate) Qualified Code(s): N18.3 - Chronic kidney disease, stage 3 (moderate) (5) Cardiomyopathy, ischemic Current Visit: Yes Status: Chronic Assessment and plan: No angina or CHF findings today. (6) Paroxysmal atrial fibrillation Current Visit: Yes Status: Chronic Assessment and plan: Appears to be in normal sinus rhythm (7) Hypertension Current Visit: Yes Status: Chronic Assessment and plan: Blood pressure is under good control. No hypotension from his diuresis yet. Qualifiers: Hypertension type: essential hypertension Qualified Code(s): I10 - Essential (primary) hypertension (8) Hypothyroidism Current Visit: No Status: Chronic Qualifiers: Hypothyroidism type: unspecified Qualified Code(s): E03.9 - Hypothyroidism , unspecified (9) Presence of stent in coronary artery in patient with coronary artery disease Current Visit: No Status: Chronic (10) Chronic anemia Current Visit: No Status: Chronic Assessment and plan: History of chronic anemia. His count dropped a little bit more. He is due for Aranesp tomorrow. (11) Elevated LFTs Current Visit: No Status: Acute (12) BPH w urinary obs/LUTS Current Visit: No Status: Chronic Assessment and plan: Continued with the Mehta catheter because of excessive swelling at the penis and scrotum, his inability to urinate properly, history of urinary retention, and need to watch his urine output closely. (13) Decubitus ulcer of buttock, stage 2 Current Visit: Yes Status: Acute Assessment and plan: Follow-up by wound clinic. Qualifiers: Laterality: unspecified laterality Qualified Code(s): L89.302 - Pressure ulcer of unspecified buttock, stage 2 (14) Blister of left heel Current Visit: Yes Status: Acute Assessment and plan: Followed by wound clinic. Qualifiers: Encounter type: subsequent encounter Qualified Code(s): S90.822D - Blister (nonthermal), left foot, subsequent encounter (15) DVT prophylaxis Current Visit: No Status: Chronic - Subjective Interval history: I think I feel stronger today. I can help the nurses when I am being moved. Patient denies chest pain, palpitation, GI or symptoms. He would like to be drinking more water than his 1000 mL restriction. He states that his bottom end is sore. - Constitutional Vitals: Temp Pulse Resp BP Pulse Ox 97.6 F 58 16 101/54 99 06/13/17 11:55 06/13/17 11:55 06/13/17 11:55 06/13/17 11:55 06/13/17 11:55 General appearance: Present: A&O X 3, no acute distress, answers questions appropriately Exam: Patient is sitting up in a chair with his feet propped up. He is in no distress. He looks much better, more alert and stronger today - Respiratory Respiratory exam: Present: decreased breath sounds, CTAB Additional comments: Diminished breath sounds but clear. No respiratory distress. No wheezing. - Cardiovascular Cardiovascular exam: Present: RRR, +S1, +S2, systolic murmur (2/6 systolic murmur at the apex) - Extremities Exam Additional comments: Patient has less edema in the feet and shins. Still has pitting in the lateral thighs. His arms look better. Still has some edema in the triceps area but better - Skin Additional comments: I did not reevaluate his skin. He was seen by the wound clinic and adjustments made. Internal Medicine: Result - Labs CBC & Chem 7: 06/13/17 05:20 06/13/17 05:20 Labs: Short CBC 06/13/17 Range/Units 05:20 WBC 11.7 H (4.3-11.1) K/mcL Hgb 8.0 L (12.9-16.9) g/dL Hct 25.8 L (37.5-50.1) % Plt Count 225 (140-400) K/mcL Neutrophils # 10.0 H (1.6-8.9) K/mcL BMP 06/13/17 05:20 Sodium 140 Potassium 4.3 Chloride 104 Carbon Dioxide 29 BUN 68 H Creatinine 2.36 H Glucose 121 H Calcium 8.9 His hemoglobin is down just a bit more. Does have a history of chronic anemia. His creatinine is up a bit to 2.36, not unusual for him. Potassium is normal. - ABG Interpretation ABG results: PT/INR, D-dimer PT 14.2 Seconds (9.4-12.1) H 06/11/17 13:13 - VTE Reasons for not Prescribing Prophylaxis: Not indicated-Anticoagulated or INR therapeutic Consult Discharge Plan - Plan Referrals: Rose Salcedo MD [Primary Care Provider] -
--- NOTE | 2017-06-13 16:06 | Electrocardiograph Report ---
[address] [address] Test Date: 2017-06-11 Pat Name: Amandeep Dorado Department: 2000 Room: 115 Gender: M [employer] Worker: : 1930 Requested By: Shital Pereyra Order Number: [id number] Reading MD: Luke Caldwell MD Measurements Intervals [place] Rate: 74 P: 62 [place]: 255 QRS: -71 QRSD: 136 T: 56 QT: 409 QTc: 437 Interpretive Statements SINUS RHYTHM WITH FIRST DEGREE AV BLOCK MARKED LEFT AXIS DEVIATION RIGHT BUNDLE BRANCH BLOCK Electronically Signed On 06-13-2017 16:05:01 EST by Luke Caldwell MD
[2017-06-13] MEDS: *HR* Rivaroxaban 10 MG TABLET PO SCH (17:55)
[2017-06-13] MEDS: Melatonin 3 MG TABLET PO SCH (20:55)
[2017-06-13] MEDS: hydrOXYzine pamoate 25 MG CAPSULE PO PRN (20:55)
[2017-06-14] MEDS ORDERED: traMADol 50 MG TABLET PO PRN (03:27)
--- NOTE | 2017-06-14 06:57 | Internal Med Progress Note ---
Date of Encounter: 06/15/17 Time of Encounter: 06:57 - Assessment and plan (1) Anasarca Status: Acute Assessment and plan: His swelling is getting better but slowly. A gentle bounce between his IV Lasix and drying him out too much. He is feeling better. Continue the same. Watch his renal function. (2) Acute congestive heart failure Status: Acute Assessment and plan: She has been cleared of his congestive heart failure. No angina noted. Lungs are clear. Qualifiers: Congestive heart failure type: combined Qualified Code(s): I50.41 - Acute combined systolic (congestive) and diastolic (congestive) heart failure (3) History of CVA (cerebrovascular accident) Status: Chronic (4) Chronic kidney disease (CKD) Status: Chronic Assessment and plan: We are following his renal function because of his IV diuretic. We have been holding his fluids as well. Qualifiers: Chronic kidney disease stage: stage 3 (moderate) Qualified Code(s): N18.3 - Chronic kidney disease, stage 3 (moderate) (5) Cardiomyopathy, ischemic Status: Chronic (6) Paroxysmal atrial fibrillation Status: Chronic (7) Hypertension Status: Chronic Assessment and plan: Blood pressures have been under good control. Qualifiers: Hypertension type: essential hypertension Qualified Code(s): I10 - Essential (primary) hypertension (8) Hypothyroidism Status: Chronic Qualifiers: Hypothyroidism type: unspecified Qualified Code(s): E03.9 - Hypothyroidism , unspecified (9) Presence of stent in coronary artery in patient with coronary artery disease Status: Chronic (10) Chronic anemia Status: Chronic (11) Elevated LFTs Status: Acute (12) BPH w urinary obs/LUTS Status: Chronic (13) Decubitus ulcer of buttock, stage 2 Status: Acute Assessment and plan: He is trying to avoid sitting or lying to much. Qualifiers: Laterality: unspecified laterality Qualified Code(s): L89.302 - Pressure ulcer of unspecified buttock, stage 2 (14) Blister of left heel Status: Acute Assessment and plan: He has been evaluated by the wound clinic Qualifiers: Encounter type: subsequent encounter Qualified Code(s): S90.822D - Blister (nonthermal), left foot, subsequent encounter (15) DVT prophylaxis Status: Chronic - Subjective Interval history: Last night patient complained of pain in his feet and Tylenol was helpful. He does not like the protective boots for his heel decubiti. He denied any calf tenderness. He denies any cardiac type chest pain. He thinks breathing is better. No significant dyspnea or cough. No abdominal pain. He thinks is getting better but slowly. - Constitutional Vitals: Temp Pulse Resp BP Pulse Ox 97.7 F 60 15 101/59 94 06/14/17 04:00 06/14/17 04:00 06/14/17 04:00 06/14/17 04:00 06/14/17 04:00 General appearance: Present: A&O X 3, no acute distress, answers questions appropriately - Respiratory Additional comments: Diminished breath sounds bilaterally. Intermittent right upper lobe wheeze. No crackles. No respiratory distress. No orthopnea. - Cardiovascular Cardiovascular exam: Present: RRR, +S1, +S2, systolic murmur (2/6 systolic murmur heard best at the apex) - GI/Abdominal GI/Abdominal exam: Present: soft, no peritoneal signs. Absent: mass, tenderness - Extremities Exam Extremities exam: Absent: calf tenderness, pedal edema, tenderness Additional comments: He still has some edema in the skin in the triceps area bilaterally, but better. His left upper extremity overall is improved regarding edema. A sickly back to normal. Lower extremities still have some pitting in the skin in the lateral thighs and downward. Less so in the shins and feet. His protective boots are in place. - Skin Additional comments: I did not evaluate his skin lesions today Internal Medicine: Result - Labs CBC & Chem 7: 06/15/17 05:30 06/15/17 05:30 - ABG Interpretation ABG results: PT/INR, D-dimer PT 14.2 Seconds (9.4-12.1) H 06/11/17 13:13 - VTE Reasons for not Prescribing Prophylaxis: Not indicated-Anticoagulated or INR therapeutic Consult Discharge Plan - Plan Referrals: Rose Salcedo MD [Primary Care Provider] -
[2017-06-14] MEDS: Lactulose Oral Soln 20 GM/30 ML UDC PO SCH ×2 (08:58→21:32)
[2017-06-14] MEDS: Multivit/Ca/Min/Fe/FA 1 TAB TABLET PO SCH (08:59)
[2017-06-14] MEDS: Finasteride 5 MG TABLET PO SCH (08:59)
[2017-06-14] MEDS: Bumetanide 1 MG/4 ML VIAL IVP SCH ×2 (08:59→18:36)
[2017-06-14] MEDS: Isosorbide MONOnitrate (24 HR) 30 MG TAB.ER.24H PO SCH (08:59)
[2017-06-14] MEDS: Lactobacillus 1 EACH CAP.SPRINK PO SCH ×2 (08:59→21:30)
[2017-06-14] MEDS: Aspirin Enteric Coated 81 MG Tablet PO SCH (09:00)
[2017-06-14] MEDS: Spironolactone 25 MG TABLET PO SCH (09:00)
[2017-06-14] MEDS: *HR* Amiodarone 200 MG TABLET PO SCH (09:00)
[2017-06-14] MEDS: *HR* Rivaroxaban 10 MG TABLET PO SCH (18:37)
[2017-06-14] MEDS: Melatonin 3 MG TABLET PO SCH (21:31)
[2017-06-15] MEDS: hydrOXYzine pamoate 25 MG CAPSULE PO PRN (03:56)
[2017-06-15 05:35] LABS: Basophils # 0.1 K/mcL (0.0-0.2); Basophils % 0.5 %; Eosinophils # 0.1 K/mcL (0.0-0.6); Eosinophils % 0.5 %; Hematocrit 26.6 % (37.5-50.1); Hemoglobin 8.1 g/dL (12.9-16.9); Immature Granulocytes % 0.3 % (0-4); Lymphocytes # 0.4 K/mcL (0.6-4.6); Lymphocytes % 4.4 %; Mean Corpuscular HGB Conc 30.5 g/dL (31.6-35.5); Mean Corpuscular Hemoglobin 26.3 pg (28.0-33.3); Mean Corpuscular Volume 86.4 fL (83.0-100.0); Mean Platelet Volume 9.8 fL (9.4-12.4); Monocytes # 0.8 K/mcL (0.0-1.3); Monocytes % 8.9 %; Platelet Count 236 K/mcL (140-400); Red Blood Count 3.08 M/mcL (4.19-5.50); Red Cell Distribution Width 17.1 % (11.5-14.5); Segmented Neutrophils % 85.4 %
[2017-06-15 05:50] LABS: Calcium 8.9 mg/dL (8.6-10.8)
[2017-06-15] MEDS: Multivit/Ca/Min/Fe/FA 1 TAB TABLET PO SCH (08:51)
[2017-06-15] MEDS: Spironolactone 25 MG TABLET PO SCH (08:51)
[2017-06-15] MEDS: Lactulose Oral Soln 20 GM/30 ML UDC PO SCH (08:52)
[2017-06-15] MEDS: Finasteride 5 MG TABLET PO SCH (08:52)
[2017-06-15] MEDS: *HR* Amiodarone 200 MG TABLET PO SCH (08:52)
[2017-06-15] MEDS: Lactobacillus 1 EACH CAP.SPRINK PO SCH (08:52)
[2017-06-15] MEDS: Aspirin Enteric Coated 81 MG Tablet PO SCH (08:52)
[2017-06-15] MEDS: Isosorbide MONOnitrate (24 HR) 30 MG TAB.ER.24H PO SCH (08:52)
[2017-06-15] MEDS: Bumetanide 1 MG/4 ML VIAL IVP SCH (08:53)
[2017-06-15 11:53] VITALS: BP 106/51
--- NOTE | 2017-06-15 16:35 | Discharge Summary ---
Date of Encounter: 06/15/17 Time of Encounter: 16:33 - Discharge Diagnosis (1) Anasarca Priority: Primary Status: Acute Comments: Patient was transferred to the ER and then to an acute bed because of anasarca. He has swelling of lower extremities up to low buttock and waistline. Both upper extremities were swollen particularly the left side. Apparently his Lasix had been held because of low blood pressures and he retained fluid. He has a history of chronic renal failure, anemia, ischemic cardiomyopathy. Having failed treatment in the shelter he was admitted to the hospital. He is showing some improvement with IV Lasix. We will continue the current course and try to get him back to his ADLs as he is very weak and unable to stand. He will be transferred to a swing bed. (2) Acute congestive heart failure Priority: Secondary Status: Acute Comments: On admission he may have had some congestive heart failure. Chronically he has elevated BNP as well as troponin. He did have some wheezing and respiratory problems and hypoxia. That all seems to be improved now. He did not have an acute MN. No dysrhythmia problems. He seems to be medically stable from a cardiac point of view at this time. Qualifiers: Congestive heart failure type: combined Qualified Code(s): I50.41 - Acute combined systolic (congestive) and diastolic (congestive) heart failure (3) History of CVA (cerebrovascular accident) Priority: Secondary Status: Chronic Comments: He is a prior history of a CVA and gait abnormality. No exacerbations during this hospital course. (4) Chronic kidney disease (CKD) Priority: Secondary Status: Chronic Comments: He has a history chronic kidney disease. Creatinine relatively stable. We are following his creatinine as we are using IV Bumex. Lasix apparently was not helpful. Continue to follow. Will maintain the same and his swing bed status as well. Qualifiers: Chronic kidney disease stage: stage 3 (moderate) Qualified Code(s): N18.3 - Chronic kidney disease, stage 3 (moderate) (5) Cardiomyopathy, ischemic Priority: Secondary Status: Chronic Comments: History of ischemic heart myopathy and chronically elevated BNP. No angina noted. (6) Paroxysmal atrial fibrillation Priority: Secondary Status: Chronic Comments: History of paroxysmal atrial fibrillation. He has been in normal sinus rhythm the entire stay. (7) Hypertension Priority: Secondary Status: Chronic Comments: He has a long-standing history of hypertension. He has been under adequate control. In the shelter he reportedly had low blood pressure. Has been relatively stable here. Qualifiers: Hypertension type: essential hypertension Qualified Code(s): I10 - Essential (primary) hypertension (8) Hypothyroidism Priority: Secondary Status: Chronic Qualifiers: Hypothyroidism type: unspecified Qualified Code(s): E03.9 - Hypothyroidism , unspecified (9) Presence of stent in coronary artery in patient with coronary artery disease Priority: Secondary Status: Chronic Comments: No angina noted. (10) Chronic anemia Priority: Secondary Status: Chronic Comments: He has a history of chronic anemia. Multiple etiologies may be chronic kidney disease, chronic medical problems, and he has iron deficiency. He is not a candidate for upper and lower endoscopies anymore. Seen by GI. We will follow. He receives Aranesp every 2 weeks. (11) Elevated LFTs Priority: Secondary Status: Acute Comments: Elevated liver functions occurred on his last hospital visit. He saw GI in no intervention was done. Negative workup for hepatitis. This does not seem to give him problems. Likely this is from chronic passive venous congestion. Will follow. (12) BPH w urinary obs/LUTS Priority: Secondary Status: Chronic Comments: Long-standing history of BPH and lower urinary symptoms with urinary retention as well as incontinence. During his hospital stay he has had a Mehta catheter because of the edema so severe in the penis and scrotum that he is unable to use the urinal and we need to follow his urine output closely. (13) Decubitus ulcer of buttock, stage 2 Priority: Secondary Status: Acute Comments: He is been seen by wound clinic for the macerated sacral and upper buttock areas. Qualifiers: Laterality: unspecified laterality Qualified Code(s): L89.302 - Pressure ulcer of unspecified buttock, stage 2 (14) Blister of left heel Priority: Secondary Status: Acute Comments: He had a blood blister on the left heel at time of discharge from his acute bed the last time he was at the hospital. We are trying to float his heels or use the boots. He has been followed by wound clinic. Qualifiers: Encounter type: subsequent encounter Qualified Code(s): S90.822D - Blister (nonthermal), left foot, subsequent encounter (15) DVT prophylaxis Priority: Secondary Status: Chronic - Discharge Medications Home Medications: Carvedilol [Coreg] 3.125 mg PO BIDWM 02/19/15 [History] Tamsulosin [Flomax] 0.4 mg PO HS 02/19/15 [History] Albuterol Sulfate [Albuterol Inhaler] 2 inh IH Q4HR PRN 01/30/16 [History] Atorvastatin Calcium [Lipitor] 80 mg PO DAILY 01/30/16 [History] Finasteride [Proscar] 5 mg PO DAILY 01/30/16 [History] Multivitamin [Multi-Day Vitamins] 1 tab PO DAILY 01/30/16 [History] Nitroglycerin [Nitrostat] 0.4 mg SL Q5-6MIN PRN 01/30/16 [History] Amiodarone [Cordarone] 200 mg PO DAILY 05/07/17 [History] Aspirin [Lo-Dose Aspirin EC] 81 mg PO DAILY 05/07/17 [History] Furosemide [Lasix] 40 mg PO BIDWM 05/07/17 [History] Levothyroxine [Synthroid] 75 mcg PO DAILY@0630 #30 tablet 05/08/17 [Rx] Docusate [Colace] 100 mg PO BIDWM capsule 05/24/17 [Rx] Ferrous Sulfate 325 mg PO BIDWM tablet 05/24/17 [Rx] Lactulose 10 gm PO BID udc 05/24/17 [Rx] Omeprazole [PriLOSEC] 20 mg PO DAILY@0630 capsule. 05/24/17 [Rx] Ondansetron ODT [Zofran ODT] 4 mg SL Q6HR PRN tab.rapdis 05/24/17 [Rx] Rivaroxaban [Xarelto] 10 mg PO 1700 tablet 05/24/17 [Rx] Cholecalciferol (Vitamin D3) [Vitamin D] 50,000 unit PO AD 06/11/17 [History] Lactobacillus Combo No.11 [Probiotic] 2 each PO BID 06/11/17 [History] Melatonin [Melatin] 3 mg PO HS 06/11/17 [History] Spironolactone [Aldactone] 12.5 mg PO DAILY 06/11/17 [History] Allergies/Adverse Reactions: 3 Allergy/AdvReac Type Severity Reaction Status Date / Time Penicillins Allergy Hives Verified 05/07/17 00:15 Date of admission: 06/12/17 01:18 Primary care physician: Rose Salcedo Discharging clinician: Dre Maldonado Anticipated date of discharge: 06/15/17 - Patient Status Disposition: Transfer Hospital Swing Bed Condition: Fair - Discharge Instructions Follow Up With: Rose Salcedo MD [Primary Care Provider] - Hospital course: Mr. Dorado is a 86 year old male Please see the discharge diagnoses above - Time Spent with Patient Total time spent providing and/or coordinating discharge services: - Constitutional Vitals: Temp Pulse Resp BP Pulse Ox 97.4 F L 61 16 106/51 95 06/15/17 11:52 06/15/17 11:52 06/15/17 11:52 06/15/17 11:52 06/15/17 11:52 General appearance: Present: A&O X 3, no acute distress, answers questions appropriately - Respiratory Respiratory exam: Present: CTAB - Cardiovascular Cardiovascular exam: Present: RRR, +S1, +S2, systolic murmur - Extremities Exam Additional comments: Edema of lower extremities. See the progress note. - VTE Reasons for not Prescribing Prophylaxis: Not indicated-Anticoagulated or INR therapeutic
== END 2017-06-15 11:55 | disposition other institution (70) | DRG 291 ==
LOC: EMEROOGRE 14:44 → INPGRE 14:44
PROVIDERS: ADMIT Family Medicine; ATTEND Family Medicine

== ENCOUNTER 2017-06-15 12:04 | Inpatient (IN) ==
[2017-06-15] MEDS ORDERED: Ondansetron ODT 4 MG TAB.RAPDIS SL PRN (12:31)
[2017-06-15] MEDS ORDERED: Nitroglycerin 0.4 MG TAB.SUBL SL PRN (12:31)
[2017-06-15] MEDS ORDERED: Naloxone 0.4 MG/ML INJ IVP PRN (12:37)
--- NOTE | 2017-06-15 14:48 | Internal Med Progress Note ---
Date of Encounter: 06/15/17 Time of Encounter: 14:48 - Assessment and plan (1) Physical deconditioning Current Visit: Yes Status: Acute Assessment and plan: He is still not back to his usual ADLs and state as he was when he left the hospital the last time. Therapy is working with him now in a swing bed and is barely able to stand for a while. Continue with PT and OT and supportive 24- hour nursing care. (2) History of CVA (cerebrovascular accident) Current Visit: No Status: Chronic (3) Anasarca Current Visit: Yes Status: Acute Assessment and plan: The severe swelling/fluid retention from nearly his waist downward is improving but slowly. A lot less edema in the arms. Urine output is doing fairly well but I like to see it be more aggressive and we will increase Bumex to 3 times a day. I am allowing him to have 1500 of mL of water now. (4) Chronic kidney disease (CKD) Current Visit: Yes Status: Chronic Assessment and plan: History of chronic kidney disease and creatinine is now proved to 0.17. I am going to bump up to 3 times a day Qualifiers: Chronic kidney disease stage: stage 3 (moderate) Qualified Code(s): N18.3 - Chronic kidney disease, stage 3 (moderate) (5) Hypertension Current Visit: Yes Status: Chronic Assessment and plan: Blood pressure is under adequate control. Qualifiers: Hypertension type: essential hypertension Qualified Code(s): I10 - Essential (primary) hypertension (6) Presence of stent in coronary artery in patient with coronary artery disease Current Visit: No Status: Chronic Assessment and plan: He is not having any cardiac angina or CHF currently. (7) Hx of congestive heart failure Current Visit: Yes Status: Chronic Assessment and plan: No history of acute congestive heart failure currently. (8) Recurrent falls Current Visit: No Status: Acute Assessment and plan: Recurring falls in his history and at risk for this to return. PT and OT are working with the patient now (9) Chronic anemia Current Visit: No Status: Chronic Assessment and plan: Chronic anemia may be from chronic disease or his chronic kidney disease. He is to get Aranesp every Saturday (10) Elevated LFTs Current Visit: Yes Status: Acute Assessment and plan: Chronically elevated liver functions. We will recheck later. Negative work up for hepatitis during last visit. 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 (11) Decubitus ulcer of buttock, stage 2 Current Visit: Yes Status: Acute Assessment and plan: Has been seen by wound clinic. Qualifiers: Laterality: unspecified laterality Qualified Code(s): L89.302 - Pressure ulcer of unspecified buttock, stage 2 - Subjective Interval history: Patient states that he feels better. Therapy was able to get him into the standing position for a while, but not able to walk. He is eating fairly well, he still wants his fluid restriction lifted or liberalized. He denies a cardiac arrest which were symptoms. He seems to be of good spirits. - Constitutional General appearance: Present: A&O X 3, no acute distress, answers questions appropriately - Respiratory Respiratory exam: Present: CTAB - Cardiovascular Cardiovascular exam: Present: RRR, +S1, +S2, systolic murmur (2/6 systolic murmur heard best at the apex) - GI/Abdominal GI/Abdominal exam: Present: soft. Absent: guarding, hepatomegaly, splenomegaly , tenderness - Extremities Exam Additional comments: Continues to have edema in lower extremities but improving. I can see a mahoney bones bilaterally. His lateral thighs still have some pitting but not nearly as full and firm as they were previously. Still has penile edema and cannot see his head of the penis. There is less edema in his arms and particularly in the posterior arm/triceps areas. Internal Medicine: Result - Labs Labs: His renal function has improved with creatinine dropping a bit. Still has chronic renal failure. Consult Discharge Plan - Plan Referrals: Rose Salcedo MD [Primary Care Provider] -
[2017-06-15] MEDS: Bumetanide 1 MG/4 ML VIAL IVP SCH ×2 (16:52→23:28)
[2017-06-15] MEDS: *HR* Rivaroxaban 10 MG TABLET PO SCH (16:52)
[2017-06-15] MEDS ORDERED: Bumetanide 1 MG/4 ML VIAL IVP SCH (17:00)
[2017-06-15] MEDS: Lactobacillus 1 EACH CAP.SPRINK PO SCH (20:26)
[2017-06-15] MEDS: Melatonin 3 MG TABLET PO SCH (20:28)
[2017-06-15] MEDS: Lactulose Oral Soln 20 GM/30 ML UDC PO SCH (20:29)
[2017-06-15] MEDS: hydrOXYzine pamoate 25 MG CAPSULE PO PRN (20:29)
[2017-06-15] MEDS: traMADol 50 MG TABLET PO PRN (23:36)
[2017-06-16] MEDS: Bumetanide 1 MG/4 ML VIAL IVP SCH ×3 (08:38→23:27)
[2017-06-16] MEDS: Finasteride 5 MG TABLET PO SCH (08:38)
[2017-06-16] MEDS: Lactulose Oral Soln 20 GM/30 ML UDC PO SCH ×2 (08:39→20:58)
[2017-06-16] MEDS: Spironolactone 25 MG TABLET PO SCH (08:39)
[2017-06-16] MEDS: Aspirin Enteric Coated 81 MG Tablet PO SCH (08:39)
[2017-06-16] MEDS: Lactobacillus 1 EACH CAP.SPRINK PO SCH ×2 (08:39→20:56)
[2017-06-16] MEDS: Cholecalciferol (D-3) 1,000 UNIT TABLET PO SCH (08:39)
[2017-06-16] MEDS: Isosorbide MONOnitrate (24 HR) 30 MG TAB.ER.24H PO SCH (08:40)
[2017-06-16] MEDS: Multivit/Ca/Min/Fe/FA 1 TAB TABLET PO SCH (08:40)
[2017-06-16] MEDS: *HR* Amiodarone 200 MG TABLET PO SCH (08:40)
--- NOTE | 2017-06-16 12:34 | Internal Med Progress Note ---
Date of Encounter: 06/16/17 Time of Encounter: 12:29 - Assessment and plan (1) Physical deconditioning Current Visit: Yes Status: Acute Assessment and plan: Slowly he is improving. He is getting stronger. Physical therapy had him in standing position yesterday but not able to walk. Aides and nurses can get him to stand enough to pivot and sit in a chair. He is moving better in bed and interacting better. (2) History of CVA (cerebrovascular accident) Current Visit: No Status: Chronic Assessment and plan: No signs of recurrence of CVA. No new focal findings. (3) Anasarca Current Visit: Yes Status: Acute Assessment and plan: The edema is improving as discussed and physical examination. Continue with the Bumex every 8 hours. Renal function is improved (4) Chronic kidney disease (CKD) Current Visit: Yes Status: Chronic Assessment and plan: The last creatinine was improved. Qualifiers: Chronic kidney disease stage: stage 3 (moderate) Qualified Code(s): N18.3 - Chronic kidney disease, stage 3 (moderate) (5) Hypertension Current Visit: Yes Status: Chronic Assessment and plan: Blood pressure under adequate control. Qualifiers: Hypertension type: essential hypertension Qualified Code(s): I10 - Essential (primary) hypertension (6) Presence of stent in coronary artery in patient with coronary artery disease Current Visit: No Status: Chronic Assessment and plan: No angina or CHF currently (7) Hx of congestive heart failure Current Visit: Yes Status: Chronic Assessment and plan: No angina or CHF currently (8) Recurrent falls Current Visit: No Status: Acute (9) Chronic anemia Current Visit: No Status: Chronic (10) Elevated LFTs Current Visit: Yes Status: Acute (11) Decubitus ulcer of buttock, stage 2 Current Visit: Yes Status: Acute Assessment and plan: See the skin examination. Stable Qualifiers: Laterality: unspecified laterality Qualified Code(s): L89.302 - Pressure ulcer of unspecified buttock, stage 2 - Subjective Interval history: Patient states that he feels fairly well except he wants his water restrictions lifted. Denies any cardiac type chest pain. His breathing has been good, no wheezing now. He still is very weak and can barely stand to pivot to sit in a chair or toilet. He thinks his pain is under good control. - Constitutional Vitals: Temp Pulse Resp BP Pulse Ox 97.5 F L 66 16 111/63 97 06/16/17 09:00 06/16/17 09:00 06/16/17 09:00 06/16/17 09:00 06/16/17 09:00 General appearance: Present: A&O X 3, no acute distress, answers questions appropriately - Respiratory Respiratory exam: Present: CTAB. Absent: respiratory distress - Cardiovascular Cardiovascular exam: Present: RRR, +S1, +S2, systolic murmur (2/6 systolic murmur clarissa apex) - GI/Abdominal GI/Abdominal exam: Present: soft. Absent: tenderness - Additional comments: The extreme swelling of the penis skin/foreskin as well as the scrotum is markedly improved. I can now see the head of the penis. Scrotum is basically back to normal. - Extremities Exam Additional comments: less edema, skin eval below. He has less edema in the ankles and feet. Still has some pitting up into the lateral thighs. The scrotum and penile swelling is markedly improved - Skin Additional comments: The sacral and upper buttock reddened area and maceration of the skin is basically unchanged. Very superficial skin sloughing. Cream is being used as recommended by wound clinic. No skin breakdown on his back. Left heel continues to show the 2.5 cm blood blister with a smaller about 1 cm firm center now. Left and right lateral malleoli show redness without skin breakdown. The left fifth proximal metatarsal partially healed scabbed ulcer shows a bruised area but otherwise continues to improve. The tip of the right great toe shows a 2 or 3 mm blood blister type lesion that is not open. He has a lot less edema in the posterior arm/triceps area, the left is worse than the right but overall improved Consult Discharge Plan - Plan Referrals: Rose Salcedo MD [Primary Care Provider] -
[2017-06-16] MEDS: *HR* Rivaroxaban 10 MG TABLET PO SCH (17:43)
[2017-06-16] MEDS: Melatonin 3 MG TABLET PO SCH (20:57)
[2017-06-16] MEDS: hydrOXYzine pamoate 25 MG CAPSULE PO PRN (23:33)
[2017-06-17] MEDS: Lactulose Oral Soln 20 GM/30 ML UDC PO SCH ×2 (08:11→20:07)
[2017-06-17] MEDS: Isosorbide MONOnitrate (24 HR) 30 MG TAB.ER.24H PO SCH (08:11)
[2017-06-17] MEDS: Spironolactone 25 MG TABLET PO SCH (08:11)
[2017-06-17] MEDS: Lactobacillus 1 EACH CAP.SPRINK PO SCH ×2 (08:11→20:06)
[2017-06-17] MEDS: *HR* Amiodarone 200 MG TABLET PO SCH (08:11)
[2017-06-17] MEDS: Multivit/Ca/Min/Fe/FA 1 TAB TABLET PO SCH (08:11)
[2017-06-17] MEDS: Aspirin Enteric Coated 81 MG Tablet PO SCH (08:13)
[2017-06-17] MEDS: Cholecalciferol (D-3) 1,000 UNIT TABLET PO SCH (08:13)
[2017-06-17] MEDS: Finasteride 5 MG TABLET PO SCH (08:13)
[2017-06-17] MEDS: Bumetanide 1 MG/4 ML VIAL IVP SCH ×2 (12:13→16:54)
--- NOTE | 2017-06-17 13:28 | Internal Med Progress Note ---
Date of Encounter: 06/17/17 Time of Encounter: 13:23 - Assessment and plan (1) Physical deconditioning Current Visit: Yes Status: Acute Assessment and plan: He will resume PT and OT tomorrow. He is quite weak and even trying to get up to stand is difficult. They are getting him into a bedside chair. Overall he is improved though. (2) Anasarca Current Visit: Yes Status: Acute Assessment and plan: His anasarca is improving slowly. Less edema in the upper posterior arms. Still has edema in the skin over the thighs. No respiratory or cardiac symptoms now. Continue with the Bumex 3 times a day. Is not gone down significantly now though, but the using bed scales and I am concerned about accuracy. It is about 8849-9492 mL's per day (3) Chronic kidney disease (CKD) Current Visit: Yes Status: Chronic Assessment and plan: History of chronic kidney disease and last creatinine was improved. We will follow up with another lab test. Qualifiers: Chronic kidney disease stage: stage 3 (moderate) Qualified Code(s): N18.3 - Chronic kidney disease, stage 3 (moderate) (4) History of CVA (cerebrovascular accident) Current Visit: No Status: Chronic Assessment and plan: Previous CVA without recurrence. He has had some residual gait abnormalities for the previous CVA. (5) Hypertension Current Visit: Yes Status: Chronic Qualifiers: Hypertension type: essential hypertension Qualified Code(s): I10 - Essential (primary) hypertension (6) Presence of stent in coronary artery in patient with coronary artery disease Current Visit: No Status: Chronic Assessment and plan: Currently no angina or CHF. (7) Hx of congestive heart failure Current Visit: Yes Status: Chronic (8) Recurrent falls Current Visit: No Status: Acute (9) Chronic anemia Current Visit: No Status: Chronic Assessment and plan: Follow-up hemoglobin tomorrow. (10) Elevated LFTs Current Visit: Yes Status: Acute Assessment and plan: Likely from chronic passive congestion in the liver from CHF. We will recheck tomorrow. (11) Decubitus ulcer of buttock, stage 2 Current Visit: Yes Status: Acute Assessment and plan: Hopefully wound clinic will reevaluate him tomorrow. We are trying to keep him off that region. Qualifiers: Laterality: unspecified laterality Qualified Code(s): L89.302 - Pressure ulcer of unspecified buttock, stage 2 - Subjective Interval history: Patient's only complaint is that he wishes he could be floated so he would not have pain in the low back and buttock area from sitting. He wants to know if we have a doughnut-shaped cushion that might be helpful. The nursing staff is trying to prop him up so he stays off the sacral region. He does not like to lie in his side though. He denies any cardiac symptoms. He denies any respiratory symptoms. Denies any abdominal, GI or symptoms. He has been eating fairly well. He still is concerned about his limited water intake now up to 1500 mL's daily - Constitutional Vitals: Temp Pulse Resp BP Pulse Ox 98.9 F 68 18 108/61 97 06/17/17 07:27 06/17/17 07:27 06/17/17 07:27 06/17/17 07:27 06/17/17 07:27 General appearance: Present: A&O X 3, no acute distress, answers questions appropriately - Respiratory Respiratory exam: Present: CTAB - Cardiovascular Cardiovascular exam: Present: RRR, +S1, +S2, systolic murmur (2/6 RADHA at apex) - Extremities Exam Additional comments: still pitting, stockings on. Edema lateral thighs. Penis/foreskin still swollen. Consult Discharge Plan - Plan Referrals: Rose Salcedo MD [Primary Care Provider] -
[2017-06-17] MEDS: *HR* Rivaroxaban 10 MG TABLET PO SCH (16:53)
[2017-06-17] MEDS: hydrOXYzine pamoate 25 MG CAPSULE PO PRN (20:07)
[2017-06-17] MEDS: Melatonin 3 MG TABLET PO SCH (20:07)
[2017-06-17] MEDS: traMADol 50 MG TABLET PO PRN (22:23)
[2017-06-18] MEDS: Bumetanide 1 MG/4 ML VIAL IVP SCH ×3 (00:08→18:33)
[2017-06-18 05:44] LABS: Basophils % 0.3 %; Eosinophils % 0.3 %; Hematocrit 26.2 % (37.5-50.1); Hemoglobin 8.1 g/dL (12.9-16.9); Immature Granulocytes % 0.4 % (0-4); Lymphocytes % 5.4 %; Mean Corpuscular HGB Conc 30.9 g/dL (31.6-35.5); Mean Corpuscular Hemoglobin 26.4 pg (28.0-33.3); Mean Corpuscular Volume 85.3 fL (83.0-100.0); Mean Platelet Volume 10.1 fL (9.4-12.4); Monocytes % 9.7 %; Platelet Count 244 K/mcL (140-400); Red Blood Count 3.07 M/mcL (4.19-5.50); Red Cell Distribution Width 17.1 % (11.5-14.5); Segmented Neutrophils % 83.9 %
[2017-06-18 05:45] LABS: Lymphocytes # 0.5 K/mcL (0.6-4.6); Monocytes # 0.9 K/mcL (0.0-1.3); Neutrophils # 8.1 K/mcL (1.6-8.9)
[2017-06-18] MEDS: traMADol 50 MG TABLET PO PRN ×2 (05:49→21:01)
[2017-06-18 06:03] LABS: Albumin 2.1 g/dL (3.5-5.0); Albumin/Globulin Ratio 0.7 (1.1-2.2); Bilirubin,Direct 0.5 mg/dL (0.0-0.5); Bilirubin,Indirect 0.3 mg/dL (0.0-1.2); Bilirubin,Total 0.8 mg/dL (0.2-1.2); Calcium 8.9 mg/dL (8.6-10.8); Globulin 3.2 g/dL (2.4-3.5); Potassium 3.8 mEq/L (3.5-4.5); Total Protein 5.3 g/dL (6.0-8.3)
[2017-06-18] MEDS: *HR* Amiodarone 200 MG TABLET PO SCH (08:39)
[2017-06-18] MEDS: Lactobacillus 1 EACH CAP.SPRINK PO SCH ×2 (08:39→20:58)
[2017-06-18] MEDS: Cholecalciferol (D-3) 1,000 UNIT TABLET PO SCH (08:39)
[2017-06-18] MEDS: Spironolactone 25 MG TABLET PO SCH (08:39)
[2017-06-18] MEDS: Multivit/Ca/Min/Fe/FA 1 TAB TABLET PO SCH (08:39)
[2017-06-18] MEDS: Lactulose Oral Soln 20 GM/30 ML UDC PO SCH ×2 (08:39→20:59)
[2017-06-18] MEDS: Aspirin Enteric Coated 81 MG Tablet PO SCH (08:40)
[2017-06-18] MEDS: Finasteride 5 MG TABLET PO SCH (08:40)
[2017-06-18] MEDS: Isosorbide MONOnitrate (24 HR) 30 MG TAB.ER.24H PO SCH (08:40)
--- NOTE | 2017-06-18 10:11 | Internal Med Progress Note ---
Date of Encounter: 06/18/17 Time of Encounter: 10:07 - Assessment and plan (1) Physical deconditioning Current Visit: Yes Status: Acute Assessment and plan: He will resume physical therapy today. Is going to be a long haul before he can go home. He will need ECF placement again for ongoing therapy as well as continued slow diuresis. He is showing improvement though. (2) Anasarca Current Visit: Yes Status: Acute Assessment and plan: Better urine out put yesterday and weight down. However he still has edema in lower extremities and into the lateral thighs. We are trying to slowly get the fluid off and yet maintain adequate blood pressure and renal function. We will continue with Bumex intravenously every 8 hours. (3) Chronic kidney disease (CKD) Current Visit: Yes Status: Chronic Assessment and plan: He has chronic kidney disease, his creatinine is stable at 2.17. We will continue with the Bumex. Qualifiers: Chronic kidney disease stage: stage 3 (moderate) Qualified Code(s): N18.3 - Chronic kidney disease, stage 3 (moderate) (4) History of CVA (cerebrovascular accident) Current Visit: No Status: Chronic (5) Hypertension Current Visit: Yes Status: Chronic Assessment and plan: Blood pressures have remained adequately controlled despite the diuresis and Bumex use. Qualifiers: Hypertension type: essential hypertension Qualified Code(s): I10 - Essential (primary) hypertension (6) Presence of stent in coronary artery in patient with coronary artery disease Current Visit: No Status: Chronic Assessment and plan: No angina or CHF currently (7) Hx of congestive heart failure Current Visit: Yes Status: Chronic (8) Recurrent falls Current Visit: No Status: Acute (9) Chronic anemia Current Visit: No Status: Chronic (10) Elevated LFTs Current Visit: Yes Status: Acute Assessment and plan: His liver functions/transaminases are improved. This is likely from passive venous congestion in the liver and with diuresis he is improving. (11) Decubitus ulcer of buttock, stage 2 Current Visit: Yes Status: Acute Assessment and plan: He will hopefully be reevaluated by wound care today. Qualifiers: Laterality: unspecified laterality Qualified Code(s): L89.302 - Pressure ulcer of unspecified buttock, stage 2 - Subjective Interval history: Patient's biggest complaint is that his bottom still hurts. We are trying to use padding and pillows to keep him on one side or the other. He is dressed this morning. He has not had physical therapy yet. The most he could do was standing with assistance this weekend. He is able to make transfers to a chair. He denies any cardiac or respiratory symptoms. No GI or symptoms. - Constitutional Vitals: Temp Pulse Resp BP Pulse Ox 97.8 F 66 16 101/56 95 06/18/17 07:07 06/18/17 07:07 06/18/17 07:07 06/18/17 07:07 06/18/17 07:07 General appearance: Present: A&O X 3, no acute distress, answers questions appropriately - Respiratory Respiratory exam: Present: CTAB. Absent: respiratory distress - Cardiovascular Cardiovascular exam: Present: RRR, +S1, +S2, systolic murmur (2/6 systolic murmur clarissa at apex) - Extremities Exam Additional comments: still edema shins. Did not check thighs/buttocks as pt dressed. Internal Medicine: Result - Labs CBC & Chem 7: 06/18/17 05:20 06/18/17 05:20 Labs: Labs reviewed, stable or improved. LFTs improved. Short CBC Labs reviewed 06/18/17 Range/Units 05:20 WBC 9.6 (4.3-11.1) K/mcL Hgb 8.1 L (12.9-16.9) g/dL Hct 26.2 L (37.5-50.1) % Plt Count 244 (140-400) K/mcL Neutrophils # 8.1 (1.6-8.9) K/mcL BMP 06/18/17 05:20 Sodium 141 Potassium 3.8 Chloride 101 Carbon Dioxide 33 H BUN 56 H Creatinine 2.17 H Glucose 114 H Calcium 8.9 Liver Function 06/18/17 Range/Units 05:20 Total Bilirubin 0.8 (0.2-1.2) mg/dL Direct Bilirubin 0.5 (0.0-0.5) mg/dL AST 172 H (5-34) Units/L ALT 136 H (0-55) Units/L Alkaline Phosphatase 94 (38-126) Units/L Albumin 2.1 L (3.5-5.0) g/dL Consult Discharge Plan - Plan Referrals: Rose Salcedo MD [Primary Care Provider] -
[2017-06-18] MEDS: *HR* Rivaroxaban 10 MG TABLET PO SCH (18:33)
[2017-06-18] MEDS: Melatonin 3 MG TABLET PO SCH (20:58)
[2017-06-19] MEDS: Bumetanide 1 MG/4 ML VIAL IVP SCH ×4 (00:13→18:19)
[2017-06-19] MEDS: traMADol 50 MG TABLET PO PRN (05:11)
--- NOTE | 2017-06-19 09:04 | Internal Med Progress Note ---
Date of Encounter: 06/19/17 Time of Encounter: 08:59 - Assessment and plan (1) Physical deconditioning Current Visit: Yes Status: Acute Assessment and plan: Patients continues to have a lot of weakness particularly of the lower extremities. Barely able to stand up. Needs one or 2 person assistance to do so. Therapy is using a gait belt this morning just to get him to stand and pivot to sit in the wheelchair. Complains of weakness in his quads. He needs ongoing therapies. If we are not able to meet criteria for aggressive inpatient care he will need to go to [facility] for ongoing therapy. (2) Anasarca Current Visit: Yes Status: Acute Assessment and plan: His weight is down about 4 pounds. We are getting off about 1500 mL's daily and still able to maintain adequate blood pressure and creatinine stable 2.17. I will try to increase his Bumex to 2 mg every 8 hours IV. He still has edema in his lower extremities from the waist downward. His arms are much improved. Lungs are clear. No cardiac or respiratory symptoms. (3) Chronic kidney disease (CKD) Current Visit: Yes Status: Chronic Assessment and plan: His last creatinine was stable 2.17. We will continue to monitor as we increase his Bumex. Qualifiers: Chronic kidney disease stage: stage 3 (moderate) Qualified Code(s): N18.3 - Chronic kidney disease, stage 3 (moderate) (4) History of CVA (cerebrovascular accident) Current Visit: No Status: Chronic Assessment and plan: Remote history of CVA which left him with a gait abnormality. This is also compounding his new issues of deconditioning. No sign of new CVA. (5) Hypertension Current Visit: Yes Status: Chronic Assessment and plan: Long-standing history of hypertension. Blood pressures have been 100-130 systolic until this morning which it was 95 systolic. We will recheck before giving Bumex. Qualifiers: Hypertension type: essential hypertension Qualified Code(s): I10 - Essential (primary) hypertension (6) Presence of stent in coronary artery in patient with coronary artery disease Current Visit: No Status: Chronic Assessment and plan: Currently no cardiac symptoms. (7) Hx of congestive heart failure Current Visit: Yes Status: Chronic Assessment and plan: Lungs are clear and no pulmonary or cardiac symptoms. (8) Recurrent falls Current Visit: No Status: Acute (9) Chronic anemia Current Visit: No Status: Chronic Assessment and plan: Chronic anemia likely from chronic kidney disease. (10) Elevated LFTs Current Visit: Yes Status: Acute (11) Decubitus ulcer of buttock, stage 2 Current Visit: Yes Status: Acute Assessment and plan: Continue with protective cream on his sacral area and they are trying to keep him off that by frequent turning etc. Qualifiers: Laterality: unspecified laterality Qualified Code(s): L89.302 - Pressure ulcer of unspecified buttock, stage 2 (12) Decubitus ulcer of left heel Current Visit: Yes Status: Acute Assessment and plan: Continues with the decubitus/ large blood blister of the left heel. We are trying to keep the heels protected with the boots but he really hates those. We will see what other options we have to try to float his heels and be more comfortable. Qualifiers: Pressure ulcer stage: unspecified pressure ulcer stage Qualified Code(s): L89.629 - Pressure ulcer of left heel, unspecified stage - Subjective Interval history: Pt C/O the boots used to protect his heels. He hates them and the PT said that they were twisted on his foot. We will ask wound care for an alternative device. No CP,SOB abd pain. U/O about 1500 ml daily, and weight went down 4 pounds lately. - Constitutional Vitals: Temp Pulse Resp BP Pulse Ox 98.0 F 79 16 95/56 95 06/19/17 07:18 06/19/17 07:18 06/19/17 07:18 06/19/17 07:18 06/19/17 07:18 General appearance: Present: A&O X 3, no acute distress, answers questions appropriately - Respiratory Respiratory exam: Present: decreased breath sounds, CTAB - Cardiovascular Cardiovascular exam: Present: RRR, +S1, +S2, systolic murmur (2/6 systolic mrmur heard best at apex/LLSB) - Extremities Exam Additional comments: still has edema on lower legs and thighs. Arms are better. Internal Medicine: Result - Labs CBC & Chem 7: 06/18/17 05:20 06/18/17 05:20 - VTE Documentation of Mechanical Device: Graduated compression elastic hosiery Consult Discharge Plan - Plan Referrals: Rose Salcedo MD [Primary Care Provider] -
[2017-06-19] MEDS: Finasteride 5 MG TABLET PO SCH (10:48)
[2017-06-19] MEDS: *HR* Amiodarone 200 MG TABLET PO SCH (10:48)
[2017-06-19] MEDS: Cholecalciferol (D-3) 1,000 UNIT TABLET PO SCH (10:48)
[2017-06-19] MEDS: Isosorbide MONOnitrate (24 HR) 30 MG TAB.ER.24H PO SCH (10:48)
[2017-06-19] MEDS: Multivit/Ca/Min/Fe/FA 1 TAB TABLET PO SCH (10:48)
[2017-06-19] MEDS: Aspirin Enteric Coated 81 MG Tablet PO SCH (10:48)
[2017-06-19] MEDS: Lactobacillus 1 EACH CAP.SPRINK PO SCH ×2 (10:48→21:57)
[2017-06-19] MEDS: Lactulose Oral Soln 20 GM/30 ML UDC PO SCH ×2 (10:49→21:58)
[2017-06-19] MEDS: Spironolactone 25 MG TABLET PO SCH (12:35)
[2017-06-19] MEDS: *HR* Rivaroxaban 10 MG TABLET PO SCH (18:19)
[2017-06-19] MEDS: Melatonin 3 MG TABLET PO SCH (21:57)
[2017-06-20] MEDS: Bumetanide 1 MG/4 ML VIAL IVP SCH ×3 (00:32→18:25)
[2017-06-20] MEDS: Lactobacillus 1 EACH CAP.SPRINK PO SCH ×2 (09:22→21:10)
[2017-06-20] MEDS: Finasteride 5 MG TABLET PO SCH (09:22)
[2017-06-20] MEDS: Lactulose Oral Soln 20 GM/30 ML UDC PO SCH ×2 (09:23→21:12)
[2017-06-20] MEDS: Cholecalciferol (D-3) 1,000 UNIT TABLET PO SCH (09:23)
[2017-06-20] MEDS: Isosorbide MONOnitrate (24 HR) 30 MG TAB.ER.24H PO SCH (09:23)
[2017-06-20] MEDS: Multivit/Ca/Min/Fe/FA 1 TAB TABLET PO SCH (09:23)
[2017-06-20] MEDS: *HR* Amiodarone 200 MG TABLET PO SCH (09:23)
[2017-06-20] MEDS: Aspirin Enteric Coated 81 MG Tablet PO SCH (09:23)
[2017-06-20] MEDS: Spironolactone 25 MG TABLET PO SCH (11:32)
[2017-06-20] MEDS: Ascorbic Acid 500 MG TABLET PO SCH (14:53)
--- NOTE | 2017-06-20 17:34 | Internal Med Progress Note ---
Date of Encounter: 06/20/17 Time of Encounter: 17:34 - Assessment and plan (1) Physical deconditioning Current Visit: Yes Status: Acute Assessment and plan: He is not advancing at the appropriate rate to continue inpatient physical therapy. We will plan on transfer to [facility] tomorrow if medically stable. (2) Anasarca Current Visit: Yes Status: Acute Assessment and plan: We have been able to make modest improvement in his swelling of lower extremities. Certainly his penis and scrotum areas are markedly improved. Still has edematous skin in the thighs and legs. He has been increased to Bumex 2 mg IV 3 times a day. We will recheck his renal function tomorrow. (3) Chronic kidney disease (CKD) Current Visit: Yes Status: Chronic Assessment and plan: Chronic kidney disease, his creatinine has been stable even with the diuresis. Qualifiers: Chronic kidney disease stage: stage 3 (moderate) Qualified Code(s): N18.3 - Chronic kidney disease, stage 3 (moderate) (4) History of CVA (cerebrovascular accident) Current Visit: No Status: Chronic Assessment and plan: Remote history of CVA and balance issues. This may be contributing to some of his gait issues. No recent CVA signs. (5) Hypertension Current Visit: Yes Status: Chronic Assessment and plan: Long-standing history of hypertension. Now his blood pressures tend to be on the low side. Typically ranging 100-120 systolic though. Qualifiers: Hypertension type: essential hypertension Qualified Code(s): I10 - Essential (primary) hypertension (6) Presence of stent in coronary artery in patient with coronary artery disease Current Visit: No Status: Chronic Assessment and plan: Currently no angina or CHF (7) Hx of congestive heart failure Current Visit: Yes Status: Chronic (8) Recurrent falls Current Visit: No Status: Acute (9) Chronic anemia Current Visit: No Status: Chronic Assessment and plan: His hemoglobin has been stable. He gets Aranesp every 2 weeks. (10) Elevated LFTs Current Visit: Yes Status: Acute Assessment and plan: Elevated LFTs, now showing improvement. Likely was from passive venous congestion. He has already seen GI and no intervention for now. (11) Decubitus ulcer of buttock, stage 2 Current Visit: Yes Status: Acute Assessment and plan: Superficial maceration-type decubitus in the sacral and upper buttock area. Qualifiers: Laterality: unspecified laterality Qualified Code(s): L89.302 - Pressure ulcer of unspecified buttock, stage 2 (12) Decubitus ulcer of left heel Current Visit: Yes Status: Acute Assessment and plan: No great improvement in the left heel blister-type decubitus. Additional vitamins and vitamin C have been added. Heel protectors and floating of the heels while in bed continue Qualifiers: Pressure ulcer stage: unspecified pressure ulcer stage Qualified Code(s): L89.629 - Pressure ulcer of left heel, unspecified stage - Subjective Interval history: Patient states that he feels about the same. No cardiac or respiratory symptoms. No abdominal pain. He thinks he has less swelling in lower extremities. Therapy reports that he is not advancing very well. He still easily fatigued and takes 2 person assist for standing and transfers. He is not walking yet. - Constitutional Vitals: Temp Pulse Resp BP Pulse Ox 97.6 F 64 16 97/44 98 06/20/17 15:35 06/20/17 15:35 06/20/17 15:35 06/20/17 15:35 06/20/17 15:35 General appearance: Present: A&O X 3, no acute distress, answers questions appropriately - Respiratory Respiratory exam: Present: CTAB. Absent: respiratory distress - Cardiovascular Cardiovascular exam: Present: distant heart sounds, RRR, +S1, +S2, systolic murmur (2/6 murmur at the left sternal border) - Extremities Exam Additional comments: His lower extremities are still swollen. Possibly slightly less pitting in the pretibial areas. His thighs and buttock still have edema of the skin. Internal Medicine: Result - Labs CBC & Chem 7: 06/18/17 05:20 06/18/17 05:20 - VTE Documentation of Mechanical Device: Graduated compression elastic hosiery Consult Discharge Plan - Plan Referrals: Rose Salcedo MD [Primary Care Provider] -
[2017-06-20] MEDS: *HR* Rivaroxaban 10 MG TABLET PO SCH (18:25)
[2017-06-20] MEDS: Melatonin 3 MG TABLET PO SCH (21:11)
[2017-06-20] MEDS: Zinc Sulfate 220 MG CAPSULE PO SCH (21:11)
--- NOTE | 2017-06-20 21:51 | Discharge Summary ---
Date of Encounter: 06/21/17 Time of Encounter: 07:25 - Discharge Diagnosis (1) Physical deconditioning Priority: Primary Status: Acute Comments: Patient was initially admitted with anasarca, chronic renal failure, and deconditioning. When he was medically stable he was transferred to a swing bed for PT and OT and ongoing medical care at halfway. Unfortunately, is not showing continued aggressive progression with ADLs, standing, walking, etc. to qualify for continued inpatient therapies. We have recommended that he be transferred to an ECF for ongoing halfway care and physical therapy and occupational therapy. (2) Anasarca Priority: Secondary Status: Acute Comments: Initially patient was admitted from the correction with history of hypotension and anasarca and inability to tolerate diuretics because of hypotension. Patient was placed on IV Bumex and has been diuresing about 1500- 2200 mL's daily. Recently we have increased the Bumex to 2 mg 3 times a day IV push. We have also limited his liquid intake to 1500 mL. His had a modest decline in his weight. He has a lot less edema in his waist and thighs compared to before. Previously his penis and scrotum were so swollen that he was not able to urinate in the urinal. Known history of congestive heart failure and poor ejection fraction 30% range. He has a history of chronic kidney disease and dependent edema. He started to have a vicious cycle in ECF where he could not tolerate the diuretics because of hypotension and therefore the diuretics were held and the edema worsened. On the hospital his blood pressure has been in the high 90s to 120 systolic tolerating the Bumex 2 mg 3 times a day IVP. The diuresis has been slow but consistent but a long ways yet to go. (3) Chronic kidney disease (CKD) Priority: Secondary Status: Chronic Comments: Known history of chronic kidney disease and his creatinine is stable at 2.17 despite taking increased diuresis and IV Bumex. He has been followed by material specialist in the past. He gets Aranesp every 2 weeks because of anemia Qualifiers: Chronic kidney disease stage: stage 3 (moderate) Qualified Code(s): N18.3 - Chronic kidney disease, stage 3 (moderate) (4) History of CVA (cerebrovascular accident) Priority: Secondary Status: Chronic Comments: Prior history of CVA with gait and balance abnormality. No recent signs of recurrence or new CVA. (5) Hypertension Priority: Secondary Status: Chronic Comments: Long-standing history of hypertension, now under good control. Occasionally his systolic pressure will be in the high 90s. Qualifiers: Hypertension type: essential hypertension Qualified Code(s): I10 - Essential (primary) hypertension (6) Presence of stent in coronary artery in patient with coronary artery disease Priority: Secondary Status: Chronic Comments: Known history of ischemic cardiomyopathy and coronary artery disease with a stent. He has had no angina during this hospital stay. Recent echocardiogram was stable ejection fraction 30-35% range (7) Hx of congestive heart failure Priority: Secondary Status: Chronic Comments: As above (8) Recurrent falls Priority: Secondary Status: Acute Comments: History of recurrent falls at home and general decline in ADLs at the correction prior to coming to the hospital. He will need ongoing PT and OT as he has difficulties with standing. (9) Chronic anemia Priority: Secondary Status: Chronic Comments: Chronic anemia likely related to his chronic kidney disease. He saw GI consult recently but is not a good enough candidate for upper and lower endoscopies. He has not required blood during this hospital stay. He gets Aranesp every 2 weeks per his material specialist. (10) Elevated LFTs Priority: Secondary Status: Acute Comments: History of elevated LFTs during his last hospital stay prior to going to the correction. Workup included negative testing for viral hepatitis. Negative CT scan for mass or other abnormality. His liver functions actually improved and thought to be due to chronic passive venous congestion from CHF. (11) Decubitus ulcer of buttock, stage 2 Priority: Secondary Status: Acute Comments: On his admission to the acute bed he had large superficial macerated type decubitus in the sacral and upper buttock areas. Wound clinic as recommended copious amounts of cream. This has not improved greatly Qualifiers: Laterality: unspecified laterality Qualified Code(s): L89.302 - Pressure ulcer of unspecified buttock, stage 2 (12) Decubitus ulcer of left heel Priority: Secondary Status: Acute Comments: Upon his discharge to the correction in the past he had a blood blister on the left heel. He continues to have a blister-type decubitus in the left heel despite heel protectors, floating his heel etc. It is stable but just not improved. Qualifiers: Pressure ulcer stage: unspecified pressure ulcer stage Qualified Code(s): L89.629 - Pressure ulcer of left heel, unspecified stage (13) Paroxysmal atrial fibrillation Priority: Secondary Status: Chronic Comments: History of paroxysmal atrial fibrillation. He has been in what appears to be sinus rhythm the entire hospital stay. We continued his cardiac medications as well as anticoagulation meds. - Discharge Medications Home Medications: Carvedilol [Coreg] 3.125 mg PO BIDWM 02/19/15 [History] Tamsulosin [Flomax] 0.4 mg PO HS 02/19/15 [History] Albuterol Sulfate [Albuterol Inhaler] 2 inh IH Q4HR PRN 01/30/16 [History] Atorvastatin Calcium [Lipitor] 80 mg PO DAILY 01/30/16 [History] Finasteride [Proscar] 5 mg PO DAILY 01/30/16 [History] Multivitamin [Multi-Day Vitamins] 1 tab PO DAILY 01/30/16 [History] Nitroglycerin [Nitrostat] 0.4 mg SL Q5-6MIN PRN 01/30/16 [History] Amiodarone [Cordarone] 200 mg PO DAILY 05/07/17 [History] Aspirin [Lo-Dose Aspirin EC] 81 mg PO DAILY 05/07/17 [History] Levothyroxine [Synthroid] 75 mcg PO DAILY@0630 #30 tablet 05/08/17 [Rx] Docusate [Colace] 100 mg PO BIDWM capsule 05/24/17 [Rx] Ferrous Sulfate 325 mg PO BIDWM tablet 05/24/17 [Rx] Lactulose 10 gm PO BID udc 05/24/17 [Rx] Omeprazole [PriLOSEC] 20 mg PO DAILY@0630 capsule. 05/24/17 [Rx] Rivaroxaban [Xarelto] 10 mg PO 1700 tablet 05/24/17 [Rx] Cholecalciferol (Vitamin D3) [Vitamin D3] 50,000 unit PO AD 06/11/17 [History] Lactobacillus Combo No.11 [Probiotic] 2 each PO BID 06/11/17 [History] Melatonin [Melatin] 3 mg PO HS 06/11/17 [History] Spironolactone [Aldactone] 12.5 mg PO DAILY 06/11/17 [History] Acetaminophen [Tylenol] 1,000 mg PO Q4HR PRN tablet 06/20/17 [Rx] Ascorbic Acid [Vitamin C] 500 mg PO DAILY tablet 06/20/17 [Rx] Bumetanide [Bumex] 2 mg IVP Q8HR vial 06/20/17 [Rx] Darbepoetin [Aranesp] 60 mcg SQ Q2W syringe 06/20/17 [Rx] Zinc Sulfate 220 mg PO BID capsule 06/20/17 [Rx] Allergies/Adverse Reactions: 3 Allergy/AdvReac Type Severity Reaction Status Date / Time Penicillins Allergy Hives Verified 05/07/17 00:15 Procedures/tests Complete & Pending: Laboratory Tests 06/18/17 06/18/17 06/18/17 05:20 05:20 05:20 WBC 9.6 RBC 3.07 L Hgb 8.1 L Hct 26.2 L MCV 85.3 MCH 26.4 L MCHC 30.9 L RDW 17.1 H Plt Count 244 MPV 10.1 Immature Gran % 0.4 Seg Neutrophils % 83.9 Lymphocytes % 5.4 Monocytes % 9.7 Eosinophils % 0.3 Basophils % 0.3 Neutrophils # 8.1 Lymphocytes # 0.5 L Monocytes # 0.9 Eosinophils # 0.0 Basophils # 0.0 Sodium 141 Potassium 3.8 Chloride 101 Carbon Dioxide 33 H BUN 56 H Creatinine 2.17 H Est GFR ( Amer) 35 L Est GFR (Non-Af Amer) 29 L BUN/Creatinine Ratio 26 Glucose 114 H Calculated Osmolality 308 H Calcium 8.9 Total Bilirubin 0.8 Direct Bilirubin 0.5 Indirect Bilirubin 0.3 AST 172 H ALT 136 H Alkaline Phosphatase 94 Serum Total Protein 5.3 L Albumin 2.1 L Globulin 3.2 Albumin/Globulin Ratio 0.7 L Laboratory Tests 06/18/17 06/18/17 06/18/17 05:20 05:20 05:20 WBC 9.6 RBC 3.07 L Hgb 8.1 L Hct 26.2 L MCV 85.3 MCH 26.4 L MCHC 30.9 L RDW 17.1 H Plt Count 244 MPV 10.1 Immature Gran % 0.4 Seg Neutrophils % 83.9 Lymphocytes % 5.4 Monocytes % 9.7 Eosinophils % 0.3 Basophils % 0.3 Neutrophils # 8.1 Lymphocytes # 0.5 L Monocytes # 0.9 Eosinophils # 0.0 Basophils # 0.0 Sodium 141 Potassium 3.8 Chloride 101 Carbon Dioxide 33 H BUN 56 H Creatinine 2.17 H Est GFR ( Amer) 35 L Est GFR (Non-Af Amer) 29 L BUN/Creatinine Ratio 26 Glucose 114 H Calculated Osmolality 308 H Calcium 8.9 Total Bilirubin 0.8 Direct Bilirubin 0.5 Indirect Bilirubin 0.3 AST 172 H ALT 136 H Alkaline Phosphatase 94 Serum Total Protein 5.3 L Albumin 2.1 L Globulin 3.2 Albumin/Globulin Ratio 0.7 L 06/21/17 06/21/17 06:20 06:20 WBC 10.4 RBC 3.00 L Hgb 8.1 L Hct 25.7 L MCV 85.7 MCH 27.0 L MCHC 31.5 L RDW 17.3 H Plt Count 247 MPV 11.0 Immature Gran % 0.4 Seg Neutrophils % 82.8 Lymphocytes % 5.1 Monocytes % 10.9 Eosinophils % 0.4 Basophils % 0.4 Neutrophils # 8.7 Lymphocytes # 0.5 L Monocytes # 1.1 Eosinophils # 0.0 Basophils # 0.0 Sodium 141 Potassium 3.7 Chloride 98 Carbon Dioxide 33 H BUN 52 H Creatinine 2.09 H Est GFR ( Amer) 37 L Est GFR (Non-Af Amer) 30 L BUN/Creatinine Ratio 25 Glucose 105 H Calculated Osmolality 306 H Calcium 9.0 Total Bilirubin Direct Bilirubin Indirect Bilirubin AST ALT Alkaline Phosphatase Serum Total Protein Albumin Globulin Albumin/Globulin Ratio Date of admission: 06/15/17 12:05 Primary care physician: Rose Salcedo Consults: 06/15/17 12:43 Consult to Occupational Therapy [CONS] Routine Comment: eval and treat Reason for Consult: chf, deconditioning Consult to Physical Therapy [CONS] Routine Comment: eval and treat Reason for Consult: deconditioning, chf Discharging clinician: Dre Maldonado Anticipated date of discharge: 06/21/17 - Patient Status Disposition: Transfer SNF Condition: Fair Functional capacity at discharge: wheelchair bound Overall status at discharge: patient is not back to baseline - Discharge Instructions Follow Up With: Dre Maldonado MD [Partnered Physician] - - Diet and Activity Activity: as per physical therapy Diet: low fat, low cholesterol, low salt diet Interval History: Overnight he has done well. No cardiac or respiratory symptoms. The swelling in the scrotal and penis area is basically gone now. He is eager to go to the correction. I discussed the situation with his daughter on the phone at great length last night. Hospital course: Mr. Dorado is a 86 year old male who was admitted from the correction with anasarca with edema from his feet up to the thighs and waist and severe swelling of the penis and scrotum to the point where he could not use a urinal and had to have a Mehta catheter placed. In the correction they have been unable to keep up with his diuretic because of hypotension. Here we have been giving him IV Bumex and slowly getting off a lot of the fluid. Most of the edema is out of the arms. Edema is out of the penis and scrotum. He still has some pitting edema of the lateral thighs and buttock down to the feet. He is not having any respiratory distress or signs of congestive heart failure recently. Please see the discharge diagnoses and hospital course as above - Time Spent with Patient Total time spent providing and/or coordinating discharge services: - Constitutional Vitals: Temp Pulse Resp BP Pulse Ox 97.4 F L 124 16 94/46 98 06/20/17 19:51 06/20/17 19:51 06/20/17 19:51 06/20/17 19:51 06/20/17 19:51 General appearance: Present: A&O X 3, no acute distress, answers questions appropriately - Respiratory Respiratory exam: Present: decreased breath sounds, CTAB - Cardiovascular Cardiovascular exam: Present: RRR, +S1, +S2, systolic murmur (2/6 systolic murmur) - GI/Abdominal GI/Abdominal exam: Present: soft. Absent: tenderness - Extremities Exam Additional comments: He has pitting edema from the feet up to the thighs. This is much improved. He no longer has the severe edema at the penis and scrotal area. The arms are basically non-edematous now - Skin Additional comments: He continues with the excoriation type cubitus ulcer in the sacral and upper buttock area treated with cream per wound clinic recommendation. Left heel continues with the blood blister type decubitus and is stable. Left lateral ankle decubitus is covered with Allevyn left lateral fifth metatarsal decubitus is dried and scabbing. - VTE Documentation of Mechanical Device: Graduated compression elastic hosiery
[2017-06-21] MEDS: Bumetanide 1 MG/4 ML VIAL IVP SCH ×2 (00:29→08:28)
[2017-06-21 06:42] LABS: Potassium 3.7 mEq/L (3.5-4.5)
[2017-06-21 07:33] VITALS: BP 106/68
--- NOTE | 2017-06-21 07:36 | Physician Discharge Referral ---
ExtendedCare Referral Info Transfer To: [facility] Provider in Charge after Transfer: Other (F medical doctor) Institutional Level of Care: Skilled - Diagnosis (1) Physical deconditioning Priority: Primary Status: Acute (2) Anasarca Priority: Secondary Status: Acute (3) Chronic kidney disease (CKD) Priority: Secondary Status: Chronic (4) History of CVA (cerebrovascular accident) Priority: Secondary Status: Chronic (5) Hypertension Priority: Secondary Status: Chronic (6) Presence of stent in coronary artery in patient with coronary artery disease Priority: Secondary Status: Chronic (7) Hx of congestive heart failure Priority: Secondary Status: Chronic (8) Recurrent falls Priority: Secondary Status: Acute (9) Chronic anemia Priority: Secondary Status: Chronic (10) Elevated LFTs Priority: Secondary Status: Acute (11) Decubitus ulcer of buttock, stage 2 Priority: Secondary Status: Acute (12) Decubitus ulcer of left heel Priority: Secondary Status: Acute (13) Paroxysmal atrial fibrillation Priority: Secondary Status: Chronic Prognosis: Good Aware of Diagnosis: Patient, Family Aware of Prognosis: Patient, Family - Transfer Medications Home Medications: Carvedilol [Coreg] 3.125 mg PO BIDWM 02/19/15 [History] Tamsulosin [Flomax] 0.4 mg PO HS 02/19/15 [History] Albuterol Sulfate [Albuterol Inhaler] 2 inh IH Q4HR PRN 01/30/16 [History] Atorvastatin Calcium [Lipitor] 80 mg PO DAILY 01/30/16 [History] Finasteride [Proscar] 5 mg PO DAILY 01/30/16 [History] Multivitamin [Multi-Day Vitamins] 1 tab PO DAILY 01/30/16 [History] Nitroglycerin [Nitrostat] 0.4 mg SL Q5-6MIN PRN 01/30/16 [History] Amiodarone [Cordarone] 200 mg PO DAILY 05/07/17 [History] Aspirin [Lo-Dose Aspirin EC] 81 mg PO DAILY 05/07/17 [History] Levothyroxine [Synthroid] 75 mcg PO DAILY@0630 #30 tablet 05/08/17 [Rx] Docusate [Colace] 100 mg PO BIDWM capsule 05/24/17 [Rx] Ferrous Sulfate 325 mg PO BIDWM tablet 05/24/17 [Rx] Lactulose 10 gm PO BID udc 05/24/17 [Rx] Omeprazole [PriLOSEC] 20 mg PO DAILY@0630 capsule. 05/24/17 [Rx] Rivaroxaban [Xarelto] 10 mg PO 1700 tablet 05/24/17 [Rx] Cholecalciferol (Vitamin D3) [Vitamin D3] 50,000 unit PO AD 06/11/17 [History] Lactobacillus Combo No.11 [Probiotic] 2 each PO BID 06/11/17 [History] Melatonin [Melatin] 3 mg PO HS 06/11/17 [History] Spironolactone [Aldactone] 12.5 mg PO DAILY 06/11/17 [History] Acetaminophen [Tylenol] 1,000 mg PO Q4HR PRN tablet 06/20/17 [Rx] Ascorbic Acid [Vitamin C] 500 mg PO DAILY tablet 06/20/17 [Rx] Bumetanide [Bumex] 2 mg IVP Q8HR vial 06/20/17 [Rx] Darbepoetin [Aranesp] 60 mcg SQ Q2W syringe 06/20/17 [Rx] Zinc Sulfate 220 mg PO BID capsule 06/20/17 [Rx] Allergies/Adverse Reactions: 3 Allergy/AdvReac Type Severity Reaction Status Date / Time Penicillins Allergy Hives Verified 05/07/17 00:15 - Respiratory Orders Oxygen / L per min (2 L/NC prn to keep sats 90s) Smoking Cessation: Smoking cessation has been advised. For more information, call the [place] Tobacco Quit Line at 1-651-VMII-NOW. - Ancillary Orders May use pressure relief devices daily prn, May go on DEANNA w/family/respon green party w /meds at nurse discretion PRN - Advance Directives Code Status: DNR-Arrest/Don't Intubate - Mobility Orders Other (assist to bedside commode, up in chair. Advance as per PT/OT) - Rehabiliation Orders Rehab Potential: Good Rehab Orders: Evaluation for Physical Therapy, Evaluation for Occupational Therapy - Treatments Skin tear care topically daily PRN per policy - Diet Orders Cardiac CERTIFICATION: I certify that the transfer of the above named patient to an Extended Care Facility is necessary for the continuing treatment of the diagnosis listed. The above information is true and accurate reflection of patient's current condition. Confidential - Redisclosure prohibited without a patient's written consent.
[2017-06-21 07:58] LABS: Basophils % 0.4 %; Eosinophils % 0.4 %; Hematocrit 25.7 % (37.5-50.1); Hemoglobin 8.1 g/dL (12.9-16.9); Immature Granulocytes % 0.4 % (0-4); Lymphocytes # 0.5 K/mcL (0.6-4.6); Lymphocytes % 5.1 %; Mean Corpuscular HGB Conc 31.5 g/dL (31.6-35.5); Mean Corpuscular Volume 85.7 fL (83.0-100.0); Monocytes # 1.1 K/mcL (0.0-1.3); Monocytes % 10.9 %; Neutrophils # 8.7 K/mcL (1.6-8.9); Platelet Count 247 K/mcL (140-400); Red Cell Distribution Width 17.3 % (11.5-14.5); Segmented Neutrophils % 82.8 %
[2017-06-21] MEDS: Lactulose Oral Soln 20 GM/30 ML UDC PO SCH (08:24)
[2017-06-21] MEDS: Multivit/Ca/Min/Fe/FA 1 TAB TABLET PO SCH (08:25)
[2017-06-21] MEDS: Aspirin Enteric Coated 81 MG Tablet PO SCH (08:25)
[2017-06-21] MEDS: Cholecalciferol (D-3) 1,000 UNIT TABLET PO SCH (08:25)
[2017-06-21] MEDS: Ascorbic Acid 500 MG TABLET PO SCH (08:25)
[2017-06-21] MEDS: Lactobacillus 1 EACH CAP.SPRINK PO SCH (08:25)
[2017-06-21] MEDS: *HR* Amiodarone 200 MG TABLET PO SCH (08:26)
[2017-06-21] MEDS: Isosorbide MONOnitrate (24 HR) 30 MG TAB.ER.24H PO SCH (08:26)
[2017-06-21] MEDS: Spironolactone 25 MG TABLET PO SCH (08:26)
[2017-06-21] MEDS: Finasteride 5 MG TABLET PO SCH (08:26)
[2017-06-21] MEDS: Zinc Sulfate 220 MG CAPSULE PO SCH (08:27)
== END 2017-06-21 12:30 | DRG 556 ==
LOC: INPGRE 12:05
PROVIDERS: ADMIT Family Medicine; ATTEND Family Medicine